=== PATIENT | male | born 1960 | race Caucasian/White ===

== ENCOUNTER 2021-06-25 17:15 | Emergency (ER) | payer OTHER, SELFPAY ==
--- NOTE | ~2021-06-25 | XR_ITS ---
EXAMINATION: XR ABDOMEN KUB CLINICAL INDICATION: Constipation. COMPARISON: None. TECHNIQUE: AP view of the abdomen. FINDINGS: Nonobstructive bowel gas pattern. Moderate stool burden in the right hemicolon. Radiopaque cholelithiasis. No acute osseous abnormalities. XR/XR KUB IMPRESSION: Nonobstructive bowel gas pattern. Moderate stool burden in the right hemicolon.
--- NOTE | ~2021-06-25 | CT_ITS ---
EXAMINATION: CT ABDOMEN AND PELVIS WITH CONTRAST CLINICAL INFORMATION: Constipation and urinary retention for 4 days. COMPARISON: None. TECHNIQUE: Multidetector volumetric images were obtained from the superior aspect of the liver through the pubic symphysis following administration 85 mL of Omnipaque 350 intravenous contrast. Sagittal and coronal reformatted images were obtained on the technologist's workstation. Oral contrast: No This CT examination was performed using dose optimization techniques as appropriate, variously including the following: *Automated exposure control *Adjustment of mA and/or kV according to patient size (this includes techniques or standardized protocols for targeted exams where dose is matched to indication/reason for exam; i.e. extremities or head) *Use of iterative reconstruction technique DLP: 658 mGy-cm FINDINGS: LUNG BASES: No focal consolidation or pleural effusion. LIVER, GALLBLADDER, AND BILIARY TREE: The liver measures 21 cm craniocaudally and is otherwise normal in shape and attenuation without discrete focal abnormalities. Cholelithiasis but no evidence of acute cholecystitis. No biliary ductal dilatation. PANCREAS: Unremarkable. SPLEEN: Unremarkable. ADRENAL GLANDS: Unremarkable. KIDNEYS AND URETERS: There are several bilateral water density cysts with also a few additional hypodensities that are too small to characterize although statistically are likely to represent simple cysts. No hydronephrosis or nephrolithiasis. Mild nonspecific perinephric fat stranding. BLADDER: Distended urinary bladder without focal abnormalities or intraluminal calculi. No perivesical fat stranding. GASTROINTESTINAL TRACT: The stomach and the small bowel are nondilated. Small duodenal diverticuli. There are several fluid filled loops of the small bowel which could be seen in the setting of gastroenteritis/diarrhea. Normal appendix. Sigmoid diverticulosis. No pericolonic inflammatory changes or bowel obstruction. ABDOMINAL WALL: No significant hernia is appreciated. LYMPH NODES: Periportal and peripancreatic lymphadenopathy, for instance measuring 2.8 x 1.5 cm (3:28) and 2.2 x 1.7 cm (3:27). VASCULAR: Scattered atherosclerotic disease. PELVIC VISCERA: Unremarkable. OSSEOUS STRUCTURES: Age indeterminate posterior wedging at L5. Thoracolumbar spondylosis. CT/CT abdomen pelvis w con IMPRESSION: 1. Fluid filled distended loops of small bowel are nonspecific in the absence of significant associated hyperemia or inflammatory changes, and could be seen in the setting of gastroenteritis or diarrhea. 2. Hepatomegaly. 3. Cholelithiasis but no evidence of acute cholecystitis. 4. Diverticulosis but no evidence of acute diverticulitis. 5. Periportal and peripancreatic lymphadenopathy. Recommend clinical correlation with any risk factors to assess further management of these lymph nodes. A follow-up CT could be obtained if clinically indicated. 6. Age indeterminate posterior wedging at L5, correlate for point tenderness.
[2021-06-25 17:37] VITALS: BP 188/89; PULSE 98; RESP 20; TEMP 36.5; O2SAT 97; BMI 27.4
[2021-06-25 19:29] LABS: MANUAL DIFF FLAG NO
[2021-06-25 19:30] LABS: Basophils Percent Auto 0.2 % (0-2); Eosinophils Absolute Auto 0.1 X10*3/uL (0.0-0.4); Eosinophils Percent Auto 1.1 % (0-4); Hematocrit 44.1 % (42.0-52.0); Hemoglobin 15.1 g/dl (14.0-18.0); Imm Gran Abs Auto 0.02 X10*3/uL (0.00-0.03); Imm Gran Pct Auto 0.2 % (0.0-0.4); Lymphocytes Absolute Auto 1.7 X10*3/uL (1.2-4.9); Lymphocytes Percent Auto 19.7 % (20-40); Mean Corpuscular HGB Conc 34.2 g/dl (31.0-36.0); Mean Corpuscular Hemoglobin 28.1 pg (27.0-33.0); Mean Corpuscular Volume 82.1 fL (80.0-98.0); Mean Platelet Volume 8.9 fL (9.4-12.4); Monocytes Absolute Auto 0.8 X10*3/uL (0.1-1.2); Monocytes Percent Auto 8.7 % (2-11); Neutrophils Absolute Auto 6.2 x10*3/uL (2.0-8.3); Neutrophils Percent Auto 70.1 % (45-73); Platelet Count 209 X10*3/uL (160-400); Red Blood Count 5.37 X10*6/uL (4.60-5.80); Red Cell Distribution Width 12.1 % (11.0-16.0); White Blood Count 8.8 X10*3/uL (4.8-10.8)
[2021-06-25 19:50] LABS: Alanine Aminotransferase 33 U/L (0-40); Albumin Level 4.3 g/dL (3.5-5.0); Alkaline Phosphatase 95 U/L (39-117); Anion Gap 13 (12-20); Aspartate Amino Transferase 19 U/L (5-37); Bilirubin Total 0.8 mg/dL (0.0-1.0); Blood Urea Nitrogen 11 mg/dL (9-16); Calcium 9.4 mg/dL (8.4-10.2); Carbon Dioxide 31 mmol/L (22-29); Chloride 95 mmol/L (96-108); Creatinine Clr Calc Pharmacy 108.2; Estimated Glomerular Filt Rate > 60; Glucose Random 261 mg/dL (60-115); Lipase 26 U/L (8-78); Potassium 4.3 mmol/L (3.3-5.1); Sodium 135 mmol/L (135-145)
--- NOTE | 2021-06-25 19:54 | ED_ITS ---
HPI - Abdominal Pain General Chief Complaint: General Medical Stated Complaint: Constipated Time Seen by Provider: 06/25/21 17:28 Source: patient Mode of arrival: ambulatory Limitations: no limitations History of Present Illness HPI narrative: 61-year-old male with a past medical history of hypertension and diabetes presenting to the ED with complaints of nausea with associated cold sweats/diaphoresis, urinary retention and constipation over the past 4 days worse today. Reports that initially on Sunday he felt like he had flu like symptoms he reports subjective fevers, chills and body aches he took a COVID t est was negative. Then on Sunday he developed some constipation and urinary urgency/frequency although decreased urine output. Reports he has had small little balls of bowel movements barely nothing at all. Reports when he wipes he sees bright red blood which he believes may be related to hemorrhoids. He does not see blood makes in the small little balls of stool that he is having. Reports that his father is approximately 90 years old and was diagnosed with colon cancer approximately 20 years ago. He reports that he has taken multiple uqpd-xjh-pfzlegc medications such as laxatives and stool softeners along with enemas and no symptomatic relief. He reports he has been unable to take his blood pressure medication because he has not been feeling good since Sunday therefore this is why his blood pressure is elevated at 1 80/89 today. He denies blood in the toilet without bowel movement. He denies any measured fevers, dizziness, headaches, neck pain/stiffness, trouble swallowing or breathing, chest pain or shortness of breath, dyspnea on exertion, orthopnea, palpitations, paresthesias, radiation of the abdominal pain, abnormal penile discharge, diarrhea, recent travel, sick contacts, recent bad food exposure, recent antibiotic usage or any other symptoms complaints or concerns at this time. MD elicited complaint: abdominal pain Onset (ago): day(s) (4) Pain Consistency: constant Location: diffuse Severity: severe Quality: aching and fullness Radiation: none Migration to: no migration Exacerbating factors: nothing Relieving factors: nothing Associated symptoms: nausea Related Data Previous Rx's Medication Instructions Recorded amoxicillin 875 mg-potassium 1 tab PO BID 7 Days #14 tab 06/25/21 clavulanate 125 mg tablet oxycodone 5 mg tablet 5 mg PO Q6H PRN #10 tab 06/25/21 peg 3350-electrolytes 236 240 ml PO Q10M #4000 ml 06/25/21 gram-22.74 gram-6.74 gram-5.86 gram solution (Golytely) phenazopyridine 100 mg tablet 100 mg PO TID PRN #6 tab 06/25/21 (Pyridium) tamsulosin 0.4 mg capsule (Flomax) 0.4 mg PO DAILY 30 Days #30 cap 06/25/21 Allergies Allergy/AdvReac Type Severity Reaction Status Date / Time No Known Allergies Allergy Verified 06/25/21 17:28 Review of Systems Review of Systems Constitutional : No Fever, No Chills, No Night Sweats, No Fatigue, No Malaise Cardiovascular : No Chest Pain, No SOB Respiratory : No Cough, No Sputum, No Wheezing, No Dyspnea Gastrointestinal : + Nausea, + abdominal pain, + Constipation, No Vomiting, No Diarrhea, No Hematochezia, No Melena Genitourinary : + urinary retention/urinary urgency/frequency/dysuria, No irregular bleeding, No Hematuria,No Urinary Incontinence, No Flank Pain Musculoskeletal : No joint pain, No Myalgias, No Joint Swelling Skin : No Skin Lesions, No rash Neuro : No Weakness, No Numbness, No Paresthesias, No Loss of Consciousness, No Dizziness, No Headache Heme/Lymph: No Lymphadenopathy Endocrine : No Temperature Intolerance Yes all other systems are reviewed and are negative [facility] Past Medical History Attestation statement: The following information was validated with the patient. Medical History Diabetes HTN (hypertension) Surgical History History of right coronary artery stent placement Social History Social History Advance Directives: No Advance Directives Information Provided: No Physical Exam ED Vital Signs: Vital Signs - 24 hr 06/25/21 17:37 06/25/21 21:12 Temperature 97.7 F 98.8 F Pulse Rate 98 85 Respiratory Rate 20 18 Blood Pressure 188/89 H 190/95 H Pulse Oximetry 97 94 BMI result Body Mass Index 27.4 vital signs have been reviewed as normal and appeared to be correct. Blood pressure 188/89. Heart rate normal. Respiration rate normal. Temperature normal. Oxygen saturation normal. Appearance: Alert. Oriented X3. No acute distress. Head: Normal external exam. Normocephalic. Atraumatic. Eyes: PERRLA. EOMI. Conjunctiva and sclera normal. Eyelids normal. ENT: Pharynx normal. Uvula midline. Moist mucous membranes. No lesions/ulcerations or masses noted on the tongue. Normal voice. No trismus noted. No drooling noted. No muffled voice noted. Neck: Normal inspection. Neck supple. FROM. No adenopathy. Thyroid Normal. No meningeal signs. No neck mass noted. CVS: Normal heart rate and rhythm. Heart sound normal. Pulses normal throughout. No murmurs/rales/gallops. Respiratory: No respiratory distress. Painless inspiration. Breath sounds normal. No wheezes/rales/rhonchi noted. Chest nontender. No accessory muscle usage noted or decreased air movement noted. Abdomen: Firm and tender to palpation diffusely questioning distention. Decreased bowel sounds noted. No organomegaly noted. No visible injury noted. Back: No CVA tenderness. Full range of motion noted. Nontender. No signs of trauma. Patient neuro intact bilaterally and distally on all 4 extremities. Patient's reflexes intact bilaterally and distally on all 4 extremities. No rashes/lesion/induration/fluctuance or signs of infection noted. Skin: Skin warm and dry. Normal skin color. Normal skin turgor. No rashes/lesions/lacerations noted. Extremities: No lower extremity edema. No calf tenderness is noted. Extremities exhibit normal range of motion and nontender. Neuro: Oriented X 3. No motor deficit. No sensory deficit. Reflexes normal. Normal steady gait. No focal neuro deficits noted. CN's II-XII intact bilaterally? Vascular: + radial pulses/+ 2 distal pedal pulses/+2 dorsalis pedis b/l. Normal cap refill. No cyanosis noted to upper extremity nails and lower extremity toes nails. Course Course Course Narrative: 20pm - 61-year-old male with a past medical history of hypertension and diabetes presenting to the ED with complaints of nausea with associated cold sweats/di aphoresis, urinary retention and constipation over the past 4 days worse today. Reports that initially on Sunday he felt like he had flu like symptoms he reports subjective fevers, chills and body aches he took a COVID test was negative. Then on Sunday he developed some constipation and urinary u rgency/frequency although decreased urine output. Reports he has had small little balls of bowel movements barely nothing at all. Reports when he wipes he sees bright red blood which he believes may be related to hemorrhoids. He does not see blood makes in the small little balls of stool that he is having. Reports that his father is approximately 90 years old and was diagnosed with colon cancer approximately 20 years ago. He reports that he has taken multiple fjyu-edy-nztceys medications such as laxatives and stool softeners along with enemas and no symptomatic relief. He reports he has been unable to take his blood pressure medication because he has not been feeling good since Sunday t herefore this is why his blood pressure is elevated at 180/89 today. - Patient had labs while he was in the waiting room and chloride 95. Carbon dioxide 31. Random glucose 261. Otherwise all other labs are within normal limits. - KUB revealed nonobstructive bowel gas pattern with moderate stool burden on the right hemicolon otherwise no other acute processes. Therefore at this time will obtain a CT scan abdomen pelvis with IV contrast to evaluate for possible obstruction versus mass versus other acute processes. Provide a L of IV fluids with 4 mg of Zofran and 4 mg of morphine. Obtain a bladder scan and possibly place a Donaldson catheter then re-evaluate. Reevaluation(s) Reevaluation #1: - bladder scan had over a 1000 mL of urine therefore a Donaldson catheter was placed. Patient feels much better after the Donaldson catheter was placed. - CT scan abdomen pelvis with IV contrast revealed possible gastroenteritis or diarrhea. Hepatomegaly. Cholelithiasis no evidence of acute cholecystitis. Diverticulosis but no evidence of acute diverticulitis. Also periportal and peripancreatic lymphadenopathy. And age determinate posterior wedging at L5 otherwise no other acute processes. Therefore I printed out the results and discuss all these findings with the patient and I explained to him that he should follow-up with his PCP for further evaluation treatment and possible an endoscope/colonoscopy. I explained to him that I will send him home with Flomax for possible enlarged prostate and the Donaldson catheter in place along with constipation medications and pain meds although I explained to him that some of these pain meds can make his constipation worse therefore explained to him that he should take it lightly with the pain meds although he reports that his abdomen is in pain and he needs something for pain to go home. Along with instructions to follow-up with the urologist this week for further evaluation treatment on his urinary retention possible enlarged prostate. Patient understands agrees with this plan. Time: 22:51 MDM - Abdominal Pain Medical Records Attestation: I reviewed the patient's medical records. Lab Data Attestation: I reviewed the patient's lab results. Result diagrams: 06/25/21 19:23 06/25/21 19:23 Labs: Lab Results 06/25/21 06/25/21 06/25/21 Range/Units 19: 19: 21:14 WBC 8.8 (4.8-10.8) X10*3/uL RBC 5.37 (4.60-5.80) X10*6/uL Hgb 15.1 (14.0-18.0) g/dl Hct 44.1 (42.0-52.0) % MCV 82.1 (80.0-98.0) fL MCH 28.1 (27.0-33.0) pg MCHC 34.2 (31.0-36.0) g/dl RDW 12.1 (11.0-16.0) % Plt Count 209 (160-400) X10*3/uL MPV 8.9 L (9.4-12.4) fL Immature Gran % (Auto) 0.2 (0.0-0.4) % Neut % (Auto) 70.1 (45-73) % Lymph % (Auto) 19.7 L (20-40) % [place] % (Auto) 8.7 (2-11) % Eos % (Auto) 1.1 (0-4) % Baso % (Auto) 0.2 (0-2) % Lymph # (Auto) 1.7 (1.2-4.9) X10*3/uL [place] # (Auto) 0.8 (0.1-1.2) X10*3/uL Eos # (Auto) 0.1 (0.0-0.4) X10*3/uL Baso # (Auto) 0.0 (0.0-0.2) X10*3/uL Abs Immat Gran (auto) 0.02 (0.00-0.03) X10*3/uL Absolute Neuts (auto) 6.2 (2.0-8.3) x10*3/uL Absolute Nucleated RBC 0.000 (0.0-0.012) X10*3/uL Nucleated RBC % (auto) 0.0 (0.0-0.2) /100WBC Sodium 135 (135-145) mmol/L Potassium 4.3 (3.3-5.1) mmol/L Chloride 95 L (96-108) mmol/L Carbon Dioxide 31 H (22-29) mmol/L Anion Gap 13 (12-20) BUN 11 (9-16) mg/dL Creatinine 0.82 (0.5-1.4) mg/dL Estim Creat Clear Calc 108.2 Estimated GFR > 60 Random Glucose 261 H (60-115) mg/dL Calcium 9.4 (8.4-10.2) mg/dL Total Bilirubin 0.8 (0.0-1.0) mg/dL AST 19 (5-37) U/L ALT 33 (0-40) U/L Alkaline Phosphatase 95 (39-117) U/L Total Protein 8.0 (6.5-8.0) g/dL Albumin 4.3 (3.5-5.0) g/dL Lipase 26 (8-78) U/L Urine Color YELLOW Urine Appearance CLEAR Urine pH 7.0 (5.0-8.0) Ur Specific [place] 1.015 (1.005-1.025) Urine Protein NEG (NEG-TRACE) MG/DL Urine Glucose (UA) >=1000 H (NEG) MG/DL Urine Ketones NEG (NEG) MG/DL Urine Blood NEG (NEG) Urine Nitrite NEG (NEG) Ur Leukocyte Esterase NEG (NEG) Urine RBC 0-2 (0) /HPF Urine WBC 0-2 (0-4) /HPF Ur Squamous Epith Cells TRACE /LPF Urine Bacteria NONE /LPF Imaging Data KUB : Attestation: I personally reviewed and interpreted this imaging study as follows: Radiologist's impression: FINDINGS: Nonobstructive bowel gas pattern. Moderate stool burden in the right hemicolon. Radiopaque cholelithiasis. No acute osseous abnormalities. XR/XR KUB IMPRESSION: Nonobstructive bowel gas pattern. ? Moderate stool burden in the right hemicolon. CT scan abdomen pelvis with IV contrast: Attestation: I personally reviewed and interpreted this imaging study as follows: Radiologist's impression: FINDINGS: LUNG BASES: No focal consolidation or pleural effusion.? LIVER, GALLBLADDER, AND BILIARY TREE: The liver measures 21 cm craniocaudally and is otherwise normal in shape and attenuation without discrete focal abnormalities. Cholelithiasis but no evidence of acute cholecystitis. No biliary ductal dilatation. PANCREAS: Unremarkable.? SPLEEN: Unremarkable.? ADRENAL GLANDS: Unremarkable.? KIDNEYS AND URETERS: There are several bilateral water density cysts with also a few additional hypodensities that are too small to characterize although statistically are likely to represent simple cysts. No hydronephrosis or nephrolithiasis. Mild nonspecific perinephric fat stranding.? BLADDER: Distended urinary bladder without focal abnormalities or intraluminal calculi. No perivesical fat stranding.? GASTROINTESTINAL TRACT: The stomach and the small bowel are nondilated. Small duodenal diverticuli. There are several fluid filled loops of the small bowel which could be seen in the setting of gastroenteritis/diarrhea. Normal appendix. Sigmoid diverticulosis. No pericolonic inflammatory changes or bowel obstruction.? ABDOMINAL WALL: No significant hernia is appreciated.? LYMPH NODES: Periportal and peripancreatic lymphadenopathy, for instance measuring 2.8 x 1.5 cm (3:28) and 2.2 x 1.7 cm (3:27). VASCULAR: Scattered atherosclerotic disease. PELVIC VISCERA: Unremarkable.? OSSEOUS STRUCTURES: Age indeterminate posterior wedging at L5. Thoracolumbar spondylosis.? CT/CT abdomen pelvis w con IMPRESSION: 1.? Fluid filled distended loops of small bowel are nonspecific in the absence of significant associated hyperemia or inflammatory changes, and could be seen in the setting of gastroenteritis or diarrhea. ? 2.? Hepatomegaly. ? 3.? Cholelithiasis but no evidence of acute cholecystitis. ? 4.? Diverticulosis but no evidence of acute diverticulitis. ? 5.? Periportal and peripancreatic lymphadenopathy. Recommend clinical correlation with any risk factors to assess further management of these lymph nodes. A follow-up CT could be obtained if clinically indicated. ? 6.? Age indeterminate posterior wedging at L5, correlate for point tenderness.? Critical Care Time Critical Care Time Critical Care Time: Yes Total Critical Care Time: 60 Attestation: I personally attest to this time spent taking care of the patient Discharge Plan Discharge Clinical Impression: Constipation, Acute urinary retention, Periportal lymphadenopathy Patient Disposition: Home, Self-Care Instructions: Constipation (DC), Urinary Retention in Men (ED), Lymphadenopathy (ED) Prescriptions: New amoxicillin-pot clavulanate 875-125 mg tablet 1 tab PO BID 7 Days Qty: 14 0RF oxycodone 5 mg tablet 5 mg PO Q6H PRN (Reason: pain) Qty: 10 0RF peg 3350-electrolytes [Golytely] 236-22.74-6.74 -5.86 gram recon soln 240 ml PO Q10M Qty: 4000 0RF Rx Instructions: until fecal effluent is clear tamsulosin [Flomax] 0.4 mg capsule 0.4 mg PO DAILY 30 Days Qty: 30 0RF phenazopyridine [Pyridium] 100 mg tablet 100 mg PO TID PRN (Reason: pain) Qty: 6 0RF Referrals: Zachary Pugh MD [Physician] - (Call on Sunday to make a follow-up appointment within 1 week) PhysicianHiginio [Primary Care Provider] - (You should also follow-up with her PCP within 1 week) Print Language: Burkinan
[2021-06-25] MEDS: ondansetron HCL 4 MG/2 ML VIAL IVPUSH (20:07)
[2021-06-25] MEDS: Morphine Sulfate 4 MG/ML CARTRIDGE IVPUSH (20:07)
[2021-06-25] MEDS: 0.9 % Sodium Chloride 1,000 ML 999 ML IVCONT (20:10)
[2021-06-25] MEDS: iohexoL 350 MG/ML 100 ML INFUS..BTL IV (20:36)
[2021-06-25 21:12] VITALS: BP 190/95; PULSE 85; RESP 18; TEMP 37.1; O2SAT 94
[2021-06-25 21:23] LABS: Appearance Urine CLEAR; Color Urine YELLOW; Glucose Urine UA >=1000 MG/DL (NEG); Leukocyte Esterase Urine NEG (NEG); Nitrite Urine NEG (NEG); Specific Gravity - Urine 1.015 (1.005-1.025); Urine Blood NEG (NEG); Urine Ketones NEG (NEG); Urine Protein NEG (NEG-TRACE)
[2021-06-25 21:58] LABS: RBC Urine 0-2 /HPF (0); Squamous Epithelial Cell Urine TRACE /LPF; WBC Urine 0-2 /HPF (0-4)
[2021-06-26] VITALS: BP 153/77; PULSE 92; RESP 20; TEMP 36.4; O2SAT 97
== END 2021-06-26 00:30 | disposition home or self-care (01) ==
PROVIDERS: Emergency Provider Emergency Medicine Emergency Medical Services
DX: R33.9 Retention of urine, unspecified (principal); K59.00 Constipation, unspecified; R59.1 Generalized enlarged lymph nodes; Z79.899 Other long term (current) drug therapy
CPT/HCPCS: 36415; 51702; 51798; 74018; 74177; 80053; 81001; 83690; 85025; 96361; 96374; 96375; 99284; 99291; J2270; J2405; Q9967

== ENCOUNTER → 2021-06-27 13:18 | Outpatient (BNVA) | payer OTHER, SELFPAY | DX: Z13.89 Encounter for screening for other disorder (principal) ==

== ENCOUNTER → 2021-07-26 10:27 | Outpatient (BNVA) | payer OTHER, SELFPAY | PROVIDERS: Visit Provider Urology | DX: R33.9 Retention of urine, unspecified (principal); E08.40 Diabetes mellitus due to underlying condition with diabetic neuropathy, unspecified | CPT/HCPCS: 51798; 99202 ==

== ENCOUNTER → 2021-09-28 10:24 | Outpatient (BNVA) | payer OTHER, SELFPAY | PROVIDERS: Visit Provider Urology | DX: R33.9 Retention of urine, unspecified (principal) | CPT/HCPCS: 51798; 99212 ==

== ENCOUNTER → 2022-03-31 08:57 | Outpatient (BNVA) | payer OTHER, SELFPAY | PROVIDERS: Visit Provider Urology | DX: R33.9 Retention of urine, unspecified (principal); N40.1 Benign prostatic hyperplasia with lower urinary tract symptoms; E11.69 Type 2 diabetes mellitus with other specified complication; E11.42 Type 2 diabetes mellitus with diabetic polyneuropathy; N52.1 Erectile dysfunction due to diseases classified elsewhere; I10 Essential (primary) hypertension; Z95.5 Presence of coronary angioplasty implant and graft; Z79.899 Other long term (current) drug therapy | CPT/HCPCS: 51798; 99212 ==

== ENCOUNTER 2022-04-10 10:50 | Outpatient (REF) | payer OTHER, SELFPAY ==
[2022-04-10 12:13] LABS: MANUAL DIFF FLAG NO
[2022-04-10 12:31] LABS: Basophils Percent Auto 0.7 % (0-2); Eosinophils Absolute Auto 0.2 X10*3/uL (0.0-0.4); Eosinophils Percent Auto 2.5 % (0-4); Hematocrit 42.8 % (42.0-52.0); Hemoglobin 14.2 g/dl (14.0-18.0); Imm Gran Abs Auto 0.02 X10*3/uL (0.00-0.03); Imm Gran Pct Auto 0.3 % (0.0-0.4); Lymphocytes Absolute Auto 1.8 X10*3/uL (1.2-4.9); Mean Corpuscular HGB Conc 33.2 g/dl (31.0-36.0); Mean Corpuscular Volume 84.3 fL (80.0-98.0); Monocytes Absolute Auto 0.6 X10*3/uL (0.1-1.2); Monocytes Percent Auto 10.2 % (2-11); Neutrophils Absolute Auto 3.4 x10*3/uL (2.0-8.3); Neutrophils Percent Auto 56.3 % (45-73); Platelet Count 232 X10*3/uL (160-400); Red Blood Count 5.08 X10*6/uL (4.60-5.80)
[2022-04-10 13:11] LABS: Alanine Aminotransferase 19 U/L (0-40); Albumin Level 4.5 g/dL (3.5-5.0); Alkaline Phosphatase 79 U/L (39-117); Anion Gap 14 (12-20); Aspartate Amino Transferase 18 U/L (5-37); Bilirubin Total 0.6 mg/dL (0.0-1.0); Blood Urea Nitrogen 14 mg/dL (9-16); C Reactive Protein 0.34 mg/dL (< or = 0.50); Calcium 9.3 mg/dL (8.4-10.2); Carbon Dioxide 23 mmol/L (22-29); Chloride 104 mmol/L (96-108); Estimated Glomerular Filt Rate > 60; Glucose Random 203 mg/dL (60-115); Magnesium 1.9 mg/dL (1.6-2.6); Potassium 4.2 mmol/L (3.3-5.1); Sodium 137 mmol/L (135-145); Total Protein 7.9 g/dL (6.5-8.0)
[2022-04-10 13:22] LABS: Erythrocyte Sedimentation Rate 20 MM/HR (0-15)
[2022-04-10 13:40] LABS: Ferritin 523 ng/mL (20-250); TSH reflex Free T4 1.61 uIU/mL (0.32-4.0); Vitamin B12 403 pg/mL (200-900); Vitamin D 25-OH Total 26.5 ng/mL (>30)
[2022-04-12 22:18] LABS: Transglutaminase Ab IgG <1.0 U/mL; Transglutaminase IgA <1.0 U/mL
[2022-04-13 13:13] LABS: Vitamin C 0.7 mg/dL (0.2-2.1)
[2022-04-13 16:49] LABS: Alpha-Tocopherol 13.7 mg/L (5.7-19.9); Beta-Gamma Tocopherol 1.4 mg/L (<=4.3)
[2022-04-13 23:19] LABS: Vitamin A 62 mcg/dL (38-98)
[2022-04-14 00:17] LABS: Aldolase 4.9 U/L (<=8.1)
[2022-04-14 05:58] LABS: Zinc 84 mcg/dL (60-130)
[2022-04-14 17:33] LABS: Vitamin B1 12 nmol/L (8-30)
[2022-04-15 17:49] LABS: Nicotinamide <20 ng/mL; Vit B3 - Nicotinic Acid <20 ng/mL
[2022-04-15 19:24] LABS: Vitamin B5 (Pantothenic Acid) <40 ng/mL (<275)
[2022-04-16 20:39] LABS: Vitamin K1 848 pg/mL (130-1500)
[2022-04-18 14:33] LABS: Vitamin B6 6.8 ng/mL (2.1-21.7)
== END 2022-04-10 10:51 | disposition home or self-care (01) ==
LOC: HO.LAB 10:50
PROVIDERS: Visit Provider Internal Medicine Gastroenterology
DX: R10.33 Periumbilical pain (principal); K59.00 Constipation, unspecified; R19.7 Diarrhea, unspecified; I10 Essential (primary) hypertension; E46 Unspecified protein-calorie malnutrition; R15.9 Full incontinence of feces; K75.81 Nonalcoholic steatohepatitis (NASH); G89.29 Other chronic pain
CPT/HCPCS: 36415; 80053; 82085; 82180; 82306; 82607; 82728; 82746; 83735; 84207; 84425; 84443; 84446; 84590; 84591; 84597; 84630; 85025; 85652; 86140; 86364; 99202

== ENCOUNTER 2022-05-17 10:20 | Day surgery (SDC) | payer OTHER, SELFPAY ==
--- NOTE | 2022-05-16 12:36 | P.CONAN_ITS ---
Documented by User: Alee Huggins NP 05/16/22 12:51 HPI - Anesthesia Eval Consult details Narrative: 62yo M for Colonoscopy s/p cardiac stent ~2019. Follows PCP (unable to reach [facility] medical records for last OV note). Denies CP since. PMFSH Active Problems Active Problems: All Active Problems (Updated 04/10/22 @ 11:42 by Bonilla Sanchez MD) Malnutrition (Acute) Incontinence of feces (Acute) Erectile dysfunction associated with type 2 diabetes mellitus (Acute) Diabetic neuropathy associated with diabetes mellitus due to underlying con dition (Acute) Urinary retention with incomplete bladder emptying (Acute) Diabetes (Acute) HTN (hypertension) (Acute) Past Medical History Medical History (Updated 04/10/22 @ 11:42 by Bonilla Sanchez MD) Diabetes HTN (hypertension) Family History Family History (Updated 04/10/22 @ 11:07 by JIMENA Ritter) Father Colon cancer Surgical History Surgical History (Updated 04/10/22 @ 11:07 by JIMENA Ritter) History of right coronary artery stent placement Hx of colonoscopy Social History Social History Patient Tobacco Use Status: Former Tobacco user Meds Allergies Allergy/AdvReac Type Severity Reaction Status Date / Time No Known Allergies Allergy Verified 03/31/22 09:45 Home Medications Medication Instructions Recorded Confirmed Last Taken Type duloxetine 60 mg capsule,delayed 60 mg PO DAILY 09/27/21 Unknown History release sitagliptin phosphate 25 mg tablet 25 mg PO DAILY 09/27/21 Unknown History (Januvia) atorvastatin 40 mg tablet 40 mg PO DAILY 04/10/22 Unknown History flash glucose sensor (FreeStyle #1 ea 04/10/22 Unknown History Ella 2 Sensor kit) lisinopril 30 mg tablet 30 mg PO DAILY 04/10/22 Unknown History metformin 500 mg tablet 500 mg PO BID 04/10/22 Unknown History metoprolol tartrate 25 mg tablet 25 mg PO DAILY 04/10/22 Unknown History phenazopyridine 100 mg tablet 100 mg PO TID PRN pain 04/10/22 Unknown History (Pyridium) tadalafil 10 mg tablet 10 mg PO DAILY sexual activity 04/10/22 Unknown History trazodone 50 mg tablet 50 mg PO BEDTIME PRN 04/10/22 Unknown History Exam Exam Date and Time: May 16, 2022 1236 Pertinent Lab Results Pertinent Lab Results: Laboratory Tests 04/10/22 04/10/22 12:11 12:11 WBC 6.0 Hgb 14.2 Hct 42.8 Plt Count 232 Sodium 137 Potassium 4.2 Chloride 104 Carbon Dioxide 23 BUN 14 Creatinine 0.84 Assessment and Plan Assessment Anesthesia Assessment: Chart Reviewed Documented by User: Ck Link MD 05/17/22 16:57 HPI - Anesthesia Eval Consult details Narrative: 62yo M for Colonoscopy s/p cardiac stent ~2018. Follows PCP (unable to reach [facility] medical records for last OV note). Denies CP since. numbness , b/ l LE chronic back pain s/p back surgery PMFSH Past Medical History Medical History (Updated 04/10/22 @ 11:42 by Bonilla Sanchez MD) Diabetes HTN (hypertension) Functional capacity: independent ambulation Family History Family History (Updated 04/10/22 @ 11:07 by JIMENA Ritter) Father Colon cancer Family history of problems with anesthesia: No Surgical History Surgical History (Updated 04/10/22 @ 11:07 by JIMENA Ritter) History of right coronary artery stent placement Hx of colonoscopy History of Problems with Anesthesia: No Social History Social History Patient Tobacco Use Status: Former Tobacco user Meds Allergies Allergy/AdvReac Type Severity Reaction Status Date / Time No Known Allergies Allergy Verified 03/31/22 09:45 Home Medications Medication Instructions Recorded Confirmed Last Taken Type duloxetine 60 mg capsule,delayed 60 mg PO DAILY 09/27/21 Unknown History release sitagliptin phosphate 25 mg tablet 25 mg PO DAILY 09/27/21 Unknown History ([place]) atorvastatin 40 mg tablet 40 mg PO DAILY 04/10/22 Unknown History flash glucose sensor (FreeStyle #1 ea 04/10/22 Unknown History Ella 2 Sensor kit) lisinopril 30 mg tablet 30 mg PO DAILY 04/10/22 Unknown History metformin 500 mg tablet 500 mg PO BID 04/10/22 Unknown History metoprolol tartrate 25 mg tablet 25 mg PO DAILY 04/10/22 Unknown History phenazopyridine 100 mg tablet 100 mg PO TID PRN pain 04/10/22 Unknown History (Pyridium) tadalafil 10 mg tablet 10 mg PO DAILY sexual activity 04/10/22 Unknown History trazodone 50 mg tablet 50 mg PO BEDTIME PRN 04/10/22 Unknown History Exam Airway Mallampati Class: III TM Dist: >3cm Neck ROM: Full Loose/Missing/Broken Teeth: Yes (Loose lower left , front upper chiipec) Heart: S1,S2 Lungs: b/l breath sounds Assessment and Plan Assessment Anesthesia Assessment: Anesthesia Plan Discussed Final Anesthetic Review Family History of Problems with Anesthesia: No History of Problems with Anesthesia: No NPO: Yes ASA Class: III Final Preanesthetic Review: Meds/Allgs Chart Reviewed, Consent Obtained/Reviewed and Anes Risks/Benef Reviewed Patient Risk: Intermediate Procedure Risk: Intermediate Anesthetic Plan Anesthetic Plan: MAC: Disposition: Standard PACU
[2022-05-17 12:20] VITALS: BMI 27.7
[2022-05-17] MEDS: Lactated Ringers 1,000 ML 100 ML IVCONT (12:38)
[2022-05-17 12:39] VITALS: BP 133/72; PULSE 58; RESP 18; TEMP 36.5; O2SAT 93
[2022-05-17 12:41] LABS: Glucose, Whole Blood 165 mg/dL (60-115)
--- NOTE | 2022-05-17 13:34 | MHC.SHP ---
Pre-Procedural Eval Section A Date of Service: 05/17/22 Section B Chief Complaint: Full incontinence of feces Details of Present Illness: father had CRC Relevant Family History (Specify if Yes): Yes Relevant Social History: None Present Medications: see Short Stay Collaborative assessment Medical History: Significant History (DM, HTN, ED) History of Previous Operations: Relevant previous surgery/procedure and date(s) (amputation -partial of foot) Allergies: Allergies Allergy/AdvReac Type Severity Reaction Status Date / Time No Known Allergies Allergy Verified 03/31/22 09:45 Review of Systems Sugical H&P ROS: Negative: Constitution, Cardiovascular, Respiratory, Neurological, Psychiatric, Hem-Onc, Allergic/Immunologic, Gastrointestinal, Genitourinary, Musculoskeletal, Integumentary, Endocrine and Eyes/Ears/Nose/Throat Exam Surgical H&P Exam: Normal: HEENT, Normal: Heart, Normal: Lungs, Normal: Extremities, Normal: Abdomen, Normal: Skin and Normal: Neurological Plan Diagnosis/Plan: Unchanged I have reviewed the history and physical and performed a pertinent physical examination on my patient. No changes have occurred unless specified. Time Spent With Patient Time: Total time managing care of this patient today ____ minutes.
--- NOTE | 2022-05-17 13:36 | P.OP_ITS ---
Operative Note Operative Note Date of Service: 05/17/22 Narrative: Operative Information Procedure Description: Colonoscopy Indication: fecal incontinence Anesthesia: MAC COLONOSCOPY Instrument: Olympus variable stiffness pediatric scope 190L Colonoscopy Monitoring: Vital signs and clinical assessment, continuous EKG monitoring, Pulse oximetry, Carbon Dioxide monitoring and blood pressure monitoring were done throughout the procedure. Colon withdrawal time was 8 minutes. Procedure: The patient was placed in the left lateral decubitis position and pre-procedure medications were administered. After a digital rectal examination of the ano-rectum, the video colonoscope was inserted into the rectum and advanced through the colon to the cecum/TI. The colonoscope was slowly withdrawn in a retrograde panoramic fashion and the colon mucosa was carefully examined including a retroflexed view of the rectum. Findings and interventions are described below. Procedure Difficulty: easy, anal tone was lax Findings: Terminal Ileum-normal, random bx taken Cecum: slightly granular mucosa, bx taken Ascending Colon: normal, random bx taken, few tics seen Transverse Colon -normal Descending Colon:normal Sigmoid Colon: moderate severe diverticulosis noted, random bx taken Rectum: Retroflexion with medium sized internal hemorrhoids, grade I, random bx taken Anorectum - normal Colon preparation: [place] Bowel Preparation Scale Right colon; 2 Transverse colon: 2 Left colon; 1-2 (0 = Unprepared colon segment with mucosa not seen due to solid stool that cannot be cleared. 1 = Portion of mucosa of the colon segment seen, but other areas of the colon segment not well seen due to staining, residual stool and/or opaque liquid. 2 = Minor amount of residual staining, small fragments of stool and/or opaque liquid, but mucosa of colon segment seen well. 3 = Entire mucosa of colon segment seen well with no residual staining, small fragments of stool or opaque liquid) Impression and Post Procedure Diagnosis: internal hemorrhoids diverticular disease lax anal sphincter Plan: High fiber diet leaflet Avoid straining at stool, epsom salts and sitz bath, anusol supps or cream Repeat Colonoscopy in 5 years due to FH and fair prep on left or earlier if clinically indicated try fiber 3 times a week, e.g M, W, Fri (he felt fiber was constipating him too much) Above findings were reviewed with the patient and relevant handouts were provided if indicated.
[2022-05-17 14:31] VITALS: BP 124/60; PULSE 59; RESP 20; TEMP 36.8; O2SAT 94
[2022-05-17 14:45] VITALS: BP 117/57; PULSE 60; RESP 20; O2SAT 96
[2022-05-17 15:00] VITALS: BP 123/48; PULSE 62; RESP 16; TEMP 36.9; O2SAT 97
== END 2022-05-17 15:20 | disposition home or self-care (01) ==
PROVIDERS: Visit Provider Internal Medicine Gastroenterology
PROC: 0DJD8ZZ Inspection of Lower Intestinal Tract, Via Natural or Artificial Opening Endoscopic (ICD-10-PCS; CPT 45378; principal; 2022-05-17 13:00)
DX: R15.9 Full incontinence of feces (principal); E46 Unspecified protein-calorie malnutrition; Z68.28 Body mass index [BMI] 28.0-28.9, adult; Z80.0 Family history of malignant neoplasm of digestive organs; K57.30 Diverticulosis of large intestine without perforation or abscess without bleeding; K64.0 First degree hemorrhoids; K62.89 Other specified diseases of anus and rectum; I10 Essential (primary) hypertension; N52.1 Erectile dysfunction due to diseases classified elsewhere; E11.40 Type 2 diabetes mellitus with diabetic neuropathy, unspecified; Z79.84 Long term (current) use of oral hypoglycemic drugs; Z79.899 Other long term (current) drug therapy; Z87.891 Personal history of nicotine dependence
CPT/HCPCS: 45380; 82947; 88305

== ENCOUNTER → 2022-06-28 13:37 | Outpatient (BNVA) | payer OTHER, SELFPAY | PROVIDERS: PCP Physician Assistant Medical; Visit Provider Urology ==

== ENCOUNTER 2022-06-30 14:11 | Outpatient (REF) | payer OTHER, SELFPAY | END 2022-06-30 14:12 | disposition home or self-care (01) | LOC: HO.LAB 14:11 | PROVIDERS: Visit Provider Internal Medicine Gastroenterology | DX: Z91.018 Allergy to other foods (principal) | CPT/HCPCS: 36415; 86003 ==

== ENCOUNTER 2022-09-01 09:24 | Outpatient (REF) | payer OTHER, SELFPAY | END 2022-09-01 09:25 | disposition home or self-care (01) | LOC: HO.LAB 09:24 | PROVIDERS: PCP Physician Assistant Medical; Visit Provider Internal Medicine Gastroenterology | DX: K52.82 Eosinophilic colitis (principal) | CPT/HCPCS: 99212 ==

== ENCOUNTER 2022-09-20 16:08 | Outpatient (REF) | payer OTHER, SELFPAY ==
[2022-09-27 17:53] LABS: Lactoferrin, Fecal, Quant. <6.25 mcg/mL (<7.25)
== END 2022-09-20 16:09 | disposition home or self-care (01) ==
LOC: HO.LNP 16:08
PROVIDERS: Visit Provider Internal Medicine Gastroenterology
DX: K52.82 Eosinophilic colitis (principal)
CPT/HCPCS: 83631

== ENCOUNTER 2022-10-11 10:05 | Outpatient (AMB) | payer OTHER, SELFPAY ==
--- NOTE | 2022-10-11 10:06 | MHC.OFFVIS ---
Intake Intake Visit Reasons: H&P (Interstim I&II) Intake Note: Pt presents as a telehealth today for a H&P Interstim I&II. Allergies No Known Allergies Allergy (Verified 10/11/22 10:07) HPI HPI Comments History of Present Illness Details Inocente is a pleasant male. He is a patient of Dr. Chavez. He is seen for the following urologic conditions - lower urinary tract symptoms - erectile dysfunction in setting of diabetes Telemedicine Evaluation 15 min Consultation [employer] Raina Video attempted Confirmed InterStim process with testing coordinator Shailesh will be present to program Has been evaluated by GI and diagnosed with ulcerative colitis and loose rectum with fecal incontinence Recommendation from Gastroenterology is for trial of InterStim Did have good response to daily tadalafil 10 mg Erectile Dysfunction in setting of diabetes Current therapy daily 10 mg tadalafil Effective response with medication and weaning of duloxetine Prior therapy on demand sildenafil Lower urinary tract symptoms Initial presentation with urinary retention background diabetes Past voiding trial after spinal intervention Had episode of spinal stenosis with urinary retention [id number] Underwent decompression with Dr. Chen Has had significant return of urinary function [facility] Medical History Diabetes HTN (hypertension) Surgical History History of right coronary artery stent placement Hx of colonoscopy Hx of discectomy Family History Father Colon cancer Social History Patient Tobacco Use Status: Former Tobacco user Review of Systems Const All systems reviewed & are unremarkable except as noted in HPI and below Reports no additional complaints Resp Reports no additional complaints GI Reports no additional complaints Reports as per HPI Musc Reports no additional complaints Physical Exam Telemedicine evaluation Appropriate responses Regular breathing rate and rhythm HEENT Head: Yes normal to inspection Ears: hearing grossly normal bilaterally Eyes General: appearance normal, both eyes and all related structures Neck Neck: Yes normal visual inspection Chest Chest palpation & inspection: normal inspection of the chest Resp Effort & Inspection: normal respiratory effort and able to speak in complete sentences Assessment & Plan Assessment & Plan (1) Urinary retention with incomplete bladder emptying: Code(s): R33.9 - Retention of urine, unspecified (2) Incontinence of feces: Code(s): R15.9 - Full incontinence of feces Plan Risks, benefits and alternatives to therapy were discussed. These include but are not limited to infection, bleeding, damage to local organs and tissues, need for further interventions. Anesthetic risks regarding cardiac arrhythmia, blood clots, and potential mortality were discussed. The patient understands the typical recovery time and the outpatient nature of the procedure. After consideration of these risks the patient gives full informed consent and they wish to move ahead with the procedure. InterStim phase 1 Patient Instructions: Imaging studies, laboratory and physical exam results were discussed and reviewed in detail. No major barriers to patient understanding were identified. An opportunity to ask questions regarding the treatment plan was provided. All questions were answered. The patient expressed understanding and agreement with the above treatment plan. The patient is aware they should contact our office by phone for worsening of their current condition or the appearance of new urologic symptoms. Compliance is encouraged with any medications and followup testing that is ordered. It is a privilege to participate in the urologic care of your patient. If you have any questions or concerns regarding treatment for the above conditions, or other urologic issues, please do not hesitate to contact me. The office telephone contact is [phone]. This note is constructed using voice recognition software. While every effort has been made to ensure accuracy lens grinder rough errors may have been included. Yours sincerely, Dr Zachary Pugh MD, [facility] - Urology Providers of Expert, Compassionate Care for the Genitourinary System Telehealth Telehealth Location of provider rendering services: practice address Location of patient: address on file Patient Identification confirmed using: Name, : Yes Telehealth method: video Patient verbally consented to treatment: Yes Patient verbally consented to billing insurance company: Yes Patient informed of any privacy concerns related to visit: Yes Coding Level of Care Code Tele Est Pt Level 3 (31033) Diagnoses Urinary retention with incomplete bladder emptying R33.9 Incontinence of feces R15.9
== END 2022-10-11 10:48 | disposition home or self-care (01) ==
LOC: HO.HUSH 10:05
PROVIDERS: PCP Physician Assistant Medical; Visit Provider Urology
DX: R33.9 Retention of urine, unspecified (principal); R15.9 Full incontinence of feces
CPT/HCPCS: 99213

== ENCOUNTER → 2022-10-11 10:05 | Outpatient (BNVA) | payer OTHER, SELFPAY | PROVIDERS: PCP Physician Assistant Medical; Visit Provider Urology ==

== ENCOUNTER 2022-10-23 09:16 | Day surgery (SDC) | payer OTHER, SELFPAY ==
[2022-10-18 15:32] VITALS: BMI 27.8
--- NOTE | ~2022-10-23 | FL_ITS ---
EXAMINATION: XR FLUOROSCOPY WITH IMAGES CLINICAL INFORMATION: Left sided stimulation placement. COMPARISON: CT scan of the abdomen and pelvis dated 06/25/2021 TECHNIQUE: Fluoroscopy Supervised By: Dr. Pugh. Fluoroscopy Time: 224.3 seconds. Cumulative Dose: 132.61 mGy. Images: 2. FL/FL guidance in OR FINDINGS/IMPRESSION: A single stimulation lead overlies the left hemipelvis. Please refer to the operative report for more detailed findings.
--- NOTE | 2022-10-23 09:24 | ECG_ITS ---
Test Reason : HX of Cardiac Stent Blood Pressure : / mmHG Vent. Rate : 056 BPM Atrial Rate : 056 BPM P-R Int : 194 ms QRS Dur : 088 ms QT Int : 456 ms P-R-T Axes : 048 051 051 degrees QTc Int : 440 ms Sinus bradycardia Otherwise normal ECG No previous ECGs available Referred By: Mario Marti Electronically Signed By:RICARDA REAVES
[2022-10-23 09:46] LABS: Glucose, Whole Blood 152 mg/dL (60-115)
[2022-10-23 09:47] VITALS: BP 131/63; PULSE 61; RESP 18; TEMP 36.7; O2SAT 96
[2022-10-23] MEDS: Lactated Ringers 1,000 ML 50 ML IVCONT (10:26)
--- NOTE | 2022-10-23 10:55 | MHC.SHP ---
Pre-Procedural Eval Section A Date of Service: 10/23/22 The patient is an INPATIENT: No Changes since office visit: No Cold of Flu in the past 2 weeks, No New Medical Problems, No Changes in Medication and No Patient answered all questions The History & Physical has been completed within 30 days and I have reviewed it.: Yes Section B Chief Complaint: Full incontinence of feces Allergies: Allergies Allergy/AdvReac Type Severity Reaction Status Date / Time No Known Allergies Allergy Verified 10/23/22 09:31 Plan I have reviewed the history and physical and performed a pertinent physical examination on my patient. No changes have occurred unless specified. Time Spent With Patient Time: Total time managing care of this patient today ____ minutes.
--- NOTE | 2022-10-23 11:13 | P.CONAN_ITS ---
HPI - Anesthesia Eval Consult details Narrative: for interstim lead test PMFSH Active Problems Active Problems: All Active Problems (Updated 10/18/22 @ 15:41 by Lisset Montague, RN) Urinary retention with incomplete bladder emptying (Acute) Diabetic neuropathy associated with diabetes mellitus due to underlying condition (Acute) Erectile dysfunction associated with type 2 diabetes mellitus (Acute) Incontinence of feces (Acute) Malnutrition (Acute) Food allergy (Acute) Eosinophilic colitis (Acute) Diabetes (Acute) HTN (hypertension) (Acute) Past Medical History Medical History CAD (coronary artery disease) Diabetes HTN (hypertension) Narrative: No problems since his stent. Family History Family History Father Colon cancer Family history of problems with anesthesia: No Surgical History Surgical History History of right coronary artery stent placement Hx of colonoscopy Hx of discectomy History of Problems with Anesthesia: No Social History Social History Patient Tobacco Use Status: Former Tobacco user Substance Use Frequency: Daily Are you DNR?: No Advance Directives: No Advance Directives Information Provided: Yes Nutrition Risks: No Nutritional Risk Meds Allergies Allergy/AdvReac Type Severity Reaction Status Date / Time No Known Allergies Allergy Verified 10/23/22 09:31 Active Medications: Current Medications Lactated Ringer's (Lr) 1,000 mls @ 50 mls/hr IVCONT .Q20H EN Last Admin: 10/23/22 10:26 Dose: 50 mls/hr Home Medications Medication Instructions Recorded Confirmed Last Taken Type sitagliptin phosphate 25 mg tablet 25 mg PO DAILY 09/27/21 10/23/22 Unknown History (Januvia) atorvastatin 40 mg tablet 40 mg PO DAILY 04/10/22 10/23/22 Unknown History flash glucose sensor (FreeStyle #1 ea 04/10/22 06/28/22 Unknown History Ella 2 Sensor kit) lisinopril 30 mg tablet 30 mg PO DAILY 04/10/22 10/23/22 Unknown History metoprolol tartrate 25 mg tablet 25 mg PO DAILY 04/10/22 10/23/22 10/23/22 History lorazepam 0.5 mg tablet (Ativan) 0.5 mg PO BEDTIME PRN Anxiety 09/01/22 10/23/22 Unknown History metformin 500 mg tablet 500 mg PO DAILY 09/01/22 10/23/22 Unknown History dextroamphetamine-amphetamine 5 mg 1 tab PO DAILY 10/11/22 10/23/22 Unknown History tablet Exam Exam Date and Time: October 23, 2022 1113 Height,Weight and Vital Signs: Height 6 ft 1 in Weight 95.708 kg Last Vital Signs Temp 98.0 F 10/23/22 09:47 Pulse 61 10/23/22 09:47 Resp 18 10/23/22 09:47 BP 131/63 10/23/22 09:47 Pulse Ox 96 10/23/22 09:47 O2 Del Method Room Air 10/23/22 09:47 Pertinent Lab Results Pertinent Lab Results: Laboratory Tests 10/23/22 09:36 POC Glucose 152 H Airway Mallampati Class: I TM Dist: >3cm Neck ROM: Full Heart: ok Lungs: ok Assessment and Plan Assessment Anesthesia Assessment: Anesthesia Plan Discussed and Chart Reviewed Final Anesthetic Review Family History of Problems with Anesthesia: No History of Problems with Anesthesia: No NPO: Yes ASA Class: III Final Preanesthetic Review: No Changes in Pt Med Stat, Meds/Allgs Chart Revie wed, Consent Obtained/Reviewed and Anes Risks/Benef Reviewed Patient Risk: Intermediate Procedure Risk: Intermediate Anesthetic Plan Anesthetic Plan: MAC: and Agree w/ Assess. and Plan Disposition: Standard PACU
--- NOTE | 2022-10-23 13:41 | W.PM.OPN ---
Operative Note Operative Note Date of Service: 10/23/22 Narrative: PreOperative Diagnosis: Overactive bladder with urinary urgency and frequency Post Operative Diagnosis: Overactive bladder with urinary urgency and frequency Procedure: 1.) Placement of InterStim lead trial Surgeon: Dr Zachary Pugh Anesthesia: sedation Indications for procedure: urinary urgency and fecal incontinence Procedure: After informed consent was verified the patient was brought to the operating room. Sedation anesthesia was administered per protocol. The patient was placed in a prone position and prepped and draped in a sterile fashion. Safety pause time-out was performed. Using the C-arm and Finder needle the S3 foramen exiting from the pelvic arch was marked horizontally from left to right as our horizontal marker. The medial aspect of foramen were highlighted and aligned with the finder needle in a vertical fashion. The intersection of these 2 lines marked the entry point on the skin of the medial aspect of the right S3 foramen. Local anesthetic was infiltrated along the vertical aspect. The finding needle was inserted into the targeted foramen. Difficult placement. S4 found on right side. The vibrator equipment tester was attached and assessed for placement with Trent response and toe movement. The initial response was predominantly Trent with minimal toe. I was not happy with lead responses. We targetted the sme forum on the left side. The initial response was predominantly Trent with minimal toe. The internal introducer from the needle was removed and the control lead placed. The finder needle was removed and the dilator sheath introduced. Under fluoroscopic guidance the dilator sheath was advanced till the marker was seen mid point through the sacral bone on the lateral image. The internal cannula from the dilator was removed. The guidewire was removed. The active lead was then introduced through the dilator sheath and advanced so that the 3rd and 4th marked electrodes crossed the internal boundary line of the sacrum. The testing electrode was then hooked up to each of the wire electrodes 0 through 3 and good Trent and no toe response is was seen at low amplitude 1.3 amps. This confirmed the clinically relevant position of the live wire. ) with less response than 1,2,3. Under live fluoroscopy the introducer sheath was removed deploying the tines of the wire ensuring that the live wire remained in the previously described position. The tunneling device was then used to bridge the distance between the sacral vertical incision and the desired location of the battery pocket. The live wire was placed through the tunneling device and brought out into the battery pocket. The sharp tunneling device tip was then exchanged for a blunt-tip and the tunneling device lead from our target battery pocket superiorly to in outlet point. The vibrator equipment tester was then placed in the retrieval device and brought back to out target battery pocket. The live lead was then attached to vibrator equipment tester. A loop of vibrator equipment tester was then created and using a Vicryl suture attached to the connector in order to allow easier location for final placement of battery and to minimize tension. Interrupted 3-0 Vicryl sutures were used to close the defect spaces and bring skin edges together. Running 4-0 Monocryl sutures were used to appose skin edges. Incisions were dressed using skin glue. The vibrator equipment tester was attached using a drain suture. Patient tolerated procedure well was extubated in operating room transferred in stable condition to the recovery area. CPT full device replacement 22442
[2022-10-23 13:51] VITALS: BP 103/53; PULSE 59; RESP 16; TEMP 36.5; O2SAT 93
[2022-10-23 13:58] LABS: Glucose, Whole Blood 148 mg/dL (60-115)
[2022-10-23 14:06] VITALS: BP 114/62; PULSE 58; RESP 14; O2SAT 97
[2022-10-23 14:21] VITALS: BP 131/62; PULSE 63; RESP 16; TEMP 36.3; O2SAT 98
== END 2022-10-23 14:42 | disposition home or self-care (01) ==
PROVIDERS: PCP Physician Assistant Medical; Visit Provider Urology
PROC: (CPT 64561; principal; 2022-10-23 12:10)
DX: N32.81 Overactive bladder (principal); R39.15 Urgency of urination; R35.0 Frequency of micturition; R33.9 Retention of urine, unspecified; R15.9 Full incontinence of feces; I10 Essential (primary) hypertension; E11.9 Type 2 diabetes mellitus without complications; I25.10 Atherosclerotic heart disease of native coronary artery without angina pectoris; Z95.5 Presence of coronary angioplasty implant and graft; Z79.84 Long term (current) use of oral hypoglycemic drugs; Z79.899 Other long term (current) drug therapy; Z87.891 Personal history of nicotine dependence
CPT/HCPCS: 64561; 82947; 93005; C1778; C1883; J0690; J2250; J2795; J3010

== ENCOUNTER → 2022-10-23 09:16 | Outpatient (BNV) | payer OTHER, SELFPAY | PROVIDERS: PCP Physician Assistant Medical; Visit Provider Urology | DX: N32.81 Overactive bladder (principal); R39.15 Urgency of urination; R35.0 Frequency of micturition | CPT/HCPCS: 64561 ==

== ENCOUNTER 2022-11-13 06:08 | Day surgery (SDC) | payer OTHER, SELFPAY ==
--- NOTE | 2022-11-10 08:58 | P.CONAN_ITS ---
Documented by User: Alee Huggins NP 11/10/22 08:59 HPI - Anesthesia Eval Consult details Narrative: 62yo M for Interstim Lead Test-Stage 2 s/p stage 1 10/2022 with MAC PMFSH Active Problems Active Problems: All Active Problems (Updated 10/18/22 @ 15:41 by Lisset Montague RN) Eosinophilic colitis (Acute) Food allergy (Acute) Malnutrition (Acute) Incontinence of feces (Acute) Erectile dysfunction associated with type 2 diabetes mellitus (Acute) Diabetic neuropathy associated with diabetes mellitus due to underlying condition (Acute) Urinary retention with incomplete bladder emptying (Acute) Diabetes (Acute) HTN (hypertension) (Acute) Past Medical History Medical History CAD (coronary artery disease) Diabetes HTN (hypertension) Family History Family History Father Colon cancer Family history of problems with anesthesia: No Surgical History Surgical History Hx of discectomy Hx of colonoscopy History of right coronary artery stent placement History of Problems with Anesthesia: No Social History Social History Patient Tobacco Use Status: Former Tobacco user Second Hand Smoke Exposure: No Use of substances other than those prescribed or required for medical reasons: Yes Are you DNR?: No Advance Directives: No Advance Directives Information Provided: Yes Advance Directives on File: No Meds Allergies Allergy/AdvReac Type Severity Reaction Status Date / Time No Known Allergies Allergy Verified 10/23/22 09:31 Home Medications Medication Instructions Recorded Confirmed Last Taken Type sitagliptin phosphate 25 mg tablet 25 mg PO DAILY 09/27/21 10/23/22 Unknown History ([place]) atorvastatin 40 mg tablet 40 mg PO DAILY 04/10/22 10/23/22 Unknown History flash glucose sensor (FreeStyle #1 ea 04/10/22 06/28/22 Unknown History Ella 2 Sensor kit) lisinopril 30 mg tablet 30 mg PO DAILY 04/10/22 10/23/22 Unknown History metoprolol tartrate 25 mg tablet 25 mg PO DAILY 04/10/22 10/23/22 10/23/22 History lorazepam 0.5 mg tablet (Ativan) 0.5 mg PO BEDTIME PRN Anxiety 09/01/22 10/23/22 Unknown History metformin 500 mg tablet 500 mg PO DAILY 09/01/22 10/23/22 Unknown History dextroamphetamine-amphetamine 5 mg 1 tab PO DAILY 10/11/22 10/23/22 Unknown History tablet Exam Exam Date and Time: November 10, 2022 0858 Pertinent Lab Results Pertinent Lab Results: Laboratory Tests 04/10/22 12:11 WBC 6.0 Hgb 14.2 Hct 42.8 Plt Count 232 Sodium 137 Potassium 4.2 Chloride 104 Carbon Dioxide 23 BUN 14 Creatinine 0.84 Narrative Narrative: EKG 10/2022 Vent. Rate : 056 BPM Atrial Rate : 056 BPM P-R Int : 194 ms QRS Dur : 088 ms QT Int : 456 ms P-R-T Axes : 048 051 051 degrees QTc Int : 440 ms Sinus bradycardia Otherwise normal ECG No previous ECGs available Assessment and Plan Assessment Anesthesia Assessment: Chart Reviewed Final Anesthetic Review Family History of Problems with Anesthesia: No History of Problems with Anesthesia: No Documented by User: Joaquin Hawthorne MD 11/13/22 08:01 [facility] Past Medical History Medical History CAD (coronary artery disease) Diabetes HTN (hypertension) Family History Family History Father Colon cancer Surgical History Surgical History Hx of discectomy Hx of colonoscopy History of right coronary artery stent placement Social History Social History Patient Tobacco Use Status: Former Tobacco user Second Hand Smoke Exposure: No Use of substances other than those prescribed or required for medical reasons: Yes Are you DNR?: No Advance Directives: No Advance Directives Information Provided: Yes Advance Directives on File: No Meds Allergies Allergy/AdvReac Type Severity Reaction Status Date / Time No Known Allergies Allergy Verified 10/23/22 09:31 Home Medications Medication Instructions Recorded Confirmed Last Taken Type sitagliptin phosphate 25 mg tablet 25 mg PO DAILY 09/27/21 10/23/22 Unknown History ([place]) atorvastatin 40 mg tablet 40 mg PO DAILY 04/10/22 10/23/22 Unknown History flash glucose sensor (FreeStyle #1 ea 04/10/22 06/28/22 Unknown History Ella 2 Sensor kit) lisinopril 30 mg tablet 30 mg PO DAILY 04/10/22 10/23/22 Unknown History metoprolol tartrate 25 mg tablet 25 mg PO DAILY 04/10/22 10/23/22 10/23/22 History lorazepam 0.5 mg tablet (Ativan) 0.5 mg PO BEDTIME PRN Anxiety 09/01/22 10/23/22 Unknown History metformin 500 mg tablet 500 mg PO DAILY 09/01/22 10/23/22 Unknown History dextroamphetamine-amphetamine 5 mg 1 tab PO DAILY 10/11/22 10/23/22 Unknown History tablet Exam Airway Mallampati Class: I TM Dist: >3cm Neck ROM: Full Loose/Missing/Broken Teeth: No Heart: ok Lungs: ok Assessment and Plan Assessment Anesthesia Assessment: Anesthesia Plan Discussed Final Anesthetic Review NPO: Yes ASA Class: III Final Preanesthetic Review: No Changes in Pt Med Stat, Meds/Allgs Chart Reviewed, Consent Obtained/Reviewed and Anes Risks/Benef Reviewed Patient Risk: Intermediate Procedure Risk: Intermediate Anesthetic Plan Anesthetic Plan: GA and Agree w/ Assess. and Plan Disposition: Standard PACU
[2022-11-13] VITALS (10 sets, daily range): BP systolic 102–141; BP diastolic 46–70; PULSE 56–65; RESP 16–20; TEMP 36.2–36.7; O2SAT 93–96; BMI 27.8
[2022-11-13 06:49] LABS: Glucose, Whole Blood 184 mg/dL (60-115)
[2022-11-13] MEDS: Lactated Ringers 1,000 ML 100 ML IVCONT (06:53)
--- NOTE | 2022-11-13 07:36 | MHC.SHP ---
Pre-Procedural Eval Section A Date of Service: 11/13/22 The patient is an INPATIENT: No Changes since office visit: No Cold of Flu in the past 2 weeks, No New Medical Problems, No Changes in Medication and No Patient answered all questions The History & Physical has been completed within 30 days and I have reviewed it.: Yes Section B Chief Complaint: Full incontinence of feces Details of Present Illness: here for phase 2 of interstim placement - good success with phase 1 leads Present Medications: see Short Stay Collaborative assessment Medical History: Significant History History of Previous Operations: Relevant previous surgery/procedure and date(s) Allergies: Allergies Allergy/AdvReac Type Severity Reaction Status Date / Time No Known Allergies Allergy Verified 10/23/22 09:31 Review of Systems Sugical H&P ROS: Negative: Constitution, Cardiovascular, Respiratory, Neurological, Psychiatric, Hem-Onc, Allergic/Immunologic, Gastrointestinal, Genitourinary, Musculoskeletal, Integumentary, Endocrine and Eyes/Ears/Nose/Throat Exam Surgical H&P Exam: Normal: HEENT, Normal: Heart, Normal: Lungs, Normal: Extremities, Normal: Abdomen, Normal: Skin and Normal: Neurological Plan Diagnosis/Plan: Unchanged (interstim phase 2 generator placement) I have reviewed the history and physical and performed a pertinent physical examination on my patient. No changes have occurred unless specified. Time Spent With Patient Time: Total time managing care of this patient today ____ minutes.
--- NOTE | 2022-11-13 08:31 | P.OP_ITS ---
Operative Note Operative Note Date of Service: 11/13/22 Narrative: PreOperative Diagnosis:?? Rectal incontinence with overactive bladder Post Operative Diagnosis:? Rectal incontinence with overactive bladder Procedure: 1) Placement of InterStim generator 2) Generator Programming Surgeon: Dr Zachary Pugh Anesthesia:? sedation Indications for procedure: Trial lead had been placed. Good response with improved social control. Here for generator placement Procedure: After informed consent was verified the patient was brought to the operating gayathri m.? Sedation anesthesia was administered per protocol. The patient was placed in a prone position and prepped and draped in a sterile fashion.? Safety pause time-out was performed. Temporary lead was divided Local anesthetic was infiltrated around the initial battery pocket incision on the right lateral superior buttock.? Incision was made and taken down through the skin until the wire connector was encountered. This was removed from the pocket. The temporary lead was removed from the connector. The pocket was expanded using sharp and blunt dissection to accommodate the generator. The generator was connected and placed in the pocket after the pocket was irrigated. Testing and programming was performed to confirm generator activity and lead impedance. Incision was closed with running 3-0 Vicryl sutures Skin was closed with running 4-0 Monocryl and dressing applied. CPT? generator placement? 36067, [id number]
[2022-11-13] MEDS: oxyCODONE HCl Immed Release 5 MG TABLET PO (08:50)
[2022-11-13] MEDS: Acetaminophen 325 MG TABLET 650 MG PO (08:50)
[2022-11-13] MEDS: fentaNYL citrate/PF 100 MCG/2 ML VIAL 50 MCG IVPUSH ×2 (08:50→08:55)
== END 2022-11-13 11:05 | disposition home or self-care (01) ==
PROVIDERS: PCP Physician Assistant Medical; Visit Provider Urology
PROC: (CPT 64590; principal; 2022-11-13 07:30)
DX: N32.81 Overactive bladder (principal); R15.9 Full incontinence of feces; R33.9 Retention of urine, unspecified; I10 Essential (primary) hypertension; E11.9 Type 2 diabetes mellitus without complications; I25.10 Atherosclerotic heart disease of native coronary artery without angina pectoris; Z95.5 Presence of coronary angioplasty implant and graft; Z79.84 Long term (current) use of oral hypoglycemic drugs; Z79.899 Other long term (current) drug therapy; Z87.891 Personal history of nicotine dependence
CPT/HCPCS: 64590; 82947; C1767; C1787; J0690; J2795; J3010

== ENCOUNTER → 2022-11-13 06:08 | Outpatient (BNV) | payer OTHER, SELFPAY | PROVIDERS: PCP Physician Assistant Medical; Visit Provider Urology | DX: R15.9 Full incontinence of feces (principal); N32.81 Overactive bladder; Z96.82 Presence of neurostimulator | CPT/HCPCS: 64590 ==

== ENCOUNTER 2022-12-08 09:12 | Outpatient (AMB) | payer OTHER, SELFPAY ==
--- NOTE | 2022-12-08 09:16 | MHC.OFFVIS ---
Intake Intake Visit Reasons: 2 month follow up Intake Note: Patient is Present for Follow Up pvr Urology Medication: Sildenafil, Tadalafil Antibiotic Allergies: None Blood Thinners: None Pharmacy: [facility] PVR: 0 Allergies No Known Allergies Allergy (Verified 12/08/22 09:19) Medication List - Last Reconciled 12/08/22 by Zachary Pugh MD atorvastatin 40 mg PO DAILY dextroamphetamine-amphetamine 5 mg 1 tab PO DAILY flash glucose sensor (FreeStyle Ella 2 Sensor kit) As directed hydrocodone-acetaminophen 5-325 mg 1 tab PO Q4H PRN 7 days lisinopril 30 mg PO DAILY lorazepam (Ativan) 0.5 mg PO BEDTIME PRN mesalamine ER 0.375 grams PO QAM metformin 500 mg PO DAILY metoprolol tartrate 25 mg PO DAILY oxycodone-acetaminophen 5-325 mg 1 tab PO Q4H PRN 7 days sildenafil 100 mg PO ONCE PRN 30 days sitagliptin phosphate (Januvia) 25 mg PO DAILY sulfamethoxazole-trimethoprim 400-80 mg (Bactrim) 1 tab PO DAILY 5 days sulfamethoxazole-trimethoprim 400-80 mg (Bactrim) 1 tab PO DAILY 5 days tadalafil 10 mg PO DAILY 90 days HPI HPI Comments History of Present Illness Details Inocente is a pleasant male. He is a patient of Dr. Chavez. He is seen for the following urologic conditions - lower urinary tract symptoms - erectile dysfunction in setting of diabetes Good response to InterStim Has rectal sensation and no more surprises Follow-up with GI Continue good response to daily 10 mg tadalafil Will refill Six month follow-up Erectile Dysfunction in setting of diabetes Current therapy daily 10 mg tadalafil Effective response with medication and weaning of duloxetine Prior therapy on demand sildenafil Lower urinary tract symptoms Initial presentation with urinary retention background diabetes Past voiding trial after spinal intervention Had episode of spinal stenosis with urinary retention [address] Chen Has had significant return of urinary function InterStim placement 06/25 PFSH Medical History CAD (coronary artery disease) Diabetes HTN (hypertension) Surgical History Hx of discectomy Hx of colonoscopy History of right coronary artery stent placement Family History Father Colon cancer Social History Patient Tobacco Use Status: Former Tobacco user Second Hand Smoke Exposure: No Review of Systems Const Denies chills and Denies fever(s) Card Reports no additional complaints and Denies syncope Resp Denies cough GI Denies abdominal pain and Denies heartburn Reports as per HPI and Denies change in libido Neuro Denies syncope Psych Denies change in libido Endo Denies change in libido Physical Exam Const General: cooperative, healthy appearing, comfortable and no acute distress Orientation/consciousness: patient oriented x3 HEENT Face and sinus: Yes normal facial exam Mouth: moist mucous membranes Neck Neck: Yes normal visual inspection, Yes full ROM and Yes trachea midline Chest Chest palpation & inspection: normal inspection of the chest Resp Effort & Inspection: normal respiratory effort, able to speak in complete sentences and no respiratory distress GI Inspection: Yes normal to inspection Back/Spine/Pelvis Cervical Spine: normal cervical lordosis Thoracic/Lumbar Spine: thoracic and lumbar spine normal to inspection Skin General skin exam: no rashes or lesions noted Neuro General: patient oriented x3, gait normal, tone normal and moves all extremities Extrem General: Yes normal to inspection and Yes capillary refill normal Office Procedures Post Void Residual Post Residual Void Post Void Residual (PVR): 0 [id number] Void Residual by ultrasound Results AMB Urinalysis, Automated UA Leukoctes 0 [place]/uL Last Edit by JIMENA Hoff on 12/08/22 09:29 UA Nitrite Negative Last Edit by JIMENA Hoff on 12/08/22 09:29 UA Urobilinogen 0.2 mg/dL Last Edit by JIMENA Hoff on 12/08/22 09:29 UA Protein 0 mg/dL Last Edit by JIMENA Hoff on 12/08/22 09:29 UA pH 6.0 Last Edit by JIMENA Hoff on 12/08/22 09:29 UA Blood 0 Mark/uL Last Edit by JIMENA Hoff on 12/08/22 09:29 UA Specific [place] 1.020 Last Edit by JIMENA Hoff on 12/08/22 09:29 UA Ketone Negative Last Edit by JIMENA Hoff on 12/08/22 09:29 UA Bilirubin 0 mg/dL Last Edit by BRYON HoffA on 12/08/22 09:29 UA Glucose 0 mg/dL Last Edit by JIMENA Hoff on 12/08/22 09:29 Results Reviewed Results Reviewed: Laboratory Last Values Urine pH (Auto) 6.0 12/08/22 09:18 Specific [place] (Auto) 1.020 12/08/22 09:18 Urine Protein (Auto) 0 mg/dL 12/08/22 09:18 Glucose (UA)(Auto) 0 mg/dL 12/08/22 09:18 Urine Ketones (Auto) Negative 12/08/22 09:18 Urine Blood (Auto) 0 Mark/uL 12/08/22 09:18 Urine Nitrite (Auto) Negative 12/08/22 09:18 Urine Bilirubin (Auto) 0 mg/dL 12/08/22 09:18 Urine Urobilinogen (Auto) 0.2 mg/dL 12/08/22 09:18 Leukocyte Esterase (Auto) 0 [place]/uL 12/08/22 09:18 Assessment & Plan Assessment & Plan (1) Incontinence of feces: Code(s): R15.9 - Full incontinence of feces Qualifiers: Fecal incontinence type: fecal urgency Qualified Code(s): R15.9 - Full incontinence of feces; R15.2 - Fecal urgency (2) Erectile dysfunction associated with type 2 diabetes mellitus: Code(s): E11.69 - Type 2 diabetes mellitus with other specified complication; N52.1 - Erectile dysfunction due to diseases classified elsewhere Plan 6 month follow-up tele Orders: Orders AMB Post Void Residual by ultrasound Today R33.9 - Retention of urine, unspecified AMB Urinalysis Automated Today Z13.9 - Encounter for screening, unspecified Patient Instructions: Imaging studies, laboratory and physical exam results were discussed and reviewed in detail. No major barriers to patient understanding were identified. An opportunity to ask questions regarding the treatment plan was provided. All questions were answered. The patient expressed understanding and agreement with the above treatment plan. The patient is aware they should contact our office by phone for worsening of their current condition or the appearance of new urologic symptoms. Compliance is encouraged with any medications and followup testing that is ordered. It is a privilege to participate in the urologic care of your patient. If you have any questions or concerns regarding treatment for the above conditions, or other urologic issues, please do not hesitate to contact me. The office telephone contact is [phone]. This note is constructed using voice recognition software. While every effort has been made to ensure accuracy heating and air conditioning mechanic errors may have been included. Yours sincerely, Dr Zachary Pugh MD, [facility] - Urology Providers of Expert, Compassionate Care for the Genitourinary System Coding Level of Care Code Est Pt Level 3 (34185) Diagnoses Incontinence of feces with fecal urgency R15.9; R15.2 Fecal incontinence type: fecal urgency Erectile dysfunction associated with type 2 diabetes mellitus E11.69; N52.1 CPT Codes Post Residual Void - PVR CPT Code: 32140-Efgk Void Residual by ultrasound ([id number])
== END 2022-12-08 09:47 | disposition home or self-care (01) ==
PROVIDERS: PCP Physician Assistant Medical; Visit Provider Urology
DX: R15.9 Full incontinence of feces (principal); R15.2 Fecal urgency; E11.69 Type 2 diabetes mellitus with other specified complication; N52.1 Erectile dysfunction due to diseases classified elsewhere; Z13.9 Encounter for screening, unspecified
CPT/HCPCS: 99213

== ENCOUNTER → 2022-12-08 09:12 | Outpatient (BNVA) | payer OTHER, SELFPAY | PROVIDERS: PCP Physician Assistant Medical; Visit Provider Urology | DX: E11.69 Type 2 diabetes mellitus with other specified complication (principal); N52.1 Erectile dysfunction due to diseases classified elsewhere; R15.9 Full incontinence of feces; R15.2 Fecal urgency | CPT/HCPCS: 51798; 81003; 99212 ==

== ENCOUNTER 2023-01-01 09:07 | Outpatient (AMB) | payer OTHER, SELFPAY ==
--- NOTE | 2023-01-01 09:10 | A.OFFVIS_ITS ---
Intake Vital Signs 01/01/23 09:12 Height 6 ft 1 in Weight 216 lb 0.848 oz BMI 28.5 BP 142/70 H Blood Pressure Location Lt brachial Position Sitting Pulse 69 Intake Visit Reasons: 2 month fu Intake Note: Inocente presents in the office as a 2 month follow up. CC: He states that he is not having any new concerns just the ongoing concerns he has been dealing with. He is trying to get colitis into remission and it does not seem to be happening. Allergies No Known Allergies Allergy (Verified 01/01/23 09:12) HPI 2 month fu HPI Details 62 yr old m here for f/u for eosinophili c colitis RECAP: He decribes problems since last when he had numbness from torso down along with bladder retention he had bladder drained and was sent home since then he has minimal feeling from waist to the feet he did get spinal surgery at July 2021 and had release of nerves from the spine, and relieved pain and neuropathy but the numbness persisted --he was told things may incrementally improve or not with time constant feeling of wanting to go to the bathroom he has been told by Dr oliver he has overlflow incontinence, he soils himself few times a week, he has no feeling of it no blood in the stool he has nausea all the time he has some pelvic fullness he can empty bladder and urinate but he has to push he had colonoscopy aged 53 and aged 46 ---may have had some polyps Colonoscopy: granular mucosa, Path with increased eosinophils RAST studies were neg lactoferrin was neg He had spinal stim placed by Dr Pugh INTERIM: He feels the stim has helped and he gets warning now he still has looser stools and has to go several times a day sometimes can be explosive and sometimes like bre hasn; had normal stools for long time stress is a major factor that makes it worse he has fatigue, poor focus sugars have been good he loves milk and drinks a lot of it EXAM: GENERAL: The patient is well developed and nontoxic. VITAL SIGNS:see workflow HEENT: Nonicteric sclerae, PERRLA, EOMI. Oropharynx clear. Moist mucous membranes. Conjunctivae appear well perfused. No thyroid mass. CHEST: Chest wall is nontender. HEART: Regular rate and rhythm without murmurs. LUNGS: Clear to auscultation bilaterally. ABDOMEN: Soft, positive bowel sounds, nontender, no organomegaly.no flank tenderness SKIN: No rash, no excessive bruising, petechiae, or purpura. NEUROLOGIC: Cranial nerves II-XII intact without motor/sensory deficit. A/P: 1/ Fecal incontinence secondary to spina l cord injury and possible diabetic autonomic neuropathy, s/p spinal stimulator 2/ eosinophilic colitis, 3/ malaise likely 2/2 opiates, maybe due to colitis Plan: 1/ trial of budeosnide, and he will watc h sugars closely, if getting too high let me know 2/ EGD to r/o upper GI cause of sx along with sigmoidoscopy for bx 3/ trial of dairy avoidance for 1 week a nd see if helps --try this before commencing budesonide [facility] Medical History CAD (coronary artery disease) Diabetes HTN (hypertension) Surgical History S/P placement of nerve stimulator Hx of discectomy Hx of colonoscopy History of right coronary artery stent placement Family History Father Colon cancer Social History Patient Tobacco Use Status: Former Tobacco user Second Hand Smoke Exposure: No Physical Exam Vital Signs: Last Vital Signs Pulse 69 01/01/23 09:12 BP 142/70 H 01/01/23 09:12 BMI result Body Mass Index 28.5 Assessment & Plan Assessment & Plan (1) Incontinence of feces: Code(s): R15.9 - Full incontinence of feces Qualifiers: Fecal incontinence type: fecal urgency Qualified Code(s): R15.9 - Full incontinence of feces; R15.2 - Fecal urgency (2) Eosinophilic colitis: Code(s): K52.82 - Eosinophilic colitis Medications: New budesonide ER 9 mg (3 x 3 mg) PO DAILY 90 ea 0RF Coding Level of Care Code Est Pt Level 4 (82154) Diagnoses Incontinence of feces with fecal urgency R15.9; R15.2 Fecal incontinence type: fecal urgency Eosinophilic colitis K52.82
[2023-01-01 09:12] VITALS: BP 142/70; PULSE 69; BMI 28.5
== END 2023-01-01 09:41 | disposition home or self-care (01) ==
PROVIDERS: PCP Physician Assistant Medical; Visit Provider Internal Medicine Gastroenterology
DX: R15.9 Full incontinence of feces (principal); R15.2 Fecal urgency; K52.82 Eosinophilic colitis
CPT/HCPCS: 99214

== ENCOUNTER → 2023-01-01 09:07 | Outpatient (BNVA) | payer OTHER, SELFPAY | PROVIDERS: PCP Physician Assistant Medical; Visit Provider Internal Medicine Gastroenterology | DX: R15.9 Full incontinence of feces (principal); R15.2 Fecal urgency; K52.82 Eosinophilic colitis | CPT/HCPCS: 99212 ==

== ENCOUNTER 2023-01-15 13:46 | Emergency (ER) | payer OTHER, SELFPAY ==
[2023-01-15 13:52] VITALS: BP 154/41; PULSE 70; RESP 18; TEMP 36.2; O2SAT 96; BMI 27.8
--- NOTE | 2023-01-15 13:52 | ED_ITS ---
HPI - General Adult General Chief complaint: GI Bleed Stated complaint: Black diarrhea Time Seen by Provider: 01/15/23 16:34 Source: patient Mode of arrival: ambulatory Limitations: no limitations History of Present Illness HPI narrative: 62 yold male with pmh of Ulcerative colitis presents to the ED for jet black diarrhea for the past two weeks. patient states diarrhea for one year and half, but black stool diarrhea the past two weeks. patient denies any dizziness, fever, chills, nausea, vomitting, flank pain, fever, chills, or rectal pain. Patient states no recent trauma to abdomen or rectal area. patient denies coughing up blood, vomitting blood, or drking alcohol. Patient admits to drinking large amounts of peptobismol lately. Patient denies any abdominal pain. Related Data Home Medications Medication Instructions Recorded Confirmed sitagliptin phosphate 25 mg tablet 25 mg PO DAILY 09/27/21 12/08/22 (Januvia) atorvastatin 40 mg tablet 40 mg PO DAILY 04/10/22 12/08/22 flash glucose sensor (FreeStyle #1 ea 04/10/22 12/08/22 Ella 2 Sensor kit) lisinopril 30 mg tablet 30 mg PO DAILY 04/10/22 12/08/22 metoprolol tartrate 25 mg tablet 25 mg PO DAILY 04/10/22 12/08/22 metformin 500 mg tablet 500 mg PO DAILY 09/01/22 12/08/22 dextroamphetamine-amphetamine ER 1 cap PO QAM 01/01/23 10 mg 24hr capsule,extend release hydrocodone 5 mg-acetaminophen 325 1 tab PO Q4H PRN pain 01/01/23 mg tablet Previous Rx's Medication Instructions Recorded sildenafil 100 mg tablet 100 mg PO ONCE PRN sexual activity 03/31/22 30 days #30 tabs tadalafil 10 mg tablet 10 mg PO DAILY sexual activity 90 12/08/22 days #90 tabs budesonide 3 mg 9 mg (3 x 3 mg) PO DAILY 90 days 01/15/23 capsule,delayed,extended release #270 ea Allergies Allergy/AdvReac Type Severity Reaction Status Date / Time No Known Allergies Allergy Verified 01/01/23 09:12 Review of Systems 2 Review of Systems: rectal bleeding Yes all other systems are reviewed and are negative PMFSH Past Medical History Medical History CAD (coronary artery disease) Diabetes HTN (hypertension) Surgical History S/P placement of nerve stimulator Hx of discectomy Hx of colonoscopy History of right coronary artery stent placement Family History Family History Father Colon cancer Social History Social History Patient Tobacco Use Status: Former Tobacco user Second Hand Smoke Exposure: No Advance Directives: No Advance Directives Information Provided: Yes Physical Exam ED Vital Signs: Vital Signs - 24 hr 01/15/23 13:52 Temperature 97.1 F Pulse Rate 70 Respiratory Rate 18 Blood Pressure 154/41 H Pulse Oximetry 96 Oxygen Delivery Method Room Air BMI result Body Mass Index 27.8 Const General: cooperative, healthy appearing, comfortable, no acute distress, well developed, alert, awake and Physically active Orientation/consciousness: oriented to person, oriented to place, oriented to time and patient oriented x3 HENMT Head: Yes normal to inspection, Yes No palpable skull fracture present, Yes normocephalic, Yes atraumatic and No abrasion Eyes General: appearance normal, both eyes and all related structures Neck Neck: Yes normal visual inspection, Yes full ROM, Yes no lymphadenopathy, Yes no meningeal signs, Yes trachea midline, Yes supple, No anterior neck swelling and No tender Chest Chest palpation & inspection: normal inspection of the chest and normal palpation of entire chest wall Resp Effort & Inspection: normal respiratory effort and able to speak in complete sentences Auscultation: clear to auscultation bilaterally Cardio Jugular venous distension: no JVD Heart sounds: S1 normal heart sound present and S2 normal heart sound present GI Other: REctal exam negative for maura blood, bright red stool, or melena Inspection: Yes normal to inspection Palpation (GI): Soft to palpation, not firm, nontender, no guarding and not rigid General: No CVA tenderness and Yes no CVA tenderness Back/Spine/Pelvis Back: no CVA tenderness, No CVA tenderness and No back tenderness Skin General skin exam: no rashes or lesions noted, elasticity normal and turgor normal Neuro General: oriented to person, oriented to place, oriented to time, patient oriented x3, gait normal, tone normal, moves all extremities, Normal light touch and pain sensation, no meningeal signs, no focal motor deficits, CN's II-XI intact bilaterally and normal sensation to monofilament Extrem General: Yes normal to inspection and Yes full ROM Psych Appearance: grossly normal, well kempt and not disheveled Course Course Course Narrative: RME performed by Joycelyn Ferrer PA-C. Patient is a 62 year old assigned male at presenting to the emergency department with black diarrhea for the last 2 weeks. Labs ordered. Patient placed back in the waiting room pending room availability and results. Medical Decision Making Medical Decision Making [facility] Narrative: 62 yold male with pmh of ulcerative colitis presents to the ED for black stool for the past two weeks. patient came to the ED to be evaulated as recommended by gastroentertologist clinic. patient states no weakness, dizziness, vomitting blood, coughing blood, alcohol drinking, abdominal pain, fever, or chills. patient takes daily peptobismol. Patietn complaints with mesalamine. 6:37pm: patient's repeat hemoglobin hematocrit stable/normal. Stool guaiac came back negative. Rectal exam did not show any obvious black stool. Patient drinking peptobismol daily which can cause black stool. abdomen soft nontender and benign on re-evaluation. Patient will follow-up with his triple air valve tester. Not suspecting GI bleed, not suspecting ulcerative colitis exacerbation, abdominal abscess, abdominal perforation, or vivienne weiz tear. No need for CT abdomen and pelvis. Differential Diagnosis Differential Diagnoses: The differential diagnosis associated with the presentation includes ( GI bleed, also colitis as abrasion, abdominal abscess, abdominal perforation,) Admission/Observation Consideration of admission/observation: Escalation of care including admission/observation considered Lab Data [facility] Lab Attestation statement: I reviewed the patient's lab results. 01/15/23 17:10 01/15/23 14:02 Labs: Lab Results 01/15/23 01/15/23 01/15/23 Range/Units 14:02 17:05 17:10 WBC 6.3 6.9 (4.8-10.8) X10*3/uL RBC 5.53 5.41 (4.60-5.80) X10*6/uL Hgb 15.2 15.0 (14.0-18.0) g/dl Hct 45.8 46.4 (42.0-52.0) % MCV 82.8 85.8 (80.0-98.0) fL MCH 27.5 27.7 (27.0-33.0) pg MCHC 33.2 32.3 (31.0-36.0) g/dl RDW 13.0 13.2 (11.0-16.0) % Plt Count 217 218 (160-400) X10*3/uL MPV 8.9 L 9.1 L (9.4-12.4) fL Immature Gran % (Auto) 0.3 0.3 (0.0-0.4) % Neut % (Auto) 60.9 55.5 (45-73) % Lymph % (Auto) 27.7 30.4 (20-40) % [place] % (Auto) 8.8 10.9 (2-11) % Eos % (Auto) 1.8 2.3 (0-4) % Baso % (Auto) 0.5 0.6 (0-2) % Lymph # (Auto) 1.7 2.1 (1.2-4.9) X10*3/uL [place] # (Auto) 0.6 0.8 (0.1-1.2) X10*3/uL Eos # (Auto) 0.1 0.2 (0.0-0.4) X10*3/uL Baso # (Auto) 0.0 0.0 (0.0-0.2) X10*3/uL Abs Immat Gran (auto) 0.02 0.02 (0.00-0.03) X10*3/uL Absolute Neuts (auto) 3.8 3.8 (2.0-8.3) x10*3/uL Absolute Nucleated RBC 0.000 0.000 (0.0-0.012) X10*3/uL Nucleated RBC % (auto) 0.0 0.0 (0.0-0.2) /100WBC PT 11.3 (11.1-13.3) SEC INR 0.9 (0.9-1.1) APTT 34.0 (26.0-36.4) SEC Sodium 137 (135-145) mmol/L Potassium 4.0 (3.3-5.1) mmol/L Chloride 100 (96-108) mmol/L Carbon Dioxide 29 (22-29) mmol/L Anion Gap 12 (12-20) BUN 13 (9-16) mg/dL Creatinine 0.86 (0.5-1.4) mg/dL Estim Creat Clear Calc 101.9 Estimated GFR > 60 Random Glucose 248 H (60-115) mg/dL Calcium 9.4 (8.4-10.2) mg/dL Magnesium 2.1 (1.6-2.6) mg/dL Total Bilirubin 0.7 (0.0-1.0) mg/dL AST 18 (5-37) U/L ALT 19 (0-40) U/L Alkaline Phosphatase 69 (39-117) U/L Total Protein 8.1 H (6.5-8.0) g/dL Albumin 4.5 (3.5-5.0) g/dL Urine Color Yellow Urine Appearance Clear Urine pH 6.0 (5.0-9.0) Ur Specific [place] 1.020 (1.005-1.025) Urine Protein Negative (Neg-Trace) mg/dL Urine Glucose (UA) Negative (Negative) mg/dL Urine Ketones Negative (Negative) mg/dL Urine Blood Negative (Negative) Urine Nitrite Negative (Negative) Ur Leukocyte Esterase Negative (Negative) Stool Occult Blood NEGATIVE (NEGATIVE) Blood Type O Positive Antibody Screen NEGATIVE External Record Review External record reviewed: Other (Prior ED visit) Tests considered The following testing was considered but not selected: CT abdomen Discharge Plan Discharge Clinical Impression: Normal exam Patient Disposition: Home, Self-Care Instructions: Normal Exam (ED) Additional Instructions: history, physical exam, and labs does not indicate GI bleed. Please follow-up with your primary care provider and triple air valve tester. Return to the ED immediately for any abdominal pain, nausea, vomiting, coughing up blood, vomiting blood, chest pain, shortness of breath, weakness, dizziness, rectal bleeding, black stool, rectal pain, fever, chills, or any other concerning symptoms. Prescriptions: No Action budesonide 3 mg capsule,delayed,extend.release 9 mg PO DAILY 90 Days Qty: 270 0RF (DME) FreeStyle Ella 2 Sensor Kit See Rx Instructions .ROUTE .MEDSUPPLY Qty: 1 Rx Instructions: As directed lisinopril 30 mg tablet 30 mg PO DAILY metoprolol tartrate 25 mg tablet 25 mg PO DAILY atorvastatin 40 mg tablet 40 mg PO DAILY metformin 500 mg tablet 500 mg PO DAILY tadalafil 10 mg tablet 10 mg PO DAILY 90 Days Qty: 90 1RF Januvia 25 mg tablet 25 mg PO DAILY sildenafil 100 mg tablet 100 mg PO ONCE PRN (Reason: sexual activity) 30 Days Qty: 30 0RF Rx Instructions: administer 60 minutes before intended activity dextroamphetamine-amphetamine 10 mg capsule,extended release 24hr 1 cap PO QAM hydrocodone-acetaminophen 5-325 mg tablet 1 tab PO Q4H PRN (Reason: pain) Rx Instructions: Partial Fill upon patient request. Interventions: ED Discharge Assessment Last Done: 01/15/23 18:57 Discharge Date/Time: 01/15/23 18:57 Print Language: Sami
[2023-01-15 14:06] LABS: MANUAL DIFF FLAG NO
[2023-01-15 14:10] LABS: Basophils Percent Auto 0.5 % (0-2); Eosinophils Absolute Auto 0.1 X10*3/uL (0.0-0.4); Eosinophils Percent Auto 1.8 % (0-4); Hematocrit 45.8 % (42.0-52.0); Hemoglobin 15.2 g/dl (14.0-18.0); Imm Gran Abs Auto 0.02 X10*3/uL (0.00-0.03); Imm Gran Pct Auto 0.3 % (0.0-0.4); Lymphocytes Absolute Auto 1.7 X10*3/uL (1.2-4.9); Lymphocytes Percent Auto 27.7 % (20-40); Mean Corpuscular HGB Conc 33.2 g/dl (31.0-36.0); Mean Corpuscular Hemoglobin 27.5 pg (27.0-33.0); Mean Corpuscular Volume 82.8 fL (80.0-98.0); Mean Platelet Volume 8.9 fL (9.4-12.4); Monocytes Absolute Auto 0.6 X10*3/uL (0.1-1.2); Monocytes Percent Auto 8.8 % (2-11); Neutrophils Absolute Auto 3.8 x10*3/uL (2.0-8.3); Neutrophils Percent Auto 60.9 % (45-73); Platelet Count 217 X10*3/uL (160-400); Red Blood Count 5.53 X10*6/uL (4.60-5.80); White Blood Count 6.3 X10*3/uL (4.8-10.8)
[2023-01-15 14:15] LABS: INTERNATIONAL NORM RATIO 0.9 (0.9-1.1); Prothrombin Time 11.3 SEC (11.1-13.3)
[2023-01-15 14:22] LABS: Alanine Aminotransferase 19 U/L (0-40); Albumin Level 4.5 g/dL (3.5-5.0); Alkaline Phosphatase 69 U/L (39-117); Anion Gap 12 (12-20); Aspartate Amino Transferase 18 U/L (5-37); Bilirubin Total 0.7 mg/dL (0.0-1.0); Blood Urea Nitrogen 13 mg/dL (9-16); Calcium 9.4 mg/dL (8.4-10.2); Carbon Dioxide 29 mmol/L (22-29); Chloride 100 mmol/L (96-108); Creatinine Clr Calc Pharmacy 101.9; Estimated Glomerular Filt Rate > 60; Glucose Random 248 mg/dL (60-115); Magnesium 2.1 mg/dL (1.6-2.6); Sodium 137 mmol/L (135-145); Total Protein 8.1 g/dL (6.5-8.0)
[2023-01-15 17:17] LABS: MANUAL DIFF FLAG NO
[2023-01-15 17:20] LABS: Basophils Percent Auto 0.6 % (0-2); Eosinophils Absolute Auto 0.2 X10*3/uL (0.0-0.4); Eosinophils Percent Auto 2.3 % (0-4); Hematocrit 46.4 % (42.0-52.0); Imm Gran Abs Auto 0.02 X10*3/uL (0.00-0.03); Imm Gran Pct Auto 0.3 % (0.0-0.4); Lymphocytes Absolute Auto 2.1 X10*3/uL (1.2-4.9); Lymphocytes Percent Auto 30.4 % (20-40); Mean Corpuscular HGB Conc 32.3 g/dl (31.0-36.0); Mean Corpuscular Hemoglobin 27.7 pg (27.0-33.0); Mean Corpuscular Volume 85.8 fL (80.0-98.0); Mean Platelet Volume 9.1 fL (9.4-12.4); Monocytes Absolute Auto 0.8 X10*3/uL (0.1-1.2); Monocytes Percent Auto 10.9 % (2-11); Neutrophils Absolute Auto 3.8 x10*3/uL (2.0-8.3); Neutrophils Percent Auto 55.5 % (45-73); Platelet Count 218 X10*3/uL (160-400); Red Blood Count 5.41 X10*6/uL (4.60-5.80); Red Cell Distribution Width 13.2 % (11.0-16.0); White Blood Count 6.9 X10*3/uL (4.8-10.8)
[2023-01-15 17:27] LABS: Appearance Urine Clear; Color Urine Yellow; Glucose Urine UA Negative (Negative); Leukocyte Esterase Urine Negative (Negative); Nitrite Urine Negative (Negative); Urine Blood Negative (Negative); Urine Ketones Negative (Negative); Urine Protein Negative (Neg-Trace)
[2023-01-15 17:29] LABS: OBS Int Ctl Valid YES; OBS1 NEGATIVE (NEGATIVE)
[2023-01-15 18:56] VITALS: BP 133/70; PULSE 76; RESP 19; O2SAT 98
== END 2023-01-15 18:57 | disposition home or self-care (01) ==
PROVIDERS: Physician Assistant; Physician Assistant Medical; Emergency Provider Internal Medicine
DX: R19.7 Diarrhea, unspecified (principal); I25.10 Atherosclerotic heart disease of native coronary artery without angina pectoris; I10 Essential (primary) hypertension; E11.9 Type 2 diabetes mellitus without complications; Z79.899 Other long term (current) drug therapy
CPT/HCPCS: 36415; 80053; 81003; 82272; 83735; 85025; 85610; 85730; 86850; 86900; 86901; 99283; 99284

== ENCOUNTER 2023-06-12 13:38 | Outpatient (AMB) | payer OTHER, SELFPAY ==
--- NOTE | 2023-06-12 13:39 | MHC.OFFVIS ---
Intake Intake Visit Reasons: 6m follow up(Confirmed) Intake Note: Patient is Present for Telephone Follow Up For Urology Med:Sildenafil, Tadalafil Antibiotic Allergy:None Blood Thinner:None Allergies No Known Allergies Allergy (Verified 01/01/23 09:12) Medication List - Last Reconciled 06/12/23 by Zachary Pugh MD atorvastatin 40 mg PO DAILY budesonide DR-ER 9 mg (3 x 3 mg) PO DAILY 90 days dextroamphetamine-amphetamine 10 mg ER 1 cap PO QAM flash glucose sensor (FreeStyle Ella 2 Sensor kit) As directed hydrocodone-acetaminophen 5-325 mg 1 tab PO Q4H PRN lisinopril 30 mg PO DAILY metformin 500 mg PO DAILY metoprolol tartrate 25 mg PO DAILY sildenafil 100 mg PO ONCE PRN 30 days sitagliptin phosphate (Januvia) 25 mg PO DAILY sodium,potassium,mag sulfates 17.5-3.13-1.6 gram (Suprep Bowel Prep Kit) DILUTE; drink full amount 5pm evening before AND 2nd bottle at 11pm follow each bottle with 32 oz. water or clear liquid tadalafil 10 mg PO DAILY 90 days HPI HPI Comments History of Present Illness Details Inocente is a pleasant male. He is a patient of Dr. Chavez. He is seen for the following urologic conditions - lower urinary tract symptoms - erectile dysfunction in setting of diabetes Telemedicine Evaluation 15 min Consultation DoxAppSurfer Raina Video attempted Continue good response to InterStim Very happy he had the stone Effective emptying Off daily tadalafil. Did refill on demand sildenafil Erectile Dysfunction in setting of diabetes Effective response with medication and weaning of duloxetine Prior therapy on demand sildenafil, daily tadalafil Lower urinary tract symptoms Initial presentation with urinary retention background diabetes Past voiding trial after spinal intervention Had episode of spinal stenosis with urinary retention [address] Chen Has had significant return of urinary function InterStim placement 06/25 ON LICENSE OF [facility] Medical History (Updated 03/01/23 @ 11:20 by Lisset Montague RN) Fecal incontinence Lower extremity numbness Colitis Diabetic autonomic neuropathy CAD (coronary artery disease) Diabetes HTN (hypertension) Surgical History (Updated 03/01/23 @ 11:16 by Lisset Montague RN) S/P placement of nerve stimulator Hx of discectomy Hx of colonoscopy History of right coronary artery stent placement Family History Father Colon cancer Social History Patient Tobacco Use Status: Former Tobacco user Quit Date: age 43 Tobacco use type: Cigarette Second Hand Smoke Exposure: No Review of Systems Const All systems reviewed & are unremarkable except as noted in HPI and below Reports no additional complaints Resp Reports no additional complaints GI Reports no additional complaints Reports as per HPI Musc Reports no additional complaints Physical Exam Telemedicine evaluation Appropriate responses Regular breathing rate and rhythm HEENT Head: Yes normal to inspection Ears: hearing grossly normal bilaterally Eyes General: appearance normal, both eyes and all related structures Neck Neck: Yes normal visual inspection Chest Chest palpation & inspection: normal inspection of the chest Resp Effort & Inspection: normal respiratory effort and able to speak in complete sentences Assessment & Plan Assessment & Plan (1) Erectile dysfunction associated with type 2 diabetes mellitus: Code(s): E11.69 - Type 2 diabetes mellitus with other specified complication; N52.1 - Erectile dysfunction due to diseases classified elsewhere (2) Urinary retention with incomplete bladder emptying: Code(s): R33.9 - Retention of urine, unspecified Plan Twelve month follow-up office Medications: Refilled sildenafil administer 60 minutes before intended activity 100 mg PO ONCE 30 days PRN 30 tabs 1RF sexual activity E08.40 - Diabetes mellitus due to underlying condition with diabetic neuropathy, unspecified Patient Instructions: Imaging studies, laboratory and physical exam results were discussed and reviewed in detail. No major barriers to patient understanding were identified. An opportunity to ask questions regarding the treatment plan was provided. All questions were answered. The patient expressed understanding and agreement with the above treatment plan. The patient is aware they should contact our office by phone for worsening of their current condition or the appearance of new urologic symptoms. Compliance is encouraged with any medications and followup testing that is ordered. It is a privilege to participate in the urologic care of your patient. If you have any questions or concerns regarding treatment for the above conditions, or other urologic issues, please do not hesitate to contact me. The office telephone contact is [phone]. This note is constructed using voice recognition software. While every effort has been made to ensure accuracy early childhood teacher assistant errors may have been included. Yours sincerely, Dr Zachary Pugh MD, ANDRE[facility] - Urology Providers of Expert, Compassionate Care for the Genitourinary System Telehealth Telehealth Location of provider rendering services: practice address Location of patient: address on file Patient Identification confirmed using: Name, : Yes Telehealth method: video Patient verbally consented to treatment: Yes Patient verbally consented to billing insurance company: Yes Patient informed of any privacy concerns related to visit: Yes Coding Level of Care Code Tele Est Pt Level 3 (28101) Diagnoses Erectile dysfunction associated with type 2 diabetes mellitus E11.69; N52.1 Urinary retention with incomplete bladder emptying R33.9
== END 2023-06-12 13:57 | disposition home or self-care (01) ==
LOC: HO.HUSH 13:38
PROVIDERS: Visit Provider Urology
DX: E11.69 Type 2 diabetes mellitus with other specified complication (principal); N52.1 Erectile dysfunction due to diseases classified elsewhere; R33.9 Retention of urine, unspecified
CPT/HCPCS: 99213

== ENCOUNTER → 2023-06-12 13:38 | Outpatient (BNVA) | payer OTHER, SELFPAY | PROVIDERS: Visit Provider Urology ==

== ENCOUNTER 2023-07-04 09:53 | Day surgery (SDC) | payer OTHER, SELFPAY ==
[2023-03-01 11:17] VITALS: BMI 28.5
--- NOTE | 2023-03-02 10:17 | HO.ANESPROP2 ---
HPI - Anesthesia Eval Consult details Narrative: 63yo M for Upper Endoscopy and Colonoscopy s/p interstim 11/2022 with [facility] Active Problems Active Problems: All Active Problems (Updated 03/01/23 @ 11:20 by Lisset Montague RN) Eosinophilic colitis (Acute) Food allergy (Acute) Malnutrition (Acute) Incontinence of feces (Acute) Erectile dysfunction associated with type 2 diabetes mellitus (Acute) Diabetic neuropathy associated with diabetes mellitus due to underlying condition (Acute) Urinary retention with incomplete bladder emptying (Acute) Diabetes (Acute) HTN (hypertension) (Acute) Past Medical History Medical History (Updated 03/01/23 @ 11:20 by Lisset Montague RN) Fecal incontinence Lower extremity numbness Colitis Diabetic autonomic neuropathy CAD (coronary artery disease) Diabetes HTN (hypertension) Family History Family History Father Colon cancer Family history of problems with anesthesia: No Surgical History Surgical History (Updated 03/01/23 @ 11:16 by Lisset Montague RN) S/P placement of nerve stimulator Hx of discectomy Hx of colonoscopy History of right coronary artery stent placement History of Problems with Anesthesia: No Social History Social History Patient Tobacco Use Status: Former Tobacco user Quit Date: age 43 Tobacco use type: Cigarette Second Hand Smoke Exposure: No Use of substances other than those prescribed or required for medical reasons: No Have you been hit, kicked, punched, or otherwise hurt by someone within the past year? If so, by whom?: No Recently lost weight without trying: No Eating poorly because of decreased appetite: No Nutrition Risks: No Nutritional Risk Poor oral hygiene: No (one broken tooth) Meds Allergies Allergy/AdvReac Type Severity Reaction Status Date / Time No Known Allergies Allergy Verified 01/01/23 09:12 Home Medications Medication Instructions Recorded Confirmed Last Taken Type sitagliptin phosphate 25 mg tablet 25 mg PO DAILY 09/27/21 03/01/23 Unknown History (Nadeen) atorvastatin 40 mg tablet 40 mg PO DAILY 04/10/22 03/01/23 Unknown History flash glucose sensor (FreeStyle #1 ea 04/10/22 12/08/22 Unknown History Ella 2 Sensor kit) lisinopril 30 mg tablet 30 mg PO DAILY 04/10/22 03/01/23 Unknown History metoprolol tartrate 25 mg tablet 25 mg PO DAILY 04/10/22 03/01/23 10/23/22 History metformin 500 mg tablet 500 mg PO DAILY 09/01/22 03/01/23 Unknown History dextroamphetamine-amphetamine ER 1 cap PO QAM 01/01/23 03/01/23 Unknown History 10 mg 24hr capsule,extend release hydrocodone 5 mg-acetaminophen 325 1 tab PO Q4H PRN pain 01/01/23 Unknown History mg tablet Exam Height,Weight and Vital Signs: Height 6 ft 1 in Weight 97.976 kg Pertinent Lab Results Pertinent Lab Results: Laboratory Tests 01/15/23 01/15/23 14:02 17:10 WBC 6.9 Hgb 15.0 Hct 46.4 Plt Count 218 Sodium 137 Potassium 4.0 Chloride 100 Carbon Dioxide 29 BUN 13 Creatinine 0.86 Assessment and Plan Assessment Anesthesia Assessment: Chart Reviewed Final Anesthetic Review Family History of Problems with Anesthesia: No History of Problems with Anesthesia: No
--- NOTE | 2023-07-03 08:50 | HO.ANESPROP2 ---
Documented by User: Alee Huggins NP 07/03/23 08:51 HPI - Anesthesia Eval Consult details Narrative: 63yo M for Upper Endoscopy and Colonoscopy CAD with stent 2016. Follows [facility] cardiology Anesthesia Pre-Procedure Meds Is the patient on any of the following meds?: GLP1/DPP4 PMFSH Active Problems Active Problems: All Active Problems Eosinophilic colitis (Acute) Food allergy (Acute) Malnutrition (Acute) Incontinence of feces (Acute) Erectile dysfunction associated with type 2 diabetes mellitus (Acute) Diabetic neuropathy associated with diabetes mellitus due to underlying condition (Acute) Urinary retention with incomplete bladder emptying (Acute) Diabetes (Acute) HTN (hypertension) (Acute) Past Medical History Medical History (Updated 03/01/23 @ 11:20 by Lisset Montague RN) Fecal incontinence Lower extremity numbness Colitis Diabetic autonomic neuropathy CAD (coronary artery disease) Diabetes HTN (hypertension) Family History Family History Father Colon cancer Family history of problems with anesthesia: No Surgical History Surgical History (Updated 03/01/23 @ 11:16 by Lisset Montague RN) S/P placement of nerve stimulator Hx of discectomy Hx of colonoscopy History of right coronary artery stent placement History of Problems with Anesthesia: No Social History Social History Patient Tobacco Use Status: Former Tobacco user Quit Date: age 43 Tobacco use type: Cigarette Second Hand Smoke Exposure: No Use of substances other than those prescribed or required for medical reasons: No Have you been hit, kicked, punched, or otherwise hurt by someone within the past year? If so, by whom?: No Advance Directives: No Advance Directives Information Provided: Yes Recently lost weight without trying: No Eating poorly because of decreased appetite: No Nutrition Risks: No Nutritional Risk Poor oral hygiene: No (one broken tooth) Meds Allergies Allergy/AdvReac Type Severity Reaction Status Date / Time No Known Allergies Allergy Verified 01/01/23 09:12 Home Medications ?Medication ?Instructions ?Recorded ?Confirmed ?Last Taken ?Type sitagliptin phosphate 25 mg tablet 25 mg PO DAILY 09/27/21 06/12/23 Unknown History (Chich[place]via) atorvastatin 40 mg tablet 40 mg PO DAILY 04/10/22 06/12/23 Unknown History flash glucose sensor (FreeStyle #1 ea 04/10/22 06/12/23 Unknown History Ella 2 Sensor kit) lisinopril 30 mg tablet 30 mg PO DAILY 04/10/22 06/12/23 Unknown History metoprolol tartrate 25 mg tablet 25 mg PO DAILY 04/10/22 06/12/23 07/04/23 History metformin 500 mg tablet 500 mg PO DAILY 09/01/22 06/12/23 Unknown History dextroamphetamine-amphetamine ER 1 cap PO QAM 01/01/23 06/12/23 Unknown History 10 mg 24hr capsule,extend release hydrocodone 5 mg-acetaminophen 325 1 tab PO Q4H PRN pain 01/01/23 06/12/23 Unknown History mg tablet Exam Exam Date and Time: November 10, 2022 0858 Height,Weight and Vital Signs: Height 6 ft 1 in Weight 97.976 kg Narrative Narrative: EKG 10/2022 Vent. Rate : 056 BPM Atrial Rate : 056 BPM P-R Int : 194 ms QRS Dur : 088 ms QT Int : 456 ms P-R-T Axes : 048 051 051 degrees QTc Int : 440 ms Sinus bradycardia Otherwise normal ECG No previous ECGs available Assessment and Plan Assessment Anesthesia Assessment: Chart Reviewed Final Anesthetic Review Family History of Problems with Anesthesia: No History of Problems with Anesthesia: No Documented by User: Debra Garza MD 07/04/23 11:45 [facility] Past Medical History Medical History (Updated 03/01/23 @ 11:20 by Lisset Montague RN) Fecal incontinence Lower extremity numbness Colitis Diabetic autonomic neuropathy CAD (coronary artery disease) Diabetes HTN (hypertension) Family History Family History Father Colon cancer Surgical History Surgical History (Updated 03/01/23 @ 11:16 by Lisset Montague RN) S/P placement of nerve stimulator Hx of discectomy Hx of colonoscopy History of right coronary artery stent placement Social History Social History Patient Tobacco Use Status: Former Tobacco user Quit Date: age 43 Tobacco use type: Cigarette Second Hand Smoke Exposure: No Use of substances other than those prescribed or required for medical reasons: No Have you been hit, kicked, punched, or otherwise hurt by someone within the past year? If so, by whom?: No Advance Directives: No Advance Directives Information Provided: Yes Recently lost weight without trying: No Eating poorly because of decreased appetite: No Nutrition Risks: No Nutritional Risk Poor oral hygiene: No (one broken tooth) Meds Allergies Allergy/AdvReac Type Severity Reaction Status Date / Time No Known Allergies Allergy Verified 01/01/23 09:12 Home Medications ?Medication ?Instructions ?Recorded ?Confirmed ?Last Taken ?Type sitagliptin phosphate 25 mg tablet 25 mg PO DAILY 09/27/21 06/12/23 Unknown History (Nadeen) atorvastatin 40 mg tablet 40 mg PO DAILY 04/10/22 06/12/23 Unknown History flash glucose sensor (FreeStyle #1 ea 04/10/22 06/12/23 Unknown History Ella 2 Sensor kit) lisinopril 30 mg tablet 30 mg PO DAILY 04/10/22 06/12/23 Unknown History metoprolol tartrate 25 mg tablet 25 mg PO DAILY 04/10/22 06/12/23 07/04/23 History metformin 500 mg tablet 500 mg PO DAILY 09/01/22 06/12/23 Unknown History dextroamphetamine-amphetamine ER 1 cap PO QAM 01/01/23 06/12/23 Unknown History 10 mg 24hr capsule,extend release hydrocodone 5 mg-acetaminophen 325 1 tab PO Q4H PRN pain 01/01/23 06/12/23 Unknown History mg tablet Exam Airway Mallampati Class: II TM Dist: >3cm Neck ROM: Full Heart: rrr Lungs: cta Assessment and Plan Assessment Anesthesia Assessment: Anesthesia Plan Discussed Final Anesthetic Review NPO: Yes ASA Class: II Final Preanesthetic Review: No Changes in Pt Med Stat, Meds/Allgs Chart Reviewed and Consent Obtained/Reviewed Patient Risk: Low Procedure Risk: Intermediate Anesthetic Plan Anesthetic Plan: MAC: Disposition: Standard PACU
[2023-07-04 11:05] VITALS: BMI 28.0
[2023-07-04 11:19] VITALS: BP 158/66; PULSE 56; RESP 16; TEMP 36.6; O2SAT 97
--- NOTE | 2023-07-04 11:41 | MHC.SHP ---
Pre-Procedural Eval Section A - 24 Hr Update-Section A only Date of Service: 07/04/23 Section B - Complete if H&P > 30 days Chief Complaint: Full incontinence of feces, Eosinophilic colitis Details of Present Illness: abdominal pain and nausea Relevant Family History (Specify if Yes): No Relevant Social History: None Present Medications: see Short Stay Collaborative assessment Medical History: Significant History (Fecal incontinence Lower extremity numbness Colitis Diabetic autonomic neuropathy CAD (coronary artery disease) Diabetes HTN (hypertension)) History of Previous Operations: Relevant previous surgery/procedure and date(s) (S/P placement of nerve stimulator Hx of discectomy Hx of colonoscopy History of right coronary artery stent placement) Allergies: Allergies Allergy/AdvReac Type Severity Reaction Status Date / Time No Known Allergies Allergy Verified 01/01/23 09:12 Review of Systems Sugical H&P ROS: Negative: Constitution, Cardiovascular, Respiratory, Neurological, Psychiatric, Hem-Onc, Allergic/Immunologic, Gastrointestinal, Genitourinary, Musculoskeletal, Integumentary, Endocrine and Eyes/Ears/Nose/Throat Exam Surgical H&P Exam: Normal: HEENT, Normal: Heart, Normal: Lungs, Normal: Extremities, Normal: Abdomen, Normal: Skin and Normal: Neurological Plan Diagnosis/Plan: Unchanged I have reviewed the history and physical and performed a pertinent physical examination on my patient. No changes have occurred unless specified. Time Spent With Patient Time: Total time managing care of this patient today ____ minutes.
[2023-07-04] MEDS: Lactated Ringers 1,000 ML 100 ML IVCONT (11:43)
--- NOTE | 2023-07-04 12:18 | P.OP_ITS ---
Operative Note Operative Note Date of Service: 07/04/23 Narrative: Operative Information Procedure Description: EGD, Colonoscopy Indication: nausea, colitis Anesthesia: MAC FLEXIBLE TRANSORAL UPPER GASTROINTESTINAL ENDOSCOPY AND COLONOSCOPY PROCEDURE NOTE UPPER ENDOSCOPY Consent: Indications for the procedure and potential complications of bleeding, perforation, reaction to medications and missed diagnosis were discussed with the patient and informed consent was obtained. Instrument: Olympus GIF H 190 J mid size upper endoscope Monitoring: Vital signs and clinical assessment, continuous EKG monitoring, Pulse oximetry, Carbon Dioxide monitoring and blood pressure monitoring were done throughout the procedure. Procedure: The patient was placed in the left lateral decubitis position and pre-procedure medications were administered and a bite block was placed. The endoscope was inserted into the mouth and advanced under direct vision to the third part of duodenum. A careful inspection was made as the upper endoscope was withdrawn including a retroflexed examination of the proximal stomach; Findings and interventions are described below. Findings: Larynx:normal Esophagus: GE junction at 45 cm, diaphragm hiatus at 45 cm, bx taken from GJe d ue to congestion and erythema Stomach: mild patchy erythema. Biopsies were obtained. Grade 2 flap valve on retroflexed examination of the cardia. Duodenum: erosive bulbar duodenitis, bx taken Intervention: Biopsies as noted above, COLONOSCOPY Instrument: Olympus variable stiffness pediatric scope 190L Colonoscopy Monitoring: Vital signs and clinical assessment, continuous EKG monitoring, Pulse oximetry, Carbon Dioxide monitoring and blood pressure monitoring were done throughout the procedure. Colon withdrawal time was 10 minutes. Procedure: The patient was placed in the left lateral decubitis position and pre-procedure medications were administered. After a digital rectal examination of the ano-rectum, the video colonoscope was inserted into the rectum and advanced through the colon to the cecum/TI. The colonoscope was slowly withdrawn in a retrograde panoramic fashion and the colon mucosa was carefully examined including a retroflexed view of the rectum. Findings and interventions are described below. Procedure Difficulty:moderate Findings: Terminal Ileum-normal, bx taken Random bx taken from left and right colon in separate jars Cecum:normal Ascending Colon: few diverticula seen Transverse Colon -normal Descending Colon:normal Sigmoid Colon: moderate diverticulosis Rectum: Retroflexion with small internal hemorrhoids, grade I Anorectum - normal Colon preparation: [place] Bowel Preparation Scale Right colon; 2 Transverse colon: 2 Left colon; 2 (0 = Unprepared colon segment with mucosa not seen due to solid stool that c annot be cleared. 1 = Portion of mucosa of the colon segment seen, but other areas of the colon segment not well seen due to staining, residual stool and/or opaque liquid. 2 = Minor amount of residual staining, small fragments of stool and/or opaque liquid, but mucosa of colon segment seen well. 3 = Entire mucosa of colon segment seen well with no residual staining, small fragments of stool or opaque liquid) Impression and Post Procedure Diagnosis: Endoscopy Findings: erosive duodenitis gastritis esophagitis Colonoscopy Findings: diverticulosis internal hemorrhoids Plan: Await Pathology results Repeat Colonoscopy in 10 years or earlier if clinically indicated High fiber diet leaflet avoid straining at stool, epsom salts and sitz bath, anusol supps or cream trial of PPI Above findings were reviewed with the patient and relevant handouts were provided if indicated.
[2023-07-04 12:24] VITALS: BP 100/46; PULSE 61; RESP 16; TEMP 36.2; O2SAT 93
[2023-07-04 12:35] VITALS: BP 97/51; PULSE 61; RESP 16; O2SAT 95
[2023-07-04 12:50] VITALS: BP 108/53; PULSE 60; RESP 16; TEMP 36.2; O2SAT 95
== END 2023-07-04 13:37 | disposition home or self-care (01) ==
PROVIDERS: Visit Provider Internal Medicine Gastroenterology
PROC: (CPT 45380; principal; 2023-07-04 12:10)
DX: R15.9 Full incontinence of feces (principal); K52.82 Eosinophilic colitis; K57.30 Diverticulosis of large intestine without perforation or abscess without bleeding; K64.0 First degree hemorrhoids; K20.90 Esophagitis, unspecified without bleeding; K29.70 Gastritis, unspecified, without bleeding; K26.9 Duodenal ulcer, unspecified as acute or chronic, without hemorrhage or perforation; E11.9 Type 2 diabetes mellitus without complications; I10 Essential (primary) hypertension
CPT/HCPCS: 45380; 43239; 82947; 88305; 88313; 88342; J2704

== ENCOUNTER → 2023-07-04 09:53 | Outpatient (BNV) | payer OTHER, SELFPAY | PROVIDERS: Visit Provider Internal Medicine Gastroenterology | DX: R11.0 Nausea (principal); K29.80 Duodenitis without bleeding; K29.70 Gastritis, unspecified, without bleeding; K52.9 Noninfective gastroenteritis and colitis, unspecified; K57.90 Diverticulosis of intestine, part unspecified, without perforation or abscess without bleeding; K64.0 First degree hemorrhoids | CPT/HCPCS: 43239; 45380 ==

== ENCOUNTER 2023-07-16 10:31 | Outpatient (AMB) | payer OTHER, SELFPAY ==
--- NOTE | 2023-07-16 10:33 | MHC.OFFVIS ---
Vital Signs 07/16/23 10:37 Height 6 ft 1 in Weight 213 lb 13.574 oz BMI 28.2 BP 181/80 H Blood Pressure Location Lt brachial Position Sitting Pulse 62 Intake Visit Reasons: s/p egd/colon Intake Note: Inocente presents in the office as a follow up egd and colonoscopy. CC: No concerns just here for the results. Neurosurgery Research Director Required: No Allergies No Known Allergies Allergy (Verified 07/16/23 10:34) HPI HPI s/p egd/colon: Details: 62 yr old m here for f/u for eosinophilic colitis RECAP: He decribes problems since last when he had numbness from torso down along with bladder retention he had bladder drained and was sent home since then he has minimal feeling from waist to the feet he did get spinal surgery at July 2021 and had release of nerves from the spine, and relieved pain and neuropathy but the numbness persisted --he was told things may incrementally improve or not with time constant feeling of wanting to go to the bathroom he has been told by Dr oliver he has overlflow incontinence, he soils himself few times a week, he has no feeling of it no blood in the stool he has nausea all the time he has some pelvic fullness he can empty bladder and urinate but he has to push he had colonoscopy aged 53 and aged 46 ---may have had some polyps Colonoscopy: granular mucosa, Path with increased eosinophils RAST studies were neg lactoferrin was neg He had spinal stim placed by Dr Pugh EGD/[place] 07/04/23 Endoscopy Findings: erosive duodenitis gastritis esophagitis Colonoscopy Findings: diverticulosis internal hemorrhoids path: no eosinophils, nml TI and colon INTERIM: He feels the stim has helped and he gets warning now but still has loose stools at night has ongoing fatigue and tiredness not taking metformin anymore he stopped milk and it might have helped his symptoms EXAM: GENERAL: The patient is well developed and nontoxic. VITAL SIGNS:see workflow HEENT: Nonicteric sclerae, PERRLA, EOMI. Oropharynx clear. Moist mucous membranes. Conjunctivae appear well perfused. No thyroid mass. CHEST: Chest wall is nontender. HEART: Regular rate and rhythm without murmurs. LUNGS: Clear to auscultation bilaterally. ABDOMEN: Soft, positive bowel sounds, nontender, no organomegaly.no flank tenderness SKIN: No rash, no excessive bruising, petechiae, or purpura. NEUROLOGIC: Cranial nerves II-XII intact without motor/sensory deficit. A/P: 1/ Fecal incontinence secondary to spinal cord injury and possible diabetic autonomic neuropathy, s/p spinal stimulator Plan: 1/avoid milk, try [place] free milk 2/ cont with PPI 3/trial of welchol and see if helps PFSH Medical History Fecal incontinence Lower extremity numbness Colitis Diabetic autonomic neuropathy CAD (coronary artery disease) Diabetes HTN (hypertension) Surgical History (Updated 07/16/23 @ 10:34 by JIMENA Tilley) History of esophagogastroduodenoscopy (EGD) S/P placement of nerve stimulator Hx of discectomy Hx of colonoscopy History of right coronary artery stent placement Family History Father Colon cancer Social History Patient Tobacco Use Status: Former Tobacco user Quit Date: age 43 Tobacco use type: Cigarette Second Hand Smoke Exposure: No Physical Exam Vital Signs: Last Vital Signs Pulse 62 07/16/23 10:37 BP 181/80 H 07/16/23 10:37 BMI result Body Mass Index 28.2 Assessment & Plan Assessment & Plan (1) Incontinence of feces: Code(s): R15.9 - Full incontinence of feces Category: Medical Qualifiers: Fecal incontinence type: fecal urgency Qualified Code(s): R15.9 - Full incontinence of feces; R15.2 - Fecal urgency Plan: see above Medications: New colesevelam (WelChol) 1,250 mg (2 x 625 mg) PO BID 120 tabs 1RF Coding Level of Care Code Est Pt Level 3 (97540) Diagnoses Incontinence of feces with fecal urgency R15.9; R15.2 Fecal incontinence type: fecal urgency
[2023-07-16 10:37] VITALS: BP 181/80; PULSE 62; BMI 28.2
== END 2023-07-16 11:08 | disposition home or self-care (01) ==
PROVIDERS: Visit Provider Internal Medicine Gastroenterology
DX: R15.9 Full incontinence of feces (principal); R15.2 Fecal urgency
CPT/HCPCS: 99213

== ENCOUNTER → 2023-07-16 10:31 | Outpatient (BNVA) | payer OTHER, SELFPAY | PROVIDERS: Visit Provider Internal Medicine Gastroenterology | DX: R15.9 Full incontinence of feces (principal); R15.2 Fecal urgency | CPT/HCPCS: 99212 ==

== ENCOUNTER 2023-11-19 10:28 | Outpatient (AMB) | payer OTHER, SELFPAY ==
--- NOTE | 2023-11-19 10:38 | A.OFFVIS_ITS ---
Vital Signs 11/19/23 10:39 Height 6 ft 1 in Weight 213 lb 13.574 oz BMI 28.2 BP 146/72 H Blood Pressure Location Lt brachial Position Sitting Pulse 78 Intake Visit Reasons: 4 month follow up Intake Note: Inocente presents in the office as a 4 month follow up. CC: states that he is not having any new concerns - all the same symptoms as you previously spoke about. Corrugator Operator Required: No Allergies No Known Allergies Allergy (Verified 11/19/23 10:40) HPI HPI 4 month follow up: Details: 63 yr old m here for f/u for eosinophilic colitis RECAP: He decribes problems since last when he had numbness from torso down along with bladder retention he had bladder drained and was sent home since then he has minimal feeling from waist to the feet he did get spinal surgery at July 2021 and had release of nerves from the spine, and relieved pain and neuropathy but the numbness persisted --he was told things may incrementally improve or not with time constant feeling of wanting to go to the bathroom he has been told by Dr oliver he has overflow incontinence, he soils himself few times a week, he has no feeling of it no blood in the stool he has nausea all the time he has some pelvic fullness he can empty bladder and urinate but he has to push he had colonoscopy aged 53 and aged 46 ---may have had some polyps Colonoscopy: granular mucosa, Path with increased eosinophils RAST studies were neg lactoferrin was neg He had spinal stim placed by Dr Pugh EGD/[facility] 07/04/23 Endoscopy Findings: erosive duodenitis gastritis esophagitis Colonoscopy Findings: diverticulosis internal hemorrhoids path: no eosinophils, nml TI and colon INTERIM: stools are semi solid, no gas for few weeks he then has regurgitation and gas for a week then it goes he has the stim and it still helps with avoiding accidents his pcp gave him adderall and it has helped a little with fatigue he has a lot of fatigue as well he denies abdominal pain, worreid about colitis due to the variable stools, colonoscopy this year as above EXAM: GENERAL: The patient is well developed and nontoxic. VITAL SIGNS:see workflow HEENT: Nonicteric sclerae, PERRLA, EOMI. Oropharynx clear. Moist mucous membranes. Conjunctivae appear well perfused. No thyroid mass. CHEST: Chest wall is nontender. HEART: Regular rate and rhythm without murmurs. LUNGS: Clear to auscultation bilaterally. ABDOMEN: Soft, positive bowel sounds, nontender, no organomegaly.no flank tenderness SKIN: No rash, no excessive bruising, petechiae, or purpura. NEUROLOGIC: Cranial nerves II-XII intact without motor/sensory deficit. A/P: 1/ Fecal incontinence secondary to spinal cord injury and possible diabetic autonomic neuropathy, s/p spinal stimulator --feels overwhelming fatigue, helped by adderral Plan: 1/ CT scan with IV and PO contrast r/o any intra abdominal path 2/ check testosterone level ( fasting, has not had erections for about a year- coincides with the onset of his fatigue sx) 3/ check TSH, 4/ check stools tests incl lactoferrin, PFSH Medical History Fecal incontinence Lower extremity numbness Colitis Diabetic autonomic neuropathy CAD (coronary artery disease) Diabetes HTN (hypertension) Surgical History History of esophagogastroduodenoscopy (EGD) S/P placement of nerve stimulator Hx of discectomy Hx of colonoscopy History of right coronary artery stent placement Family History Father Colon cancer Social History Patient Tobacco Use Status: Former Tobacco user Tobacco use type: Cigarette Second Hand Smoke Exposure: No Physical Exam Vital Signs: BMI result Body Mass Index 28.2 Assessment & Plan Assessment & Plan (1) Fatigue: Code(s): R53.83 - Other fatigue Category: Medical Plan: see above (2) Eosinophilic colitis: Code(s): K52.82 - Eosinophilic colitis Category: Medical Plan: see above Orders: Orders Testosterone, Free/Total Today R53.83 - Other fatigue Cortisol Random Today R53.83 - Other fatigue Complete Blood Count Auto Diff Today K52.82 - Eosinophilic colitis, R53.83 - Other fatigue CT abdomen pelvis w IV con Today K52.82 - Eosinophilic colitis, R53.83 - Other fatigue Testosterone, Total Today R53.83 - Other fatigue Bioavailable Testosterone Today R53.83 - Other fatigue Lactoferrin, Fecal, Quant. Today K51.50 - Left sided colitis without complications, R53.83 - Other fatigue TSH reflex Free T4 Today R53.83 - Other fatigue Cortisol, Free Today R53.83 - Other fatigue Comprehensive Met. Panel Today K52.82 - Eosinophilic colitis, K75.81 - Nonalcoholic steatohepatitis (SEWELL), R53.83 - Other fatigue Coding Level of Care Code Est Pt Level 4 (90213) Diagnoses Fatigue R53.83 Eosinophilic colitis K52.82
[2023-11-19 10:39] VITALS: BP 146/72; PULSE 78; BMI 28.2
== END 2023-11-19 11:36 | disposition home or self-care (01) ==
PROVIDERS: Visit Provider Internal Medicine Gastroenterology
DX: R53.83 Other fatigue (principal); K52.82 Eosinophilic colitis
CPT/HCPCS: 99214

== ENCOUNTER → 2023-11-19 10:28 | Outpatient (BNVA) | payer OTHER, SELFPAY | PROVIDERS: Visit Provider Internal Medicine Gastroenterology | DX: K52.82 Eosinophilic colitis (principal); K51.50 Left sided colitis without complications; K75.81 Nonalcoholic steatohepatitis (NASH); R53.83 Other fatigue | CPT/HCPCS: 99212 ==

== ENCOUNTER 2023-11-20 07:35 | Outpatient (REF) | payer OTHER, SELFPAY ==
[2023-11-20 07:53] LABS: MANUAL DIFF FLAG NO
[2023-11-20 08:26] LABS: Basophils Absolute Auto 0.1 X10*3/uL (0.0-0.2); Basophils Percent Auto 0.8 % (0-2); Eosinophils Absolute Auto 0.2 X10*3/uL (0.0-0.4); Hematocrit 47.6 % (42.0-52.0); Hemoglobin 15.4 g/dl (14.0-18.0); Imm Gran Abs Auto 0.04 X10*3/uL (0.00-0.03); Imm Gran Pct Auto 0.6 % (0.0-0.4); Lymphocytes Absolute Auto 1.8 X10*3/uL (1.2-4.9); Lymphocytes Percent Auto 27.4 % (20-40); Mean Corpuscular HGB Conc 32.4 g/dl (31.0-36.0); Mean Corpuscular Hemoglobin 27.7 pg (27.0-33.0); Mean Corpuscular Volume 85.8 fL (80.0-98.0); Monocytes Absolute Auto 0.6 X10*3/uL (0.1-1.2); Monocytes Percent Auto 8.7 % (2-11); Neutrophils Percent Auto 59.5 % (45-73); Platelet Count 219 X10*3/uL (160-400); Red Blood Count 5.55 X10*6/uL (4.60-5.80); Red Cell Distribution Width 12.5 % (11.0-16.0); White Blood Count 6.6 X10*3/uL (4.8-10.8)
[2023-11-20 09:01] LABS: Alanine Aminotransferase 26 U/L (0-40); Albumin Level 4.3 g/dL (3.5-5.0); Alkaline Phosphatase 67 U/L (39-117); Anion Gap 14 (12-20); Aspartate Amino Transferase 19 U/L (5-37); Bilirubin Total 0.6 mg/dL (0.0-1.0); Blood Urea Nitrogen 12 mg/dL (9-16); Calcium 9.7 mg/dL (8.4-10.2); Carbon Dioxide 25 mmol/L (22-29); Chloride 104 mmol/L (96-108); Estimated Glomerular Filt Rate > 60; Glucose Random 202 mg/dL (60-115); Potassium 4.6 mmol/L (3.3-5.1); Sodium 138 mmol/L (135-145); Total Protein 7.8 g/dL (6.5-8.0)
[2023-11-20 09:13] LABS: Cortisol Random 9.8 ug/dL
[2023-11-20 09:18] LABS: TSH reflex Free T4 1.99 uIU/mL (0.32-4.0)
[2023-11-28 12:06] LABS: Testosterone-Total 494
[2023-11-28 12:07] LABS: Testosterone-Free 59.8
[2023-11-28 12:08] LABS: Testosterone-Bioavailable 117.7; Testosterone-SHBG 38
[2023-11-28 12:09] LABS: Testosterone-Albumin 4.3
[2023-11-28 12:11] LABS: Cortisol, Free 0.38
== END 2023-11-20 07:36 | disposition home or self-care (01) ==
LOC: HO.LAB 07:35
PROVIDERS: PCP Physician Assistant; Visit Provider Internal Medicine Gastroenterology
DX: R53.83 Other fatigue (principal); K75.81 Nonalcoholic steatohepatitis (NASH); K52.82 Eosinophilic colitis
CPT/HCPCS: 36415; 80053; 82530; 82533; 84402; 84403; 84443; 85025

== ENCOUNTER 2023-11-21 12:04 | Outpatient (REF) | payer OTHER, SELFPAY ==
[2023-11-28 21:33] LABS: Lactoferrin, Fecal, Quant. <6.25 mcg/mL (<7.25)
== END 2023-11-21 12:05 | disposition home or self-care (01) ==
LOC: HO.LNP 12:04
PROVIDERS: Visit Provider Internal Medicine Gastroenterology
DX: K51.50 Left sided colitis without complications (principal); R53.83 Other fatigue
CPT/HCPCS: 83631

== ENCOUNTER 2023-12-24 11:45 | Inpatient (IN) | payer OTHER, SELFPAY ==
--- NOTE | ~2023-12-24 | US_ITS ---
EXAMINATION: Ultrasound arterial duplex lower extremity right CLINICAL INFORMATION: Diabetes. Rule out peripheral vascular disease. COMPARISON: None available. TECHNIQUE: Grayscale, color and spectral Doppler imaging was obtained of the deep arterial system of the right lower extremity. FINDINGS: Patent deep arterial system of the right lower extremity. There is scattered atherosclerotic disease noted. Normal triphasic waveforms are appreciated throughout the majority of the right lower extremity. No focally elevated velocity to suggest an area of hemodynamically significant stenosis. US/US arterial duplex LE RT IMPRESSION: No ultrasound evidence to suggest hemodynamically significant stenosis within the deep arterial system of the right lower extremity. Electronically signed by: Ruben Fernandez MD 12/29/2023 09:39 AM EDT
--- NOTE | ~2023-12-24 | XR_ITS ---
EXAMINATION: XR CHEST CLINICAL INFORMATION: Shortness of breath. Concern for pneumonia. COMPARISON: None available. TECHNIQUE: Frontal view of the chest was obtained. FINDINGS: The cardiomediastinal silhouette is normal. There is no focal lung consolidation or pleural effusions. The bony structures and soft tissues are unremarkable. XR/XR chest 1V IMPRESSION: No acute cardiopulmonary process. Electronically signed by: Santiago Shore MD 12/25/2023 12:06 AM EDT
--- NOTE | ~2023-12-24 | MR_ITS ---
EXAMINATION: MR FOOT WITHOUT AND WITH IV CONTRAST, RIGHT CLINICAL INFORMATION: Redness and warmth. ?osteomyelitis. COMPARISON: XR Right foot 12/24/2023. TECHNIQUE: MRI of the right foot was performed before and after the intravenous administration of 10 mL Gadavist on a high-field scanner. FINDINGS: Resection of the distal 1st metatarsal and 1st phalanges is redemonstrated. Diffuse articular cartilage loss with bony remodeling and subchondral cystic change again noted at the 2nd tarsometatarsal joint, similar when compared to prior radiographs and consistent with severe arthropathy versus sequela of remote trauma/avascular necrosis. No metatarsal stress reaction or fracture. No evidence of acute osseous injury. Prominent dorsal subcutaneous edema extending along the foot distally to the toes and proximally beyond the image [id number]. Mild associated skin thickening with minimal postcontrast enhancement. Findings could represent mild cellulitis. No organized fluid collection or abscess formation. Postsurgical artifact adjacent to the amputation site without enhancement or abscess formation. No discrete evidence of acute osteomyelitis. The visualized flexor and extensor tendons are intact. Edema and atrophy throughout the intrinsic musculature of the foot which can be seen in diabetic patients. Intact Lisfranc ligament. MR/MR foot RT wo/w con IMPRESSION: 1. Prominent dorsal subcutaneous edema extending along the foot and proximally beyond the image [id number] with mild skin thickening and postcontrast enhancement. Findings could represent mild cellulitis. No organized fluid collection or abscess formation. No discrete evidence of acute osteomyelitis. 2. Resection of the distal 1st metatarsal and 1st phalanges redemonstrated. Severe arthropathy at the 2nd tarsometatarsal joint, unchanged. 3. Edema and atrophy throughout the intrinsic muscles of the foot which can be seen in diabetic patients. Electronically signed by: Adithya Kuhn MD 12/26/2023 02:16 PM EDT
--- NOTE | ~2023-12-24 | US_ITS ---
EXAMINATION: US TRIPLEX LOWER EXTREMITY, RIGHT CLINICAL INFORMATION: Pain, swelling COMPARISON: None available. TECHNIQUE: Color-flow triplex imaging with spectral analysis and compression Doppler were performed on the right lower extremity. FINDINGS: Respiratory variation, normal compression and augmented flow are noted throughout the right lower extremity. The visualized common femoral vein, superficial femoral vein, profunda femoral vein, popliteal vein and midcalf peroneal and posterior tibial venous segments show no evidence of deep venous thrombosis. There is no Lin's cyst. Multiple enlarged inguinal lymph nodes. There is subcutaneous edema. US/US venous duplex LE RT IMPRESSION: No evidence of deep venous thrombosis involving the right lower extremity. Electronically signed by: Jessica Segal MD 12/24/2023 01:39 PM EDT
--- NOTE | ~2023-12-24 | XR_ITS ---
EXAMINATION: XR FOOT, RIGHT CLINICAL INFORMATION: Redness, swelling and pain. COMPARISON: None available. TECHNIQUE: AP, lateral, and oblique views of the right foot. FINDINGS: Partial amputation of great toe beyond the distal first metatarsal. There is loss of joint space and subchondral large erosive changes second MTP joint likely degenerative arthritis. Osteomyelitis or septic arthritis is considered less likely. The ankle mortise and subtalar joints are normal. There is a large retrocalcaneal enthesophyte. Moderate dorsal distal foot soft tissue swelling is noted. XR/XR foot RT min 3V IMPRESSION: Moderate distal dorsal foot soft tissue swelling. Amputation of great toe beyond the distal first metatarsal. Subchondral erosive change with sclerotic lining likely degenerative arthritic changes. Osteomyelitis or septic arthritis is considered less likely. Large retrocalcaneal enthesophyte. Electronically signed by: Trey Jolly MD 12/24/2023 08:24 PM EDT
[2023-12-24 11:57] VITALS: BP 137/58; PULSE 103; RESP 18; TEMP 36.8; O2SAT 95; BMI 27.2
--- NOTE | 2023-12-24 11:57 | ED.GENADULT ---
HPI - General Adult General Chief complaint: Skin/Abscess/Foreign Body Stated complaint: Swelling R foot, diabetic Time Seen by Provider: 12/24/23 19:00 Source: patient Mode of arrival: ambulatory Limitations: no limitations History of Present Illness HPI narrative: Patient is a 63-year-old male who presents emergency department for evaluation. He reports approximately 3 weeks ago he received his shingles vaccine and flu vaccine. A couple of days later he was feeling generalized malaise and body aches. These symptoms continued, however, 6 days ago he was having a significant cough, feeling lethargic and very fatigued. He noticed redness to his right foot 3 days ago without any known injury, does not know how long it has been red because admittedly he had not really examined foot since being in bed for the past week. Reports he is diabetic and has neuropathy so he does not typically experience any pain. Yesterday he noticed the redness spreading up was anterior lower castillo. He presented to an urgent care for evaluation, reports he had a chest x-ray done at [facility] radiology which was normal. He was prescribed azithromycin from the urgent care and advised to follow-up with PCP. He reports today he is in severe pain in his right foot his re-evaluation. Related Data Home Medications ?Medication ?Instructions ?Recorded ?Confirmed sitagliptin phosphate 25 mg tablet 25 mg PO DAILY 09/27/21 06/12/23 (Januvia) flash glucose sensor (FreeStyle #1 ea 04/10/22 06/12/23 Ella 2 Sensor kit) lisinopril 30 mg tablet 30 mg PO DAILY 04/10/22 06/12/23 fluticasone propionate 50 1 spray intranasal DAILY 07/16/23 mcg/actuation nasal spray,suspension dextroamphetamine-amphetamine 20 20 mg PO DAILY 11/19/23 mg tablet (Adderall) Previous Rx's ?Medication ?Instructions ?Recorded tadalafil 10 mg tablet 10 mg PO DAILY sexual activity 90 12/08/22 days #90 tabs sildenafil 100 mg tablet 100 mg PO ONCE PRN sexual activity 06/12/23 30 days #30 tabs colesevelam 625 mg tablet (WelChol) 1,250 mg (2 x 625 mg) PO BID 90 08/15/23 days #360 tabs Allergies Allergy/AdvReac Type Severity Reaction Status Date / Time No Known Allergies Allergy Verified 12/24/23 12:00 Review of Systems Review of Systems: Yes all other systems are reviewed and are negative [facility] Past Medical History Attestation statement: The following information was validated with the patient. Source: old records reviewed Medical History Fecal incontinence Lower extremity numbness Colitis Diabetic autonomic neuropathy CAD (coronary artery disease) Diabetes HTN (hypertension) Surgical History History of esophagogastroduodenoscopy (EGD) S/P placement of nerve stimulator Hx of discectomy Hx of colonoscopy History of right coronary artery stent placement Family History Family History Father Colon cancer Social History Social History Patient Tobacco Use Status: Former Tobacco user Tobacco use type: Cigarette Smoked in Last 30 Days: No Second Hand Smoke Exposure: No Use of substances other than those prescribed or required for medical reasons: No Advance Directives: No Advance Directives Information Provided: No Do you have a plan to hurt others: No Plan Nutrition Risks: No Nutritional Risk Physical Exam ED Vital Signs: Vital Signs - 24 hr 12/24/23 11:57 12/24/23 19:47 Temperature 98.3 F 99.8 F Pulse Rate 103 H 101 H Respiratory Rate 18 18 Blood Pressure 137/58 L 151/73 H Pulse Oximetry 95 94 Oxygen Delivery Method Room Air Room Air BMI result Body Mass Index 27.2 Appearance: Alert.?Oriented to person, place and time. No acute distress.?Normal affect. Eyes: Pupils equal, round and reactive to light.? ENT: Pharynx normal.?? Neck: Normal inspection.? Neck supple.?? CVS: Heart sounds normal. Normal heart rate and rhythm.? Pulses normal.?? Respiratory: No respiratory distress.? Lung sounds clear to auscultation bilaterally?? Abdomen: Soft and non-tender. Normoactive bowel sounds. ?? Skin: Skin warm and dry.? Normal skin color.? Extremities: No lower extremity edema.? No calf ttp. 2+DP/PT pulse Neuro: Moves all extremities spontaneously. Sensation intact bilaterally. No focal neuro deficits. Ambulates with normal steady gait. Course Course Course Narrative: RME performed by Joycelyn Ferrer PA-C. Patient is a 63 year old assigned male at presenting to the emergency department with right lower leg pain / swelling. Patient states his right lower leg has been bothering him since last night when he noticed significant redness / swelling. Detailed physical exam and review of systems are deferred to the primary special education teacher. Labs and imaging ordered. Patient placed back in the waiting room pending room availability and results. Medications Administered Generic Name Dose Route Start Last Admin Trade Name Freq PRN Reason Stop Dose Admin Sodium Chloride 3 ml 12/25/23 00:00 12/25/23 01:08 0.9 % Sodium Chloride Flush 3 Ml Syringe IVFLUSH Not Given QSHIFT EN Discontinued Medications Generic Name Dose Route Start Last Admin Trade Name Freq PRN Reason Stop Dose Admin Piperacillin Sod/Tazobactam 50 mls @ 100 mls/hr 12/24/23 19:52 12/24/23 21:54 Sod 3.375 gm/ Sodium Chloride IV 12/24/23 20:21 Infused ONCE ONE Infusion Vancomycin HCl 1,250 mg/ 250 mls @ 166.667 mls/hr 12/24/23 22:46 12/25/23 00:35 Sodium Chloride IV 12/25/23 00:15 Not Given ONCE ONE Vancomycin HCl 2,000 mg in 500 mls @ 250 mls/hr 12/24/23 23:15 12/25/23 00:39 Vancomycin/Ns IV 12/25/23 01:14 250 mls/hr ONCE ONE Administration Lactated Ringer's 500 mls @ 500 mls/hr 12/24/23 23:30 12/25/23 00:42 Lr IV 12/25/23 00:29 500 mls/hr .Q1H EN Administration Oxycodone HCl 5 mg 12/24/23 19:52 12/24/23 20:50 Oxycodone Hcl Immed Release 5 Mg Tablet PO 12/24/23 19:53 5 mg ONCE ONE Administration Medical Decision Making Medical Decision Making MDM Narrative: Patient is a 63-year-old male with past medical history of diabetes with neuropathy, hypertension, hypercholesterolemia, ulcerative colitis, CAD with right coronary stent, tobacco use disorder, lumbar radiculopathy presenting to the emergency department for evaluation of pain redness and swelling to the right foot and distal lower extremity as per HPI. Exam findings concerning for cellulitis, obtain a XR to exclude osteomyelitis. Venous duplex ultrasound obtained prior to my assumption of care and is without evidence of DVT. Not consistent with acute arterial occlusion to the lower extremity. He has been experiencing ongoing cough since his vaccinations a few weeks ago, was lung sounds clear at this time, he reports improvement in cough as receiving cough medication with codeine from care yesterday likely colitis, reportedly had normal CXR obtained yesterday will attempt to obtain records from [facility]. Reviewed labs obtained prior to my assumption of care, has a mild leukocytosis of 13.9 left shift, no anemia or thrombocytopenia. Pseudohyponatremia corrected for non-anion gap hyperglycemia of 282, sodium is 136. No BUSTER. Notably elevated inflammatory markers with CRP 17.68 and ESR 59. He does have a history of ulcerative colitis he denies any recent gastrointestinal symptoms; nausea, vomiting, diarrhea, constipation, hematochezia or melena time for abdominal pain. Differential Diagnosis Differential Diagnoses: The differential diagnosis associated with the presentation includes (See narrative above) Admission/Observation Consideration of admission/observation: Escalation of care including admission/observation considered (See narrative above in course narrative for further detail) Consult Healthcare Provider Management of the patient was discussed with: Hospitalist Dr. Taylor - admission for cellulitis of right lower extremity, erosive changes to the 2nd MTP, no localized wound to this area to suggest an acute osteomyelitis, radiologist impression for chronic destructive arthritis Lab Data MDM Lab Attestation statement: I reviewed the patient's lab results. (See narrative above) 12/24/23 12:12 12/24/23 12:12 Labs: Lab Results 12/24/23 Range/Units 12:12 WBC 13.9 H (4.8-10.8) X10*3/uL RBC 5.18 (4.60-5.80) X10*6/uL Hgb 14.3 (14.0-18.0) g/dl Hct 42.5 (42.0-52.0) % MCV 82.0 (80.0-98.0) fL MCH 27.6 (27.0-33.0) pg MCHC 33.6 (31.0-36.0) g/dl RDW 13.1 (11.0-16.0) % Plt Count 259 (160-400) X10*3/uL MPV 9.1 L (9.4-12.4) fL Immature Gran % (Auto) 0.6 H (0.0-0.4) % Neut % (Auto) 74.4 H (45-73) % Lymph % (Auto) 12.3 L (20-40) % [place] % (Auto) 11.9 H (2-11) % Eos % (Auto) 0.5 (0-4) % Baso % (Auto) 0.3 (0-2) % Lymph # (Auto) 1.7 (1.2-4.9) X10*3/uL [place] # (Auto) 1.7 H (0.1-1.2) X10*3/uL Eos # (Auto) 0.1 (0.0-0.4) X10*3/uL Baso # (Auto) 0.0 (0.0-0.2) X10*3/uL Abs Immat Gran (auto) 0.08 H (0.00-0.03) X10*3/uL Absolute Neuts (auto) 10.3 H (2.0-8.3) x10*3/uL Absolute Nucleated RBC 0.000 (0.0-0.012) X10*3/uL Nucleated RBC % (auto) 0.0 (0.0-0.2) /100WBC Smear Tech's Comments VERIFIED ESR 59 H (0-15) MM/HR Sodium 133 L (135-145) mmol/L Potassium 4.2 (3.3-5.1) mmol/L Chloride 97 (96-108) mmol/L Carbon Dioxide 27 (22-29) mmol/L Anion Gap 13 (12-20) BUN 15 (9-16) mg/dL Creatinine 1.11 (0.5-1.4) mg/dL Estim Creat Clear Calc 77.9 Estimated GFR > 60 Random Glucose 282 H (60-115) mg/dL Calcium 9.8 (8.4-10.2) mg/dL Magnesium 1.8 (1.6-2.6) mg/dL Total Bilirubin 1.2 H (0.0-1.0) mg/dL AST 27 (5-37) U/L ALT 26 (0-40) U/L Alkaline Phosphatase 81 (39-117) U/L C-Reactive Protein 17.68 H (< or = 0.50) mg/dL Total Protein 7.7 (6.5-8.0) g/dL Albumin 3.9 (3.5-5.0) g/dL Radiology Impression Discussion of test interpretation with radiology: I have reviewed the radiologist's reading. Radiologist Impression: XR/XR foot RT min 3V IMPRESSION: Moderate distal dorsal foot soft tissue swelling. Amputation of great toe beyond the distal first metatarsal. Subchondral erosive change with sclerotic lining likely degenerative arthritic changes. Osteomyelitis or septic arthritis is considered less likely. Large retrocalcaneal enthesophyte. External Record Review External record reviewed: Outpatient record and Prior outpatient radiology (Two-view CXR at [facility]) FINDINGS: LINES AND TUBES: None. LUNGS AND PLEURA: Clear lungs. Normal pulmonary vascularity. No pleural effusion. No pneumothorax. HEART, MEDIASTINUM AND YVON: Heart is normal in size. Normal mediastinal and hilar contour. BONES AND SOFT TISSUES: No acute abnormality. Evidence of remote surgery in the lower cervical spine. IMPRESSION: No acute abnormality. Chronic Conditions Patient?s care impacted by: Diabetes and Other (PAD) Discharge Plan Discharge Clinical Impression: Cellulitis, Bronchitis Patient Disposition: Admitted As Inpatient
[2023-12-24 12:31] LABS: Basophils Percent Auto 0.3 % (0-2); Eosinophils Absolute Auto 0.1 X10*3/uL (0.0-0.4); Eosinophils Percent Auto 0.5 % (0-4); Hematocrit 42.5 % (42.0-52.0); Hemoglobin 14.3 g/dl (14.0-18.0); Imm Gran Abs Auto 0.08 X10*3/uL (0.00-0.03); Imm Gran Pct Auto 0.6 % (0.0-0.4); Lymphocytes Absolute Auto 1.7 X10*3/uL (1.2-4.9); Lymphocytes Percent Auto 12.3 % (20-40); MANUAL DIFF FLAG SCAN; Mean Corpuscular HGB Conc 33.6 g/dl (31.0-36.0); Mean Corpuscular Hemoglobin 27.6 pg (27.0-33.0); Mean Platelet Volume 9.1 fL (9.4-12.4); Monocytes Absolute Auto 1.7 X10*3/uL (0.1-1.2); Monocytes Percent Auto 11.9 % (2-11); Neutrophils Absolute Auto 10.3 x10*3/uL (2.0-8.3); Neutrophils Percent Auto 74.4 % (45-73); Platelet Count 259 X10*3/uL (160-400); Red Blood Count 5.18 X10*6/uL (4.60-5.80); Red Cell Distribution Width 13.1 % (11.0-16.0); SCAN SMEAR FLAG 1; White Blood Count 13.9 X10*3/uL (4.8-10.8)
[2023-12-24 12:41] LABS: Alanine Aminotransferase 26 U/L (0-40); Albumin Level 3.9 g/dL (3.5-5.0); Alkaline Phosphatase 81 U/L (39-117); Anion Gap 13 (12-20); Aspartate Amino Transferase 27 U/L (5-37); Bilirubin Total 1.2 mg/dL (0.0-1.0); Blood Urea Nitrogen 15 mg/dL (9-16); C Reactive Protein 17.68 mg/dL (< or = 0.50); Calcium 9.8 mg/dL (8.4-10.2); Carbon Dioxide 27 mmol/L (22-29); Chloride 97 mmol/L (96-108); Creatinine Clr Calc Pharmacy 77.9; Estimated Glomerular Filt Rate > 60; Glucose Random 282 mg/dL (60-115); Magnesium 1.8 mg/dL (1.6-2.6); Potassium 4.2 mmol/L (3.3-5.1); Sodium 133 mmol/L (135-145); Total Protein 7.7 g/dL (6.5-8.0)
[2023-12-24 13:09] LABS: Erythrocyte Sedimentation Rate 59 MM/HR (0-15)
[2023-12-24 13:15] LABS: SLIDE REVIEW VERIFIED
--- NOTE | 2023-12-24 17:26 | PC.NURSE ---
pt approached the triage door to state that he needs to leave, that he cannot stay any longer. pt reported that its not the waiting he stated that he doesn't have his cough medicine or his inhaler and every time he sits down a kid is coughing in his face . Joycelyn and this RN attempted to have pt stay d/t serious injury and/or is he leaves. pt reports I need to leave . pt requesting his records to he can take them somewhere else
[2023-12-24 19:47] VITALS: BP 151/73; PULSE 101; RESP 18; TEMP 37.7; O2SAT 94
[2023-12-24] MEDS: oxyCODONE HCl Immed Release 5 MG TABLET PO (20:50)
[2023-12-24] MEDS: Piperacillin Sodium/Tazobactam 3.375 GM in 0.9 % Sodium Chloride 50 ML IV (20:50)
--- NOTE | 2023-12-24 22:47 | P.HPHOSP_ITS ---
History of Present Illness Date of Service: 12/24/23 Chief Complaint: Right lower extremity redness This is a 63-year-old male with pertinent history of hypertension, zdt-uzylehz-rfhjotfve diabetes mellitus with peripheral neuropathy, PAD status post right toe amputation, CAD status post stent, chronic back pain who presents to the emergency department for concerns of right lower extremity infection. Patient states started having cough about 6-7 days ago and was seen at [facility] but his imaging was negative and he was told that he does not have a bacterial pneumonia. Three days prior to presentation he noticed right lower extremity redness and warmth. This was progressive and progressed from the foot to mid leg of the right lower extremity. Also has been chills but no documented fever. No nausea or vomiting. No abdominal pain, chest pain, palpitations, changes in urinary or bowel habits. In the emergency department, patient was found to be septic and imaging concerning for soft tissue swelling. Review of Systems 2 Constitutional: Constitutional: Reports chills Cardiovascular: Cardiovascular: Reports no additional cardiovascular complaints Respiratory: Respiratory: Reports cough Gastrointestinal: Gastrointestinal: Reports no additional gastrointestinal complaints Genitourinary: Genitourinary: Reports no additional male genitourinary complaints [facility] Medical History Fecal incontinence Lower extremity numbness Colitis Diabetic autonomic neuropathy CAD (coronary artery disease) Diabetes HTN (hypertension) Family History Father Colon cancer Surgical History History of esophagogastroduodenoscopy (EGD) S/P placement of nerve stimulator Hx of discectomy Hx of colonoscopy History of right coronary artery stent placement Social History Patient Tobacco Use Status: Former Tobacco user Tobacco use type: Cigarette Second Hand Smoke Exposure: No Advance Directives: No Advance Directives Information Provided: No Do you have a plan to hurt others: No Plan Meds Allergies Allergy/AdvReac Type Severity Reaction Status Date / Time No Known Allergies Allergy Verified 12/24/23 12:00 Home Medications ?Medication ?Instructions ?Recorded ?Confirmed ?Last Taken ?Type sitagliptin phosphate 25 mg tablet 25 mg PO DAILY 09/27/21 06/12/23 Unknown History (Januvia) flash glucose sensor (FreeStyle #1 ea 04/10/22 06/12/23 Unknown History Ella 2 Sensor kit) lisinopril 30 mg tablet 30 mg PO DAILY 04/10/22 06/12/23 Unknown History fluticasone propionate 50 1 spray intranasal DAILY 07/16/23 Unknown History mcg/actuation nasal spray,suspension dextroamphetamine-amphetamine 20 20 mg PO DAILY 11/19/23 Unknown History mg tablet (Adderall) Physical Exam 2 Vital Signs and Narrative: Vital Signs: Last Vital Signs Temp 99.8 F 12/24/23 19:47 Pulse 101 H 12/24/23 19:47 Resp 18 12/24/23 19:47 BP 151/73 H 12/24/23 19:47 Pulse Ox 94 12/24/23 19:47 O2 Del Method Room Air 12/24/23 19:47 BMI result Body Mass Index 27.2 Middle-aged male lying in bed in no distress Neck supple, no JVD Regular rate and rhythm, S1-S2 heard Regular breath sounds bilaterally, no wheezing or crackles appreciated Abdomen soft nontender, no guarding, no rigidity Patient is awake, alert and oriented to self, place, time and person ; no focal motor deficit Psych: Normal mood Right lower extremity with erythema, warmth and tenderness ; great toe amputation seen Results Labs 12/24/23 12:12 12/24/23 12:12 Labs: Laboratory Results - last 24 hr 12/24/23 12:12 MCV 82.0 MCH 27.6 MCHC 33.6 RDW 13.1 Plt Count 259 MPV 9.1 L Immature Gran % (Auto) 0.6 H Neut % (Auto) 74.4 H Lymph % (Auto) 12.3 L [place] % (Auto) 11.9 H Eos % (Auto) 0.5 Baso % (Auto) 0.3 Lymph # (Auto) 1.7 [place] # (Auto) 1.7 H Eos # (Auto) 0.1 Baso # (Auto) 0.0 Abs Immat Gran (auto) 0.08 H Absolute Neuts (auto) 10.3 H Absolute Nucleated RBC 0.000 Nucleated RBC % (auto) 0.0 Smear Tech's Comments VERIFIED ESR 59 H Anion Gap 13 Estim Creat Clear Calc 77.9 Estimated GFR > 60 Random Glucose 282 H Calcium 9.8 Magnesium 1.8 Total Bilirubin 1.2 H AST 27 ALT 26 Alkaline Phosphatase 81 C-Reactive Protein 17.68 H Total Protein 7.7 Albumin 3.9 Imaging Radiologist's Impressions: Impressions Venous Duplex 12/24/23 12:22 IMPRESSION: No evidence of deep venous thrombosis involving the right lower extremity. Electronically signed by: Jessica Segal MD 12/24/2023 01:39 PM EDT RP Foot X-Ray 12/24/23 20:01 IMPRESSION: Moderate distal dorsal foot soft tissue swelling. Amputation of great toe beyond the distal first metatarsal. Subchondral erosive change with sclerotic lining likely degenerative arthritic changes. Osteomyelitis or septic arthritis is considered less likely. Large retrocalcaneal enthesophyte. Electronically signed by: Trey Jolly MD 12/24/2023 08:24 PM EDT RP Assessment and Plan (1) Cellulitis: Status: Acute Plan This is a 63-year-old male with pertinent history of hypertension, alu-hwoqvno-tjzrdmevl diabetes mellitus with peripheral neuropathy, PAD status post right toe amputation, CAD status post stent, chronic back pain, ulcerative colitis who presents to the emergency department for concerns of right lower extremity infection #. Sepsis due to right lower extremity cellulitis: Resuscitated with IV crystalloids. Initiating empiric IV vancomycin. Monitor for improvement. Lactic acid and blood culture obtained. Obtaining MRI to rule out osteomyelitis #. Cough: Was seen at [facility] and imaging negative. Will repeat chest x-ray. Likely viral bronchitis pending imaging. Marichuy p.r.n. #. Ekz-bwqghph-pgefhywry diabetes mellitus with hyperglycemia and peripheral neuropathy: Initiating Accu-Cheks with sliding scale insulin #. CAD: On statin and ?antiplatelet agent #. Hypertension: Continue home antihypertensives Med rec pending DVT prophylaxis: Lovenox Full code Admit as inpatient and will require two night minimum hospital stay for IV antibiotics (as above), which is not possible in a lesser acute setting. Quality Stroke Does the patient have a stroke diagnosis?: No VTE Prior VTE?: No VTE Risk Level:: Medical - moderate - high VTE Device Contraindication: Treatment Not Indicated VTE Drug Contraindication: N/A - Med Ordered
[2023-12-24 22:50] VITALS: BP 129/62; PULSE 82; RESP 15; TEMP 36.9; O2SAT 93
[2023-12-25] VITALS (7 sets, daily range): BP systolic 124–175; BP diastolic 59–74; PULSE 74–99; RESP 12–20; TEMP 36.1–37.7; O2SAT 93–97; BMI 27.0
--- NOTE | 2023-12-25 00:04 | PC.NURSE ---
med delayed d/t obtaining blood cultures first
--- NOTE | 2023-12-25 00:28 | PC.NURSE ---
pt requesting water and ear plugs. no ear plugs available at this time. took 4 empty water cups and gave 2 more full cups of water per request. pt resting comfortably on stretcher.
[2023-12-25] MEDS: vancomycin/NS 2,000 MG/500 ML PLAST..BAG 250 MG IV (00:39)
[2023-12-25] MEDS: Lactated Ringers 500 ML IV (00:42)
--- NOTE | 2023-12-25 01:12 | PC.NURSE ---
pt ambulated to bathroom with walker, gait slow and steady . reports he does not use at home but wants to be safe now since he was given pain medicine. hospitalist at bedside at this time
--- NOTE | 2023-12-25 01:29 | PC.NURSE ---
pt sitting in edge of bed stating i can't do this pt wants to leave, report given to overflow RN
[2023-12-25 02:08] LABS: Glucose, Whole Blood 221 mg/dL (60-115)
[2023-12-25] MEDS: Insulin Lispro 100 UNIT/ML 3 ML VIAL SUBCUT ×4 (02:12→20:45)
--- NOTE | 2023-12-25 04:21 | PC.NURSE ---
Patient transferred to overflow bed 3 at about 1:50 am. Patient alert and oriented, patient reporting he is very upset with the care he has gotten in the ED. Patient reports he was not updated with any results from any testing/labs that have been done and he had to go on his own patient portal to find out any information and results. Patient reports he is a diabetic and no one has checked his sugar all day, reporting he has asked for snack/water multiple times. Patient reports he will leave and go home because he is not happy with the care he has gotten. POC taken and insulin given per sliding scale per may, snack offered. Patient reporting pain but refusing to take pain medication at this time. Patient ambulated with cane and standby assist to bathroom, gait slightly unsteady due to pain in the right lower extremity. Educated patient on safety and high fall risk precautions, patient refusing bed alarm. Patient educated on plan for MRI of right foot for tomorrow. Clinical coordinator Sandy at patient's bedside.
[2023-12-25 05:17] LABS: Basophils Absolute Auto 0.1 X10*3/uL (0.0-0.2); Basophils Percent Auto 0.4 % (0-2); Eosinophils Absolute Auto 0.1 X10*3/uL (0.0-0.4); Eosinophils Percent Auto 0.7 % (0-4); Hematocrit 37.7 % (42.0-52.0); Hemoglobin 12.7 g/dl (14.0-18.0); Imm Gran Abs Auto 0.08 X10*3/uL (0.00-0.03); Imm Gran Pct Auto 0.5 % (0.0-0.4); Lymphocytes Absolute Auto 2.2 X10*3/uL (1.2-4.9); Lymphocytes Percent Auto 13.6 % (20-40); MANUAL DIFF FLAG SCAN; Mean Corpuscular HGB Conc 33.7 g/dl (31.0-36.0); Mean Corpuscular Hemoglobin 27.4 pg (27.0-33.0); Mean Corpuscular Volume 81.4 fL (80.0-98.0); Mean Platelet Volume 9.1 fL (9.4-12.4); Monocytes Absolute Auto 1.7 X10*3/uL (0.1-1.2); Monocytes Percent Auto 10.8 % (2-11); Neutrophils Absolute Auto 11.8 x10*3/uL (2.0-8.3); Platelet Count 239 X10*3/uL (160-400); Red Blood Count 4.63 X10*6/uL (4.60-5.80); Red Cell Distribution Width 13.1 % (11.0-16.0); SCAN SMEAR FLAG 1; White Blood Count 15.9 X10*3/uL (4.8-10.8)
[2023-12-25 05:35] LABS: Anion Gap 12 (12-20); Blood Urea Nitrogen 11 mg/dL (9-16); Calcium 9.1 mg/dL (8.4-10.2); Carbon Dioxide 25 mmol/L (22-29); Chloride 100 mmol/L (96-108); Creatinine Clr Calc Pharmacy 100.6; Estimated Glomerular Filt Rate > 60; Glucose Random 155 mg/dL (60-115); Sodium 134 mmol/L (135-145)
[2023-12-25 05:36] LABS: SLIDE REVIEW VERIFIED
--- NOTE | 2023-12-25 06:22 | PHA.PROG ---
Admission Date/Time: December 24, 2023 22:46 Indication: Sepsis Weight in k.4 kg Adjusted body weight in Kg: [place] body weight in Kg: Obesity Dosing Indication % IBW: Serum Creatinine - Last 168 Hours 12/24/23 12/25/23 12:12 04:10 Creatinine 1.11 0.86 Estimated CrCl and GFR - Last 168 Hours 12/24/23 12/25/23 12:12 04:10 Estim Creat Clear Calc 77.9 100.6 Estimated GFR > 60 > 60 Vancomycin Loading Dose: 2000 mg Current Vancomycin Dosing Regimen: Vancomycin Monitoring using AUC goal of 400 - 600 range with trough as surrogate marker: 561 mg/L Date and Time for next Vancomycin Level to be drawn: 12/25 @ 1200 Pharmacist Comments on Vancomycin Plan: Recieved loading dose around 0100 this morning. Will start 1250mg q12h for a projected trough of 17.9 mg/L. Next trough due tomorrow at 1200 Vancomycin dosing will take advantage of [employer] as a clinical decision support tool that uses Bayesian modeling to calculate individual patient's pharmacokinetic parameters and forecast the patient's drug concentration time course with the target goal AUC 24 range of 400 - 600 mg/L/hr.
[2023-12-25 07:51] LABS: Glucose, Whole Blood 207 mg/dL (60-115)
[2023-12-25] MEDS: Enoxaparin Sodium 40 MG/0.4 ML SYRINGE SUBCUT (08:25)
[2023-12-25] MEDS: 0.9 % Sodium Chloride Flush 3 ML SYRINGE IVFLUSH ×2 (08:26→20:49)
--- NOTE | 2023-12-25 09:20 | PHA.MEDREC ---
Pharmacy Consult ? Medication Reconciliation Pharmacy has completed the medication reconciliation. Spoke to patient at bedside, able to name all medications and doses unprompted; noted he hasn't had his Januvia in two weeks and never started his cefdinir RX. Also takes fiber chews but not added to med rec due to auto DC policy. Has three doses left of azithromycin RX.
[2023-12-25] MEDS: Azithromycin 250 MG TABLET PO (10:54)
[2023-12-25] MEDS: SITagliptin Phosphate 25 MG TABLET PO (10:54)
[2023-12-25] MEDS: oxyCODONE HCl Immed Release 5 MG TABLET PO ×2 (11:07→18:00)
[2023-12-25 11:26] LABS: Glucose, Whole Blood 230 mg/dL (60-115)
--- NOTE | 2023-12-25 11:31 | PC.NURSE ---
patient refusing bed and chair alarms even though he stated that he feels unsteady with ambulation . Patient educated on the significance adhering to this fall prevention measure, but patient still refuses. Patient agreed to use call hooper before attempting to ambulate. MD notified
--- NOTE | 2023-12-25 11:52 | MHC.CM.PN ---
Patient lives in a home w/ and 2 adult children. Functionally independent, but uses cane PRN. No current services, has used [facility] in the past for IV abx. PCP Lucho VANEGAS @ [facility] No HCP. CM provided education and offered assistance. Patient declined. DP: MRI pending, r/o osteo. Goal is home w/ [facility] for SN. Referral sent via [facility]. Family to transport. CM will continue to follow.
--- NOTE | 2023-12-25 12:03 | HO.PM.IMPN ---
Subjective Subjective Date of Service: 12/25/23 Interval History: Right foot erythema worse Physical Exam Vital Signs: Vital Signs: Last Vital Signs Temp 97.7 F 12/25/23 11:03 Pulse 81 12/25/23 11:03 Resp 16 12/25/23 11:03 BP 145/69 H 12/25/23 11:03 Pulse Ox 97 12/25/23 11:03 O2 Del Method Room Air 12/25/23 11:03 BMI result Body Mass Index 27.0 General: AO X 3, no acute distress Resp: CTA bilateral, no accessory muscles used CVS: S1,S2,RRR GI: soft, non tender, non distended Neuro: motor grossly intact, alert Psych: appropriate affect, appropriate insight rle ertyhema, swelling Objective Data Active Medications Acetaminophen (Acetaminophen 325 Mg Tablet) 650 mg PO Q6H PRN PRN Reason: Pain, Mild (Pain Scale 1-3), fever or headache Albuterol/Ipratropium (Albuterol/Iprat 2.5/0.5mg 3 Ml Ampul.Neb) 3 ml INHALE RQ4H WHILE AWAKE [facility] Last Admin: 12/25/23 11:08 Dose: Not Given Documented By: ELPIDIO Non-Admin Reason: Patient Refused Albuterol/Ipratropium (Albuterol/Iprat 2.5/0.5mg 3 Ml Ampul.Neb) 3 ml INHALE Q4H PRN PRN Reason: Wheezing Azithromycin (Azithromycin 250 Mg Tablet) 250 mg PO DAILY [facility] Last Admin: 12/25/23 10:54 Dose: 250 mg Documented By: LOUANNTEKGabe Benzonatate (Benzonatate 100 Mg Capsule) 200 mg PO TID PRN PRN Reason: Cough Calcium Carbonate (Calcium Carbonate 750 Mg Tab.Chew) 750 mg PO Q4H PRN PRN Reason: Heartburn Enoxaparin Sodium (Enoxaparin Sodium 40 Mg/0.4 Ml Syringe) 40 mg SUBCUT Q24H [facility] Last Admin: 12/25/23 08:25 Dose: 40 mg Documented By: MEET Glucose (Glucose Gel 15 Gm Gel..Gram.) 15 gm PO Q15M PRN; Protocol PRN Reason: per Hypoglycemia Standing Ord. Dextrose (D10) 250 mls @ 750 mls/hr IV Q15M PRN; Protocol PRN Reason: per Hypoglycemia Standing Ord. Vancomycin HCl 1,250 mg/ (Sodium Chloride) 250 mls @ 166.667 mls/hr IV Q12H [facility] Insulin Human Lispro (Insulin Lispro 100 Unit/Ml 3 Ml Vial) 0 unit SUBCUT QIDACHS [facility]; Protocol Last Admin: 12/25/23 12:01 Dose: 4 unit Documented By: JESUS Lisinopril (Lisinopril 10 Mg Tablet) 30 mg PO DAILY [facility]; Protocol Magnesium Hydroxide (Milk Of Magnesia 30 Ml Oral.Susp) 30 ml PO DAILY PRN PRN Reason: Constipation Melatonin (Melatonin 3 Mg Tablet) 6 mg PO BEDTIME PRN PRN Reason: Insomnia Ondansetron HCl (Ondansetron Hcl 4 Mg/2 Ml Vial) 4 mg IVPUSH Q8H PRN PRN Reason: Nausea and Vomiting Oxycodone HCl (Oxycodone Hcl Immed Release 5 Mg Tablet) 5 mg PO Q6H PRN PRN Reason: Pain, Severe (Pain Scale 7-10) Last Admin: 12/25/23 11:07 Dose: 5 mg Documented By: JESUS Pharmacy Consult (Consult Rx Vancomycin Dosing) 1 each MISCELLANE DAILY PRN PRN Reason: Consult order Sitagliptin Phosphate (Sitagliptin Phosphate 25 Mg Tablet) 25 mg PO DAILY [facility] Last Admin: 12/25/23 10:54 Dose: 25 mg Documented By: JESUS Sodium Chloride (0.9 % Sodium Chloride Flush 3 Ml Syringe) 3 ml IVFLUSH QSHIFT [facility] Last Admin: 12/25/23 08:26 Dose: 3 ml Documented By: BROB Labs 12/25/23 04:10 12/25/23 04:10 Labs: Laboratory Results - last 24 hr 12/24/23 12/25/23 12/25/23 12:12 00:15 02:04 MCV 82.0 MCH 27.6 MCHC 33.6 RDW 13.1 Plt Count 259 MPV 9.1 L Immature Gran % (Auto) 0.6 H Neut % (Auto) 74.4 H Lymph % (Auto) 12.3 L [place] % (Auto) 11.9 H Eos % (Auto) 0.5 Baso % (Auto) 0.3 Lymph # (Auto) 1.7 [place] # (Auto) 1.7 H Eos # (Auto) 0.1 Baso # (Auto) 0.0 Abs Immat Gran (auto) 0.08 H Absolute Neuts (auto) 10.3 H Absolute Nucleated RBC 0.000 Nucleated RBC % (auto) 0.0 Smear Tech's Comments VERIFIED ESR 59 H Anion Gap 13 Estim Creat Clear Calc 77.9 Estimated GFR > 60 POC Glucose 221 H Random Glucose 282 H Lactic Acid 1.0 Calcium 9.8 Magnesium 1.8 Total Bilirubin 1.2 H AST 27 ALT 26 Alkaline Phosphatase 81 C-Reactive Protein 17.68 H Total Protein 7.7 Albumin 3.9 12/25/23 12/25/23 12/25/23 04:10 07:48 11:22 MCV 81.4 MCH 27.4 MCHC 33.7 RDW 13.1 Plt Count 239 MPV 9.1 L Immature Gran % (Auto) 0.5 H Neut % (Auto) 74.0 H Lymph % (Auto) 13.6 L [place] % (Auto) 10.8 Eos % (Auto) 0.7 Baso % (Auto) 0.4 Lymph # (Auto) 2.2 [place] # (Auto) 1.7 H Eos # (Auto) 0.1 Baso # (Auto) 0.1 Abs Immat Gran (auto) 0.08 H Absolute Neuts (auto) 11.8 H Absolute Nucleated RBC 0.000 Nucleated RBC % (auto) 0.0 Smear Tech's Comments VERIFIED ESR Anion Gap 12 Estim Creat Clear Calc 100.6 Estimated GFR > 60 POC Glucose 207 H 230 H Random Glucose 155 H Lactic Acid Calcium 9.1 D Magnesium Total Bilirubin AST ALT Alkaline Phosphatase C-Reactive Protein Total Protein Albumin Assessment and Plan (1) Cellulitis: Status: Acute Plan 63M PMH hypertension, diabetes, peripheral neuropathy, peripheral vascular disease status post right toe amputation, coronary artery disease status post stent, chronic back pain, ulcerative colitis presented with right lower extremity swelling and erythema Sepsis due to right lower extremity cellulitis Continue IV vancomycin, follow up cultures, MRI to rule out osteomyelitis given elevated ESR and CRP Diabetes with hyperglycemia Continue insulin sliding scale Coronary artery disease/ pvd Continue aspirin Ulcerative colitis Not currently on meds Hypertension Lisinopril DVT prophylaxis with Lovenox Full Code reason for continued hospitalization: Needing IV antibiotics for significant cellulitis in a diabetic Quality Stroke Does the patient have a stroke diagnosis?: No VTE Prior VTE?: No VTE Risk Level:: Medical - moderate - high VTE Device Contraindication: Treatment Not Indicated VTE Drug Contraindication: N/A - Med Ordered
[2023-12-25] MEDS: vancomycin HCL 1,250 MG in 0.9 % Sodium Chloride 250 ML 166.67 MG IV (15:07)
--- NOTE | 2023-12-25 15:32 | PC.RT ---
Pt refused svn, states has nebulizer and MDI at home as recent addition but has not needed them. Dr. Whitman aware, pt will call if he wants svn. Nursing aware.
[2023-12-25 16:43] LABS: Glucose, Whole Blood 158 mg/dL (60-115)
[2023-12-25] MEDS: Benzonatate 100 MG CAPSULE 200 MG PO (18:04)
[2023-12-25 20:21] LABS: Glucose, Whole Blood 201 mg/dL (60-115)
[2023-12-25] MEDS: Melatonin 3 MG TABLET 6 MG PO (20:45)
[2023-12-26] MEDS: oxyCODONE HCl Immed Release 5 MG TABLET PO ×2 (01:54→10:24)
[2023-12-26] MEDS: vancomycin HCL 1,250 MG in 0.9 % Sodium Chloride 250 ML 166.67 MG IV (01:55)
[2023-12-26 04:00] VITALS: BP 131/63; PULSE 78; RESP 12; TEMP 36.6; O2SAT 93
[2023-12-26 06:58] LABS: Anion Gap 12 (12-20); Blood Urea Nitrogen 11 mg/dL (9-16); Calcium 8.9 mg/dL (8.4-10.2); Carbon Dioxide 26 mmol/L (22-29); Chloride 100 mmol/L (96-108); Creatinine Clr Calc Pharmacy 110.9; Estimated Glomerular Filt Rate > 60; Glucose Fasting 177 mg/dL (60-99); Potassium 3.2 mmol/L (3.3-5.1); Sodium 135 mmol/L (135-145)
[2023-12-26 07:00] LABS: Hematocrit 35.3 % (42.0-52.0); Hemoglobin 11.8 g/dl (14.0-18.0); Mean Corpuscular HGB Conc 33.4 g/dl (31.0-36.0); Mean Corpuscular Hemoglobin 27.4 pg (27.0-33.0); Mean Corpuscular Volume 82.1 fL (80.0-98.0); Mean Platelet Volume 9.4 fL (9.4-12.4); Platelet Count 234 X10*3/uL (160-400); Red Cell Distribution Width 13.2 % (11.0-16.0); White Blood Count 15.1 X10*3/uL (4.8-10.8)
[2023-12-26 07:03] VITALS: BP 133/63; PULSE 74; RESP 17; TEMP 36.4; O2SAT 92
[2023-12-26 07:24] LABS: Glucose, Whole Blood 174 mg/dL (60-115)
--- NOTE | 2023-12-26 07:40 | PC.RT ---
Pt stated did not want svn, would call. MD is aware.
[2023-12-26] MEDS: Enoxaparin Sodium 40 MG/0.4 ML SYRINGE SUBCUT (07:52)
[2023-12-26] MEDS: Insulin Lispro 100 UNIT/ML 3 ML VIAL SUBCUT ×4 (07:53→20:27)
[2023-12-26] MEDS: Aspirin Enteric Coated 81 MG TABLET.DR PO (07:53)
[2023-12-26] MEDS: lisinopriL 10 MG TABLET 30 MG PO (07:53)
[2023-12-26] MEDS: SITagliptin Phosphate 25 MG TABLET PO (07:53)
[2023-12-26] MEDS: Azithromycin 250 MG TABLET PO (07:53)
[2023-12-26] MEDS: Benzonatate 100 MG CAPSULE 200 MG PO ×2 (07:58→17:53)
--- NOTE | 2023-12-26 08:01 | P.CDIM_ITS ---
PROVIDER RESPONSE TEXT: To clarify, the appropriate diagnosis supported by the clinical indicators: Cellulitis right lower extremity due to/associated with Diabetes mellitus: suspected QUERY TEXT: PHYSICIAN'S DOCUMENTATION REQUEST Date of Query: 12/26/2023 07:46 AM EDT Patient Name: Inocente Barnard Admit Date: 12/25/2023 Dear Romero Whitman MD, A review of the medical record indicates additional documentation may be needed. Please review below and update the documentation accordingly. Clinical Indicators: Sepsis due to right lower extremity cellulitis, diabetes with hyperglycemia. Right lower extremity redness and warmth. This was progressive and progressed from the foot to mid leg of the right lower extremity. Had chills, found to be septic and imaging concerning for soft tissue swelling. Please clarify the following regarding the linking of two diagnosis: Cellulitis right lower extremity due to/associated with Diabetes mellitus possible, probable, suspected, etc. Cellulitis is not related to the Diabetes Other (explain) Clinically unable to determine (explain) Thank you, Betsey Muniz, CCS, CDIS Use of terms such as suspected, likely, concern for, or probable (associated with a specific diagnosi s that is being evaluated, monitored, or treated as if it exists) are acceptable and can be coded in the inpatient se tting, when documented at the time of discharge. Please use your independent medical judgment in providing your response. THIS QUERY IS PART OF THE PERMANENT MEDICAL RECORD
--- NOTE | 2023-12-26 09:12 | P.PNIM_ITS ---
Subjective Subjective Date of Service: 12/26/23 Interval History: Right lower extremity blister opened Physical Exam 2 Vital Signs: Vital Signs: Last Vital Signs Temp 97.6 F 12/26/23 07:03 Pulse 74 12/26/23 07:03 Resp 17 12/26/23 07:03 BP 133/63 12/26/23 07:03 Pulse Ox 92 12/26/23 07:03 O2 Del Method Room Air 12/26/23 07:03 BMI result Body Mass Index 27.0 Still with right lower extremity swelling and erythema, blister appears to have opened Objective Data Active Medications Acetaminophen (Acetaminophen 325 Mg Tablet) 650 mg PO Q6H PRN PRN Reason: Pain, Mild (Pain Scale 1-3), fever or headache Albuterol/Ipratropium (Albuterol/Iprat 2.5/0.5mg 3 Ml Ampul.Neb) 3 ml INHALE Q4H PRN PRN Reason: Wheezing Aspirin (Aspirin Enteric Coated 81 Mg Tablet.) 81 mg PO DAILY [facility] Last Admin: 12/26/23 07:53 Dose: 81 mg Documented By: JESUS Azithromycin (Azithromycin 250 Mg Tablet) 250 mg PO DAILY [facility] Last Admin: 12/26/23 07:53 Dose: 250 mg Documented By: JESUS Benzonatate (Benzonatate 100 Mg Capsule) 200 mg PO TID PRN PRN Reason: Cough Last Admin: 12/26/23 07:58 Dose: 200 mg Documented By: JESUS Calcium Carbonate (Calcium Carbonate 750 Mg Tab.Chew) 750 mg PO Q4H PRN PRN Reason: Heartburn Enoxaparin Sodium (Enoxaparin Sodium 40 Mg/0.4 Ml Syringe) 40 mg SUBCUT Q24H [facility] Last Admin: 12/26/23 07:52 Dose: 40 mg Documented By: JESUS Glucose (Glucose Gel 15 Gm Gel..Gram.) 15 gm PO Q15M PRN; Protocol PRN Reason: per Hypoglycemia Standing Ord. Dextrose (D10) 250 mls @ 750 mls/hr IV Q15M PRN; Protocol PRN Reason: per Hypoglycemia Standing Ord. Vancomycin HCl 1,250 mg/ (Sodium Chloride) 250 mls @ 166.667 mls/hr IV Q12H [facility] Last Infusion: 12/26/23 05:14 Dose: Infused Documented By: VIRGINIE Insulin Human Lispro (Insulin Lispro 100 Unit/Ml 3 Ml Vial) 0 unit SUBCUT QIDACHS [facility]; Protocol Last Admin: 12/26/23 07:53 Dose: 2 unit Documented By: JESUS Lisinopril (Lisinopril 10 Mg Tablet) 30 mg PO DAILY [facility]; Protocol Last Admin: 12/26/23 07:53 Dose: 30 mg Documented By: JESUS Magnesium Hydroxide (Milk Of Magnesia 30 Ml Oral.Susp) 30 ml PO DAILY PRN PRN Reason: Constipation Melatonin (Melatonin 3 Mg Tablet) 6 mg PO BEDTIME PRN PRN Reason: Insomnia Last Admin: 12/25/23 20:45 Dose: 6 mg Documented By: VIRGINIE Ondansetron HCl (Ondansetron Hcl 4 Mg/2 Ml Vial) 4 mg IVPUSH Q8H PRN PRN Reason: Nausea and Vomiting Oxycodone HCl (Oxycodone Hcl Immed Release 5 Mg Tablet) 5 mg PO Q6H PRN PRN Reason: Pain, Severe (Pain Scale 7-10) Last Admin: 12/26/23 01:54 Dose: 5 mg Documented By: VIRGINIE Pharmacy Consult (Consult Rx Vancomycin Dosing) 1 each MISCELLANE DAILY PRN PRN Reason: Consult order Sitagliptin Phosphate (Sitagliptin Phosphate 25 Mg Tablet) 25 mg PO DAILY [facility] Last Admin: 12/26/23 07:53 Dose: 25 mg Documented By: JESUS Sodium Chloride (0.9 % Sodium Chloride Flush 3 Ml Syringe) 3 ml IVFLUSH QSHIFT [facility] Last Admin: 12/25/23 20:49 Dose: 3 ml Documented By: VIRGINIE Labs 12/26/23 06:20 12/26/23 06:20 Labs: Laboratory Results - last 24 hr 12/25/23 12/25/23 12/25/23 11:22 16:35 20:17 MCV MCH MCHC RDW Plt Count MPV Absolute Nucleated RBC Nucleated RBC % (auto) Anion Gap Estim Creat Clear Calc Estimated GFR POC Glucose 230 H 158 H 201 H Fasting Glucose Calcium 12/26/23 12/26/23 06:20 07:06 MCV 82.1 MCH 27.4 MCHC 33.4 RDW 13.2 Plt Count 234 MPV 9.4 Absolute Nucleated RBC 0.000 Nucleated RBC % (auto) 0.0 Anion Gap 12 Estim Creat Clear Calc 110.9 Estimated GFR > 60 POC Glucose 174 H Fasting Glucose 177 H Calcium 8.9 Microbiology Microbiology Results: Microbiology 12/25/23 00:15 Blood Culture - Preliminary Blood - Venous No growth after 24 hours. 12/25/23 00:15 Blood Culture - Preliminary Blood - Venous No growth after 24 hours. Assessment and Plan (1) Cellulitis: Status: Acute Plan 63M PMH hypertension, diabetes, peripheral neuropathy, peripheral vascular disease status post right toe amputation, coronary artery disease status post stent, chronic back pain, ulcerative colitis presented with right lower extremity swelling and erythema Sepsis due to right lower extremity cellulitis Continue IV vancomycin, follow up cultures, MRI to rule out osteomyelitis given elevated ESR and CRP Wound care Diabetes with hyperglycemia Continue insulin sliding scale Coronary artery disease/ pvd Continue aspirin Ulcerative colitis Not currently on meds Hypertension Lisinopril DVT prophylaxis with Lovenox Full Code reason for continued hospitalization: Needing IV antibiotics for significant cellulitis in a diabetic Quality Stroke Does the patient have a stroke diagnosis?: No VTE Prior VTE?: No VTE Risk Level:: Medical - moderate - high VTE Device Contraindication: Treatment Not Indicated VTE Drug Contraindication: N/A - Med Ordered
[2023-12-26 11:21] LABS: Glucose, Whole Blood 170 mg/dL (60-115)
[2023-12-26] MEDS: gadobutroL 10 ML VIAL IVPUSH (13:14)
[2023-12-26] MEDS: ondansetron HCL 4 MG/2 ML VIAL IVPUSH (13:14)
--- NOTE | 2023-12-26 13:20 | MHC.CM.PN ---
Per rounds, pt is still acute, requiring IV ABX for cellulitis. CM will follow and assist with DC plan.
[2023-12-26 13:55] LABS: Vancomycin Random 9.1 mcg/mL (15-20)
--- NOTE | 2023-12-26 14:09 | HE.PHANOTE ---
VANCO DOSE ADJUSTMENT BASED ON SCR AND TROUGH OF 9.8 DOSE INCREASED TO 1500 Q 12H. NEXT LEVEL 12/26 @ 1200
[2023-12-26] MEDS: vancomycin HCL 1,500 MG in 0.9 % Sodium Chloride 500 ML 333.33 MG IV (15:08)
[2023-12-26 15:42] VITALS: BP 171/78; PULSE 81; RESP 18; TEMP 36.2; O2SAT 94
--- NOTE | 2023-12-26 16:04 | HO.WOUND ---
Wound Consult: Initial 63yr old [place] [facility] [place] - See progress notes and H&P for detailed history.? Wound consult placed for Right Lower Leg wound.? Arrival to bedside patient and were immediately verbally aggressive. They were not open to two way communication. The patient wanted to talk and be heard but did not want to listen to responses from this mortgage underwriter. Active listening provided. Both the patient and his were reminded of [facility] [place] standards of behavior and were kindly asked to speak to staff more appropriately. The patient was encouraged to continue to advocate for himself as well as his but in a way that remains respectful. Patient reported the bed was not satisfactory as his feet were hitting the footboard. The patient was noted to be slid down in bed and was asked to boost in bed so his feet were to not hit the footboard and to notch the knees up to prevent slipping down in bed. He became angry and told me why he felt he was not able to do the mentioned adjustments. Given the patient is not willing to adjust higher in the bed or notch the knees to prevent slipping down in bed an bariatric bed or extra long bed from [employer] will be ordered for him - he and his were made aware of this. The patient and his reported concerns for his wound. The wound was assessed and is detailed below. Right Lower Leg Etiology: ??Cellulitis with now with open wound Measurements: 4cm x 0.6cm x 0.1cm Wound Bed: linear tear due to swelling Drainage / Odor: crusted yellow drainage Edges: ? linear and attached Joann wound: ?Macerated periwound - with red purple shiny tissue , mild fluctuance noted, no Induration noted Pain: mild pain and reports neuropathy Goals of Treatment: ? Moisture management with Durafiber AG Right 3rd toe with stable dry scab and dry skin noted. The lateral area near the malleolus was noted for a stable black scab reports is from his shoe rubbing and the dorsal foot remains intact but with localized red raised area. They were cleansed with Betadine and covered with dry gauze dressing. Recommendations: 1. Monitor for incontinence and moisture control, use barrier creams when needed for prevention and treatment. 2. Provide adequate and supplemental nutrition.? 3. Order speciality extra long bed. 4. Maintain blood glucose levels per Providers order. 5. Right Lower Leg / Felder - Cleanse with NS. apply barrier wipe to periwound. Cover wound bed with Durafiber AG, arik with dry gauze ABD pad and wrap. Change daily while inpatient. 6. Right lateral foot, dorsal foot and 3rd toe - Dell with betadine allow to dry. Cover with dry gauze. Change daily. Re-consult wound care Nurse for wound deterioration or wound changes.
[2023-12-26 16:11] LABS: Glucose, Whole Blood 196 mg/dL (60-115)
--- NOTE | 2023-12-26 16:27 | PC.NURSE ---
Addendum entered by Ronnie Hays RN 12/26/23 17:42: Pt requested to have messages forwarded to MD Whitman after speaking to MD family member. Informed MD Whitman pt is requesting infectious disease consult, K replacement, increased abx dose and more abx coverage to cover gram -, and that hospitalst can consult with family member MD at any time Original Note: pt and pt's stated they need to be updated and need to speak with the MD and risk manager. risk manager and MD informed and arrived to bedside soon afterwards. pt stated he cannot take oxycodone due to it making him agitated. informed, new orders placed. informed of pt's elevated BP.
[2023-12-26] MEDS: HYDROmorphone HCl 2 MG TABLET 1 MG PO (16:31)
[2023-12-26] MEDS: ALPRAZolam 0.25 MG TABLET PO (17:50)
[2023-12-26] MEDS: Potassium Chloride ER 20 MEQ TAB.ER.PRT 40 MEQ PO (17:50)
[2023-12-26 20:00] VITALS: BP 141/67; PULSE 68; RESP 12; TEMP 36.1; O2SAT 95
[2023-12-26 20:13] LABS: Glucose, Whole Blood 155 mg/dL (60-115)
[2023-12-26] MEDS: Melatonin 3 MG TABLET 6 MG PO (20:27)
[2023-12-27] VITALS: BP 142/65; PULSE 76; RESP 12; TEMP 36.8; O2SAT 93
[2023-12-27] MEDS: HYDROmorphone HCl 2 MG TABLET 1 MG PO ×3 (00:39→21:53)
[2023-12-27] MEDS: vancomycin HCL 1,500 MG in 0.9 % Sodium Chloride 500 ML 333.33 MG IV (02:00)
[2023-12-27] MEDS: Benzonatate 100 MG CAPSULE 200 MG PO ×2 (02:16→10:40)
[2023-12-27 04:00] VITALS: BP 151/68; PULSE 74; RESP 14; TEMP 37; O2SAT 93
[2023-12-27 06:15] LABS: Hemoglobin 12.5 g/dl (14.0-18.0); Mean Corpuscular HGB Conc 32.9 g/dl (31.0-36.0); Mean Corpuscular Hemoglobin 27.3 pg (27.0-33.0); Mean Platelet Volume 9.3 fL (9.4-12.4); Platelet Count 295 X10*3/uL (160-400); Red Blood Count 4.58 X10*6/uL (4.60-5.80); Red Cell Distribution Width 13.1 % (11.0-16.0); White Blood Count 11.8 X10*3/uL (4.8-10.8)
[2023-12-27 06:37] LABS: Anion Gap 13 (12-20); Blood Urea Nitrogen 9 mg/dL (9-16); Carbon Dioxide 25 mmol/L (22-29); Chloride 102 mmol/L (96-108); Creatinine Clr Calc Pharmacy 108.1; Estimated Glomerular Filt Rate > 60; Glucose Fasting 171 mg/dL (60-99); Potassium 3.7 mmol/L (3.3-5.1); Sodium 136 mmol/L (135-145)
[2023-12-27 07:29] LABS: Glucose, Whole Blood 160 mg/dL (60-115)
[2023-12-27 07:35] VITALS: BP 150/71; PULSE 70; RESP 18; TEMP 36.2; O2SAT 96
[2023-12-27] MEDS: Enoxaparin Sodium 40 MG/0.4 ML SYRINGE SUBCUT (08:07)
[2023-12-27] MEDS: Aspirin Enteric Coated 81 MG TABLET.DR PO (08:08)
[2023-12-27] MEDS: Insulin Lispro 100 UNIT/ML 3 ML VIAL SUBCUT ×4 (08:09→20:20)
[2023-12-27] MEDS: 0.9 % Sodium Chloride Flush 3 ML SYRINGE IVFLUSH ×3 (08:09→23:40)
[2023-12-27] MEDS: Azithromycin 250 MG TABLET PO (08:09)
[2023-12-27] MEDS: SITagliptin Phosphate 25 MG TABLET PO (08:09)
[2023-12-27] MEDS: ALPRAZolam 0.25 MG TABLET PO ×2 (08:35→21:53)
--- NOTE | 2023-12-27 08:35 | HO.WOUND ---
Addendum entered by Parul Martinez RN 12/27/23 15:52: @10:00am [facility] bed arrived which allows for longer length to bed and no hazard to patient and or staff. Patient placed in bed - direct care team will monitor for sufficiency. Original Note: Wound Consult: Follow up 63yr old Male admitted to [facility] [place] on 12/24/23 - See progress notes and H&P for detailed history.? Wound consult follow up for Right Lower Leg wound.? Arrival to bedside patient immediately began to repeat yesterdays events as he saw them, he is dissatisfied with his care. Dr. Whitman and direct care nurse aware. Active listening provided with attempts to discuss his voiced concerns which he was unwilling to listen to. Still working to get longer bed available to patient. The wound was assessed and is detailed below. 12/26/23 12/27/23 Right Lower Leg Etiology: ??Cellulitis with now with open wound Measurements: 3.5cm x 0.2cm x 0.2cm Wound Bed: linear tear due to swelling Drainage / Odor: yellow serous drainage Edges: ? linear and unattached Joann wound: ?Macerated periwound - with red purple shiny tissue , mild fluctuance noted, no Induration noted Pain: pain and reports neuropathy Goals of Treatment: ? Moisture management with Durafiber AG lower leg elevation Right Dorsal and Lateral Foot Right Thrid Toe Right 3rd toe with stable dry scab and dry skin noted. The lateral area near the malleolus was noted for a stable black scab reports is from his shoe rubbing and the dorsal foot remains intact but with localized red raised area. They were cleansed with Betadine and covered with dry gauze dressing. Recommendations: 1. Provide adequate and supplemental nutrition.? 2. Order speciality extra long bed. 3. Maintain blood glucose levels per Providers order. 5. Right Lower Leg / Felder - Elevate lower leg off of bed with pillows. Cleanse with NS. apply barrier wipe to periwound. Cover wound bed with Durafiber AG, arik with dry gauze ABD pad and wrap. Change daily while inpatient. 6. Right lateral foot, dorsal foot and 3rd toe - [place] with betadine allow to dry. Cover with dry gauze. Change daily. Re-consult wound care Nurse for wound deterioration or wound changes.
--- NOTE | 2023-12-27 09:05 | HO.PM.IMPN ---
Subjective Subjective Date of Service: 12/27/23 Interval History: still with pain, mild improvement in surround erythema Physical Exam Vital Signs: Vital Signs: Last Vital Signs Temp 97.2 F 12/27/23 07:35 Pulse 70 12/27/23 07:35 Resp 18 12/27/23 07:35 BP 150/71 H 12/27/23 07:35 Pulse Ox 96 12/27/23 07:35 O2 Del Method Room Air 12/27/23 07:35 BMI result Body Mass Index 27.0 Objective Data Active Medications Acetaminophen (Acetaminophen 325 Mg Tablet) 650 mg PO Q6H PRN PRN Reason: Pain, Mild (Pain Scale 1-3), fever or headache Albuterol/Ipratropium (Albuterol/Iprat 2.5/0.5mg 3 Ml Ampul.Neb) 3 ml INHALE Q4H PRN PRN Reason: Wheezing Alprazolam (Alprazolam 0.25 Mg Tablet) 0.25 mg PO BID PRN PRN Reason: Anxiety Last Admin: 12/27/23 08:35 Dose: 0.25 mg Documented By: RAAD Aspirin (Aspirin Enteric Coated 81 Mg Tablet.) 81 mg PO DAILY [facility] Last Admin: 12/27/23 08:08 Dose: 81 mg Documented By: RAAD Azithromycin (Azithromycin 250 Mg Tablet) 250 mg PO DAILY [facility] Last Admin: 12/27/23 08:09 Dose: 250 mg Documented By: RAAD Benzonatate (Benzonatate 100 Mg Capsule) 200 mg PO TID PRN PRN Reason: Cough Last Admin: 12/27/23 02:16 Dose: 200 mg Documented By: VIRGINIE Calcium Carbonate (Calcium Carbonate 750 Mg Tab.Chew) 750 mg PO Q4H PRN PRN Reason: Heartburn Enoxaparin Sodium (Enoxaparin Sodium 40 Mg/0.4 Ml Syringe) 40 mg SUBCUT Q24H [facility] Last Admin: 12/27/23 08:07 Dose: 40 mg Documented By: RAAD Glucose (Glucose Gel 15 Gm Gel..Gram.) 15 gm PO Q15M PRN; Protocol PRN Reason: per Hypoglycemia Standing Ord. Hydromorphone HCl (Hydromorphone Hcl 2 Mg Tablet) 1 mg PO Q4H PRN PRN Reason: severe pain Last Admin: 12/27/23 00:39 Dose: 1 mg Documented By: VIRGINIE Dextrose (D10) 250 mls @ 750 mls/hr IV Q15M PRN; Protocol PRN Reason: per Hypoglycemia Standing Ord. Vancomycin HCl 1,500 mg/ (Sodium Chloride) 500 mls @ 333.333 mls/hr IV Q12H [facility] Last Infusion: 12/27/23 04:10 Dose: Infused Documented By: VIRGINIE Insulin Human Lispro (Insulin Lispro 100 Unit/Ml 3 Ml Vial) 0 unit SUBCUT QIDACHS [facility]; Protocol Last Admin: 12/27/23 08:09 Dose: 2 unit Documented By: RAAD Lisinopril (Lisinopril 10 Mg Tablet) 30 mg PO DAILY [facility]; Protocol Last Admin: 12/26/23 07:53 Dose: 30 mg Documented By: JESUS Magnesium Hydroxide (Milk Of Magnesia 30 Ml Oral.Susp) 30 ml PO DAILY PRN PRN Reason: Constipation Melatonin (Melatonin 3 Mg Tablet) 6 mg PO BEDTIME PRN PRN Reason: Insomnia Last Admin: 12/26/23 20:27 Dose: 6 mg Documented By: VIRGINIE Ondansetron HCl (Ondansetron Hcl 4 Mg/2 Ml Vial) 4 mg IVPUSH Q8H PRN PRN Reason: Nausea and Vomiting Last Admin: 12/26/23 13:14 Dose: 4 mg Documented By: CAPRI Pharmacy Consult (Consult Rx Vancomycin Dosing) 1 each MISCELLANE DAILY PRN PRN Reason: Consult order Sitagliptin Phosphate (Sitagliptin Phosphate 25 Mg Tablet) 25 mg PO DAILY [facility] Last Admin: 12/27/23 08:09 Dose: 25 mg Documented By: RAAD Sodium Chloride (0.9 % Sodium Chloride Flush 3 Ml Syringe) 3 ml IVFLUSH QSHIFT [facility] Last Admin: 12/27/23 08:09 Dose: 3 ml Documented By: RAAD Labs 12/27/23 05:42 12/27/23 05:42 Labs: Laboratory Results - last 24 hr 12/26/23 12/26/23 12/26/23 11:13 13:13 16:06 MCV MCH MCHC RDW Plt Count MPV Absolute Nucleated RBC Nucleated RBC % (auto) Anion Gap Estim Creat Clear Calc Estimated GFR POC Glucose 170 H 196 H Fasting Glucose Calcium Random Vancomycin 9.1 L 12/26/23 12/27/23 12/27/23 20:10 05:42 07:25 MCV 83.0 MCH 27.3 MCHC 32.9 RDW 13.1 Plt Count 295 D MPV 9.3 L Absolute Nucleated RBC 0.000 Nucleated RBC % (auto) 0.0 Anion Gap 13 Estim Creat Clear Calc 108.1 Estimated GFR > 60 POC Glucose 155 H 160 H Fasting Glucose 171 H Calcium 9.0 Random Vancomycin Microbiology Microbiology Results: Microbiology 12/25/23 00:15 Blood Culture - Preliminary Blood - Venous No growth after 48 hours. 12/25/23 00:15 Blood Culture - Preliminary Blood - Venous No growth after 48 hours. Assessment and Plan (1) Cellulitis: Status: Acute Plan 63M PMH hypertension, diabetes, peripheral neuropathy, peripheral vascular disease status post right toe amputation, coronary artery disease status post stent, chronic back pain, ulcerative colitis presented with right lower extremity swelling and erythema Sepsis due to right lower extremity cellulitis Continue IV vancomycin, monitor trough, follow up cultures - no growth to date, MRI negative for OM, follow up ID continue local wound care - elevate, cleanse, barrier wipe, durafiber AG, dry gauze abd pad and wrap acute hypokalemia replaced Diabetes with hyperglycemia pocs better controlled Continue insulin sliding scale, januvia Coronary artery disease/ pvd Continue aspirin Ulcerative colitis Not currently on meds Hypertension Lisinopril DVT prophylaxis with Lovenox Full Code reason for continued hospitalization: Needing IV antibiotics for cellulitis in a diabetic Quality Stroke Does the patient have a stroke diagnosis?: No VTE Prior VTE?: No VTE Risk Level:: Medical - moderate - high VTE Device Contraindication: Treatment Not Indicated VTE Drug Contraindication: N/A - Med Ordered
[2023-12-27] MEDS: lisinopriL 10 MG TABLET 30 MG PO (10:25)
[2023-12-27 11:05] LABS: Glucose, Whole Blood 188 mg/dL (60-115)
--- NOTE | 2023-12-27 12:47 | HE.PHANOTE ---
[facility] Patients level came back this morning at 11. Patient is on 1500 mg Q12H, changing dose to a more frequent frequency in attempt to bring level up to therapeutic. Predicted AUC 561. Next level 12/27 @1400 to ensure safety vs efficacy
[2023-12-27 15:24] VITALS: BP 157/74; PULSE 70; RESP 18; TEMP 36.1; O2SAT 96
[2023-12-27 15:55] LABS: Glucose, Whole Blood 193 mg/dL (60-115)
[2023-12-27] MEDS: Linezolid/D5W 600 MG/300 ML PIGGYBACK 300 MG IV ×2 (18:10→20:17)
[2023-12-27] MEDS: ondansetron HCL 4 MG/2 ML VIAL IVPUSH (18:15)
[2023-12-27 19:18] VITALS: BP 167/82; PULSE 70; RESP 18; TEMP 36.2; O2SAT 95
[2023-12-27 20:08] LABS: Glucose, Whole Blood 181 mg/dL (60-115)
[2023-12-27] MEDS: diphenhydrAMINE HCL 25 MG CAPSULE PO (20:15)
[2023-12-27] MEDS: Melatonin 3 MG TABLET 6 MG PO (21:53)
[2023-12-28 03:18] VITALS: BP 150/68; PULSE 73; RESP 18; TEMP 36.9; O2SAT 93
[2023-12-28 07:01] LABS: Hematocrit 36.1 % (42.0-52.0); Mean Corpuscular HGB Conc 33.2 g/dl (31.0-36.0); Mean Corpuscular Hemoglobin 27.3 pg (27.0-33.0); Mean Corpuscular Volume 82.2 fL (80.0-98.0); Mean Platelet Volume 9.3 fL (9.4-12.4); Platelet Count 280 X10*3/uL (160-400); Red Blood Count 4.39 X10*6/uL (4.60-5.80); White Blood Count 7.8 X10*3/uL (4.8-10.8)
[2023-12-28 07:02] LABS: Anion Gap 13 (12-20); Blood Urea Nitrogen 9 mg/dL (9-16); Calcium 8.9 mg/dL (8.4-10.2); Carbon Dioxide 24 mmol/L (22-29); Chloride 99 mmol/L (96-108); Creatinine Clr Calc Pharmacy 110.9; Estimated Glomerular Filt Rate > 60; Glucose Fasting 132 mg/dL (60-99); Magnesium 1.8 mg/dL (1.6-2.6); Potassium 3.5 mmol/L (3.3-5.1); Sodium 132 mmol/L (135-145)
[2023-12-28 07:31] VITALS: BP 154/69; PULSE 75; RESP 16; TEMP 36.4; O2SAT 94
[2023-12-28 07:36] LABS: Glucose, Whole Blood 154 mg/dL (60-115)
[2023-12-28] MEDS: Azithromycin 250 MG TABLET PO (08:09)
[2023-12-28] MEDS: SITagliptin Phosphate 25 MG TABLET PO (08:09)
[2023-12-28] MEDS: Linezolid/D5W 600 MG/300 ML PIGGYBACK 300 MG IV ×2 (08:09→22:11)
[2023-12-28] MEDS: Aspirin Enteric Coated 81 MG TABLET.DR PO (08:10)
[2023-12-28] MEDS: Enoxaparin Sodium 40 MG/0.4 ML SYRINGE SUBCUT (08:10)
[2023-12-28] MEDS: Insulin Lispro 100 UNIT/ML 3 ML VIAL SUBCUT ×3 (08:10→22:11)
[2023-12-28] MEDS: lisinopriL 10 MG TABLET 30 MG PO (08:10)
[2023-12-28] MEDS: 0.9 % Sodium Chloride Flush 3 ML SYRINGE IVFLUSH ×3 (08:12→22:12)
--- NOTE | 2023-12-28 09:44 | HO.PM.IMPN ---
Subjective Subjective Date of Service: 12/28/23 Interval History: stable Physical Exam Vital Signs: Vital Signs: Last Vital Signs Temp 97.6 F 12/28/23 07:31 Pulse 75 12/28/23 07:31 Resp 16 12/28/23 07:31 BP 154/69 H 12/28/23 07:31 Pulse Ox 94 12/28/23 07:31 O2 Del Method Room Air 12/28/23 07:31 BMI result Body Mass Index 27.0 General: AO X 3, no acute distress Resp: CTA bilateral, no accessory muscles used CVS: S1,S2,RRR GI: soft, non tender, non distended Neuro: motor grossly intact, alert Psych: appropriate affect, appropriate insight Objective Data Active Medications Acetaminophen (Acetaminophen 325 Mg Tablet) 650 mg PO Q6H PRN PRN Reason: Pain, Mild (Pain Scale 1-3), fever or headache Albuterol/Ipratropium (Albuterol/Iprat 2.5/0.5mg 3 Ml Ampul.Neb) 3 ml INHALE Q4H PRN PRN Reason: Wheezing Alprazolam (Alprazolam 0.25 Mg Tablet) 0.25 mg PO BID PRN PRN Reason: Anxiety Last Admin: 12/27/23 21:53 Dose: 0.25 mg Documented By: JANUARY Aspirin (Aspirin Enteric Coated 81 Mg Tablet.) 81 mg PO DAILY [facility] Last Admin: 12/28/23 08:10 Dose: 81 mg Documented By: RAAD Azithromycin (Azithromycin 250 Mg Tablet) 250 mg PO DAILY [facility] Last Admin: 12/28/23 08:09 Dose: 250 mg Documented By: RAAD Benzonatate (Benzonatate 100 Mg Capsule) 200 mg PO TID PRN PRN Reason: Cough Last Admin: 12/27/23 10:40 Dose: 200 mg Documented By: RAAD Calcium Carbonate (Calcium Carbonate 750 Mg Tab.Chew) 750 mg PO Q4H PRN PRN Reason: Heartburn Enoxaparin Sodium (Enoxaparin Sodium 40 Mg/0.4 Ml Syringe) 40 mg SUBCUT Q24H [facility] Last Admin: 12/28/23 08:10 Dose: 40 mg Documented By: RAAD Glucose (Glucose Gel 15 Gm Gel..Gram.) 15 gm PO Q15M PRN; Protocol PRN Reason: per Hypoglycemia Standing Ord. Hydromorphone HCl (Hydromorphone Hcl 2 Mg Tablet) 1 mg PO Q4H PRN PRN Reason: severe pain Last Admin: 12/27/23 21:53 Dose: 1 mg Documented By: JANUARY Dextrose (D10) 250 mls @ 750 mls/hr IV Q15M PRN; Protocol PRN Reason: per Hypoglycemia Standing Ord. Linezolid (Zyvox/D5w) 600 mg in 300 mls @ 300 mls/hr IV Q12H [facility] Last Infusion: 12/28/23 09:29 Dose: Infused Documented By: RAAD Insulin Human Lispro (Insulin Lispro 100 Unit/Ml 3 Ml Vial) 0 unit SUBCUT QIDACHS [facility]; Protocol Last Admin: 12/28/23 08:10 Dose: 2 unit Documented By: RAAD Lisinopril (Lisinopril 10 Mg Tablet) 30 mg PO DAILY [facility]; Protocol Last Admin: 12/28/23 08:10 Dose: 30 mg Documented By: RAAD Magnesium Hydroxide (Milk Of Magnesia 30 Ml Oral.Susp) 30 ml PO DAILY PRN PRN Reason: Constipation Melatonin (Melatonin 3 Mg Tablet) 6 mg PO BEDTIME PRN PRN Reason: Insomnia Last Admin: 12/27/23 21:53 Dose: 6 mg Documented By: JANUARY Ondansetron HCl (Ondansetron Hcl 4 Mg/2 Ml Vial) 4 mg IVPUSH Q8H PRN PRN Reason: Nausea and Vomiting Last Admin: 12/27/23 18:15 Dose: 4 mg Documented By: RAAD Sitagliptin Phosphate (Sitagliptin Phosphate 25 Mg Tablet) 25 mg PO DAILY [facility] Last Admin: 12/28/23 08:09 Dose: 25 mg Documented By: RAAD Sodium Chloride (0.9 % Sodium Chloride Flush 3 Ml Syringe) 3 ml IVFLUSH QSHIFT [facility] Last Admin: 12/28/23 08:12 Dose: 3 ml Documented By: RAAD Labs 12/28/23 05:03 12/28/23 05:03 Labs: Laboratory Results - last 24 hr 12/27/23 12/27/23 12/27/23 11:00 11:59 15:29 MCV MCH MCHC RDW Plt Count MPV Absolute Nucleated RBC Nucleated RBC % (auto) Anion Gap Estim Creat Clear Calc Estimated GFR POC Glucose 188 H 193 H Fasting Glucose Calcium Magnesium Random Vancomycin 11.0 L 12/27/23 12/28/23 12/28/23 19:50 05:03 07:30 MCV 82.2 MCH 27.3 MCHC 33.2 RDW 13.0 Plt Count 280 MPV 9.3 L Absolute Nucleated RBC 0.000 Nucleated RBC % (auto) 0.0 Anion Gap 13 Estim Creat Clear Calc 110.9 Estimated GFR > 60 POC Glucose 181 H 154 H Fasting Glucose 132 H Calcium 8.9 Magnesium 1.8 Random Vancomycin Assessment and Plan (1) Cellulitis: Status: Acute Plan 63M PMH hypertension, diabetes, peripheral neuropathy, peripheral vascular disease status post right toe amputation, coronary artery disease status post stent, chronic back pain, ulcerative colitis presented with right lower extremity swelling and erythema Sepsis due to right lower extremity cellulitis ID appreciated - changed to zyvox MRI negative for OM continue local wound care - elevate, cleanse, barrier wipe, durafiber AG, dry gauze abd pad and wrap acute hypokalemia replaced Diabetes with hyperglycemia pocs better controlled Continue insulin sliding scale, januvia Coronary artery disease/ pvd Continue aspirin Ulcerative colitis Not currently on meds Hypertension Lisinopril DVT prophylaxis with Lovenox Full Code reason for continued hospitalization: Needing IV antibiotics for cellulitis in a diabetic Quality Stroke Does the patient have a stroke diagnosis?: No VTE Prior VTE?: No VTE Risk Level:: Medical - moderate - high VTE Device Contraindication: Treatment Not Indicated VTE Drug Contraindication: N/A - Med Ordered
[2023-12-28 11:07] LABS: Glucose, Whole Blood 199 mg/dL (60-115)
[2023-12-28] MEDS: HYDROmorphone HCl 2 MG TABLET 1 MG PO ×2 (11:11→17:23)
[2023-12-28] MEDS: Potassium Chloride ER 20 MEQ TAB.ER.PRT 40 MEQ PO (11:11)
[2023-12-28 13:00] LABS: Vancomycin Random 2.6 mcg/mL (15-20)
[2023-12-28] MEDS: Piperacillin Sodium/Tazobactam 3.375 GM in 0.9 % Sodium Chloride 50 ML IV ×3 (13:05→23:55)
--- NOTE | 2023-12-28 14:47 | MHC.CM.PN ---
Per rounds, pt is not ready for DC, he requires continued treatment with IV ABX for cellulitis. Pt and family asked to speak with CM today, they had multiple complaints re: care, had already met with pt advocate. Pt. said he wants info on transferring to another hosp., CM asked where he wants to go, he said he does not know. CM spoke to SV of CM, and she followed up with head hospitalist, who was already aware and working to resolve issues. CM to follow and assist as needed with DC plan.
[2023-12-28 15:24] VITALS: BP 177/80; PULSE 81; RESP 18; TEMP 37.1; O2SAT 95
[2023-12-28] MEDS: ALPRAZolam 0.25 MG TABLET PO (15:51)
[2023-12-28 16:22] LABS: Glucose, Whole Blood 124 mg/dL (60-115)
[2023-12-28 19:32] VITALS: BP 160/77; PULSE 74; RESP 20; TEMP 36.5; O2SAT 95
[2023-12-28 20:58] LABS: Glucose, Whole Blood 160 mg/dL (60-115)
--- NOTE | 2023-12-28 23:00 | P.CNID_ITS ---
History of Present Illness Data of Consult Service Date: 12/28/23 Requesting physician: Romero Whitman Primary Care Provider: ROMINA Venegas Reason for consult: left cellulitis leg He presents with left leg erythema and pain in castillo area worse over last two days. Blood cultures are negative. MRI shows no OM. Review of Systems 2 Review of Systems: Yes all other systems are reviewed and are negative PMFSH Past Medical History Medical History Fecal incontinence Lower extremity numbness Colitis Diabetic autonomic neuropathy CAD (coronary artery disease) Diabetes HTN (hypertension) Family History Family History Father Colon cancer Family history: reviewed and not pertinent Surgical History Surgical History History of esophagogastroduodenoscopy (EGD) S/P placement of nerve stimulator Hx of discectomy Hx of colonoscopy History of right coronary artery stent placement Social History Social History Household Members: Spouse Patient Tobacco Use Status: Former Tobacco user Tobacco use type: Cigarette Smoked in Last 30 Days: No Second Hand Smoke Exposure: No Use of substances other than those prescribed or required for medical reasons: No Currently Displaying Signs/Symptoms of Drug Intoxication Withdrawal: No Advance Directives: No Advance Directives Information Provided: No Do you have a plan to hurt others: No Plan Recently lost weight without trying: No How much weight loss: Unsure Eating poorly because of decreased appetite: No Nutrition screen score: 2 Nutrition Risks: No Nutritional Risk Poor oral hygiene: No service: No Meds Allergies Allergy/AdvReac Type Severity Reaction Status Date / Time No Known Allergies Allergy Verified 12/24/23 12:00 Active Medications: Current Medications Acetaminophen (Acetaminophen 325 Mg Tablet) 650 mg PO Q6H PRN PRN Reason: Pain, Mild (Pain Scale 1-3), fever or headache Albuterol/Ipratropium (Albuterol/Iprat 2.5/0.5mg 3 Ml Ampul.Neb) 3 ml INHALE Q4H PRN PRN Reason: Wheezing Alprazolam (Alprazolam 0.25 Mg Tablet) 0.25 mg PO BID PRN PRN Reason: Anxiety Last Admin: 12/28/23 15:51 Dose: 0.25 mg Aspirin (Aspirin Enteric Coated 81 Mg Tablet.Dr) 81 mg PO DAILY [facility] Last Admin: 12/28/23 08:10 Dose: 81 mg Azithromycin (Azithromycin 250 Mg Tablet) 250 mg PO DAILY [facility] Last Admin: 12/28/23 08:09 Dose: 250 mg Benzonatate (Benzonatate 100 Mg Capsule) 200 mg PO TID PRN PRN Reason: Cough Last Admin: 12/27/23 10:40 Dose: 200 mg Calcium Carbonate (Calcium Carbonate 750 Mg Tab.Chew) 750 mg PO Q4H PRN PRN Reason: Heartburn Enoxaparin Sodium (Enoxaparin Sodium 40 Mg/0.4 Ml Syringe) 40 mg SUBCUT Q24H [facility] Last Admin: 12/28/23 08:10 Dose: 40 mg Glucose (Glucose Gel 15 Gm Gel..Gram.) 15 gm PO Q15M PRN; Protocol PRN Reason: per Hypoglycemia Standing Ord. Hydromorphone HCl (Hydromorphone Hcl 2 Mg Tablet) 1 mg PO Q4H PRN PRN Reason: severe pain Last Admin: 12/28/23 17:23 Dose: 1 mg Dextrose (D10) 250 mls @ 750 mls/hr IV Q15M PRN; Protocol PRN Reason: per Hypoglycemia Standing Ord. Linezolid (Zyvox/D5w) 600 mg in 300 mls @ 300 mls/hr IV Q12H [facility] Last Admin: 12/28/23 22:11 Dose: 300 mls/hr Piperacillin Sod/Tazobactam (Sod 3.375 gm/ Sodium Chloride) 50 mls @ 100 mls/hr IV Q6H [facility] Last Infusion: 12/28/23 19:20 Dose: Infused Insulin Human Lispro (Insulin Lispro 100 Unit/Ml 3 Ml Vial) 0 unit SUBCUT QIDACHS [facility]; Protocol Last Admin: 12/28/23 22:11 Dose: 2 unit Lisinopril (Lisinopril 10 Mg Tablet) 30 mg PO DAILY [facility]; Protocol Last Admin: 12/28/23 08:10 Dose: 30 mg Magnesium Hydroxide (Milk Of Magnesia 30 Ml Oral.Susp) 30 ml PO DAILY PRN PRN Reason: Constipation Melatonin (Melatonin 3 Mg Tablet) 6 mg PO BEDTIME PRN PRN Reason: Insomnia Last Admin: 12/27/23 21:53 Dose: 6 mg Ondansetron HCl (Ondansetron Hcl 4 Mg/2 Ml Vial) 4 mg IVPUSH Q8H PRN PRN Reason: Nausea and Vomiting Last Admin: 12/27/23 18:15 Dose: 4 mg Sitagliptin Phosphate (Sitagliptin Phosphate 25 Mg Tablet) 25 mg PO DAILY [facility] Last Admin: 12/28/23 08:09 Dose: 25 mg Sodium Chloride (0.9 % Sodium Chloride Flush 3 Ml Syringe) 3 ml IVFLUSH QSHIFT [facility] Last Admin: 12/28/23 22:12 Dose: 3 ml Home Medications ?Medication ?Instructions ?Recorded ?Confirmed ?Last Taken ?Type flash glucose sensor (FreeStyle #1 ea 04/10/22 06/12/23 Unknown History Ella 2 Sensor kit) lisinopril 30 mg tablet 30 mg PO DAILY 04/10/22 12/25/23 12/24/23 History dextroamphetamine-amphetamine 20 20 mg PO DAILY 11/19/23 12/25/23 12/24/23 History mg tablet (Adderall) albuterol sulfate 90 mcg/actuation 1 puff inhalation Q4H PRN 12/25/23 12/25/23 Unknown History aerosol inhaler Shortness Of Breath Or Wheezing azithromycin 250 mg tablet 250 mg PO DAILY 12/25/23 12/25/23 12/23/23 History hydrocodone-homatropine 5 mg-1.5 5 ml PO Q4H PRN Cough 12/25/23 12/25/23 Unknown History mg/5 mL oral syrup ipratropium 0.5 mg-albuterol 3 mg 3 ml inhalation Q4H PRN Shortness 12/25/23 12/25/23 Unknown History (2.5 mg base)/3 mL nebulization Of Breath Or Wheezing soln sitagliptin phosphate 25 mg tablet 25 mg PO DAILY 12/25/23 12/25/23 Unknown History (Nadeen) Physical Exam 2 Vital Signs: Vital Signs: Last Vital Signs Temp 97.7 F 12/28/23 19:32 Pulse 74 12/28/23 19:32 Resp 20 12/28/23 19:32 BP 160/77 H 12/28/23 19:32 Pulse Ox 95 12/28/23 19:32 O2 Del Method Room Air 12/28/23 19:32 BMI result Body Mass Index 27.0 Const: General: cooperative HEENT: Head: Yes normal to inspection Face and sinus: Yes normal facial exam Mouth: Normal oral and palatal mucosa present Teeth and gingiva: d entition normal Eyes: General: appearance normal, both eyes and all related structures P upils: Equal, round and reactive pupils present Resp: Effort & Inspection: normal respiratory effort Cardio: Rate: regular rate Rhythm: regular rhythm GI: Palpation (GI): Soft to palpation and nontender : General: Yes no CVA tenderness Back/Spine/Pelvis: Back: no CVA tenderness Skin: General skin exam: no rashes or lesions noted Neuro: General: moves all extremities Cranial nerves: Yes Equal, round and reactive pupils present Extrem: Other: erythema left leg,abrasion .5 cm laterally Psych: Appearance: grossly normal Results Labs 12/28/23 05:03 12/28/23 05:03 Labs: Short CBC 12/28/23 Range/Units 05:03 WBC 7.8 (4.8-10.8) X10*3/uL Hgb 12.0 L (14.0-18.0) g/dl Hct 36.1 L (42.0-52.0) % Plt Count 280 (160-400) X10*3/uL BMP 12/28/23 05:03 Sodium 132 L Potassium 3.5 Chloride 99 Carbon Dioxide 24 BUN 9 Creatinine 0.78 Calcium 8.9 Microbiology Microbiology Results: Microbiology 12/25/23 00:15 Blood - Venous Blood Culture - Preliminary No growth after 48 hours. 12/25/23 00:15 Blood - Venous Blood Culture - Preliminary No growth after 48 hours. Assessment and Plan (1) Cellulitis: Status: Acute Plan There is no specific organism found. Can use zosyn and linezolid. Po linezolid with possible augmentin one week outpatient. Vascular evaluation
[2023-12-29] MEDS: Melatonin 3 MG TABLET 6 MG PO (02:27)
[2023-12-29 03:37] VITALS: BP 134/77; PULSE 72; RESP 18; TEMP 36.1; O2SAT 94
[2023-12-29] MEDS: Piperacillin Sodium/Tazobactam 3.375 GM in 0.9 % Sodium Chloride 50 ML IV (06:19)
[2023-12-29 07:15] LABS: Hemoglobin 13.3 g/dl (14.0-18.0); Mean Corpuscular HGB Conc 33.3 g/dl (31.0-36.0); Mean Corpuscular Hemoglobin 27.4 pg (27.0-33.0); Mean Corpuscular Volume 82.3 fL (80.0-98.0); Mean Platelet Volume 9.1 fL (9.4-12.4); Platelet Count 342 X10*3/uL (160-400); Red Blood Count 4.86 X10*6/uL (4.60-5.80); Red Cell Distribution Width 12.8 % (11.0-16.0)
[2023-12-29 07:19] LABS: Glucose, Whole Blood 146 mg/dL (60-115)
[2023-12-29 07:30] LABS: Anion Gap 14 (12-20); Blood Urea Nitrogen 9 mg/dL (9-16); Calcium 9.5 mg/dL (8.4-10.2); Carbon Dioxide 21 mmol/L (22-29); Chloride 102 mmol/L (96-108); Creatinine Clr Calc Pharmacy 104.2; Estimated Glomerular Filt Rate > 60; Glucose Fasting 133 mg/dL (60-99); Sodium 133 mmol/L (135-145)
[2023-12-29 07:50] VITALS: BP 146/66; PULSE 71; RESP 18; TEMP 36.1; O2SAT 95
[2023-12-29] MEDS: Enoxaparin Sodium 40 MG/0.4 ML SYRINGE SUBCUT (09:06)
[2023-12-29] MEDS: lisinopriL 10 MG TABLET 30 MG PO (09:06)
[2023-12-29] MEDS: SITagliptin Phosphate 25 MG TABLET PO (09:06)
[2023-12-29] MEDS: Aspirin Enteric Coated 81 MG TABLET.DR PO (09:06)
[2023-12-29] MEDS: 0.9 % Sodium Chloride Flush 3 ML SYRINGE IVFLUSH (09:07)
[2023-12-29] MEDS: Linezolid/D5W 600 MG/300 ML PIGGYBACK 300 MG IV (09:12)
--- NOTE | 2023-12-29 10:25 | P.DS_ITS ---
DS: Providers Provider Date of Service: 12/29/23 Date of admission: 12/24/23 22:46 Primary care physician: ROMINA Venegas Consults: 12/26/23 08:11 Consult to Wound Care Routine Reason for consultation: R lower extremity Has provider been notified: Yes 12/26/23 17:46 Consult to Infectious Diseases Routine Consulting Provider: [facility] Reason for consultation: Cellulitis Has provider been notified: Yes 12/28/23 17:16 Consult to Vascular Surgery Routine Consulting Provider: [facility] Reason for consultation: ?PVD DS: Diagnosis Discharge Diagnosis (1) Cellulitis: Status: Acute DS: Summary Hospital Course Hospital Course: History of presenting illness: Date of Service: 12/24/23 Chief Complaint: Right lower extremity redness This is a 63-year-old male with pertinent history of hypertension, [id number] diabetes mellitus with peripheral neuropathy, PAD status post right toe amputation, CAD status post stent, chronic back pain who presents to the emergency department for concerns of right lower extremity infection. Patient states started having cough about 6-7 days ago and was seen at [facility] but his imaging was negative and he was told that he does not have a bacterial pneumonia. Three days prior to presentation he noticed right lower extremity redness and warmth. This was progressive and progressed from the foot to mid le g of the right lower extremity. Also has been chills but no documented fever. No nausea or vomiting. No abdominal pain, chest pain, palpitations, changes in urinary or bowel habits. In the emergency department, patient was found to be septic and imaging concerning for soft tissue swelling. Hospital course: 63M PMH hypertension, diabetes, peripheral neuropathy, peripheral vascular disease status post right toe amputation, coronary artery disease status post stent, chronic back pain, ulcerative colitis presented with right lower extremity swelling and erythema and admitted to [facility] with a diagnosis of : Sepsis due to right lower extremity cellulitis, blister lower leg, patient admitted to medical floor started on IV vancomycin, noted to have elevated ESR and CRP, therefore MRI foot obtained to rule out osteomyelitis it showed subcutaneous edema extending along the foot and the proximally beyond the image with mild skin thickening consistent with mild cellulitis, no organized fluid collection or abscess noted, no acute osteomyelitis seen,Blood cultures x2 negative, ultrasound arterial duplex right lower extremity showed no hemodynamically significant stenosis, WBC normalized, patient had no recurrent fevers , since noted to have persistent erythema and swelling seen by infectious disease antibiotics changed to Zyvox and IV Zosyn, patient noted to have open wound mid castillo after blister broke seen by wound nurse and local wound care provided with dura fiber Ag, dry gauze,ABD pad and wrap, however patient wishes to leave hospital against medical advice and plans to be seen at [facility], patient informed about risk of untreated cellulitis including sepsis, loss of limb, he is aware and wishes treatment at [facility]. acute hypokalemia repleted and normalized Diabetes with hyperglycemia recommend to resume home medications and monitor point of care Coronary artery disease/ pvd no acute events during hospitalization continue home medications Ulcerative colitis no acute flares,not currently on meds. Hypertension blood pressure stable continue lisinopril Time Attestation Discharge Coordination Time (in mins): 38 Quality: Safe Use of Opioids Does Pt have an Active Cancer Diagnosis on the Problem List?: No Quality: Stroke Does the patient have a stroke diagnosis?: No Physical Exam Vital Signs: Vital Signs: Last Vital Signs Temp 97.0 F 12/29/23 07:50 Pulse 71 12/29/23 07:50 Resp 18 12/29/23 07:50 BP 146/66 H 12/29/23 07:50 Pulse Ox 95 12/29/23 07:50 O2 Del Method Room Air 12/29/23 07:50 BMI result Body Mass Index 27.0 Const: Other: General: AO X 3, no acute distress no jvd Resp: CTA bilateral, no accessory muscles used CVS: S1,S2,RRR GI: soft, non tender, non distended Neuro: motor grossly intact, alert Psych: appropriate affect, appropriate insight Right lower leg redness extending from ankle to mid leg with open wound measuring 3.5 cm into 0.2 cm into 0.2 cm, yellow serous drainage DS: Data Data Completed and Pending Labs on day of discharge: Laboratory Results - last 24 hr 12/28/23 12/28/23 12/28/23 11:03 12:29 16:18 WBC RBC Hgb Hct MCV MCH MCHC RDW Plt Count MPV Absolute Nucleated RBC Nucleated RBC % (auto) Sodium Potassium Chloride Carbon Dioxide Anion Gap BUN Creatinine Estim Creat Clear Calc Estimated GFR POC Glucose 199 H 124 H Fasting Glucose Calcium Random Vancomycin 2.6 L 12/28/23 12/29/23 12/29/23 20:51 06:28 07:11 WBC 8.0 RBC 4.86 Hgb 13.3 L Hct 40.0 L MCV 82.3 MCH 27.4 MCHC 33.3 RDW 12.8 Plt Count 342 MPV 9.1 L Absolute Nucleated RBC 0.000 Nucleated RBC % (auto) 0.0 Sodium 133 L Potassium 4.0 Chloride 102 Carbon Dioxide 21 L Anion Gap 14 BUN 9 Creatinine 0.83 Estim Creat Clear Calc 104.2 Estimated GFR > 60 POC Glucose 160 H 146 H Fasting Glucose 133 H Calcium 9.5 D Random Vancomycin Preliminary micro results at discharge 12/25/23 00:15 Blood Culture - Preliminary Blood - Venous No growth after 48 hours. 12/25/23 00:15 Blood Culture - Preliminary Blood - Venous No growth after 48 hours. Discharge Plan Discharge Anticipated Discharge Date/Time: 12/29/23 10:23 Patient Disposition: Left Against Medical Advice Discharge Diagnosis: Left leg cellulitis Referrals: Lucho Escobedo PA [Primary Care Provider] - 1 Week Discharge Medications: Continued ipratropium-albuterol 0.5 mg-3 mg(2.5 mg base)/3 mL solution for nebulization 3 ml inhalation Q4H PRN (Reason: Shortness Of Breath Or Wheezing) hydrocodone-homatropine 5-1.5 mg/5 mL syrup 5 ml PO Q4H PRN (Reason: Cough) albuterol sulfate 90 mcg/actuation HFA aerosol inhaler 1 puff inhalation Q4H PRN (Reason: Shortness Of Breath Or Wheezing) Januvia 25 mg tablet 25 mg PO DAILY (DME) Project Bionic Ella 2 Sensor Kit See Rx Instructions .ROUTE .MEDSUPPLY Qty: 1 Rx Instructions: As directed lisinopril 30 mg tablet 30 mg PO DAILY dextroamphetamine-amphetamine [Adderall] 20 mg tablet 20 mg PO DAILY Discontinued azithromycin 250 mg tablet 250 mg PO DAILY Rx Instructions: only took two doses, three left Discharge Orders: Discharge Order (Routine); Ordered 12/29/23 Ordered By: Chris Flower Diet: Diabetic diet Activity on Discharge: As tolerated Print Language: Romanian Care Plan Goals: Recent diagnosis of bronchitis/discontinue azithromycin Left leg cellulitis patient leaving AMA and going to [facility] for further treatment Recommend to continue all home medications as before Health Concerns: Diabetes Plan of Treatment: Outpatient follow-up with primary care physician Assessment: As above
--- NOTE | 2023-12-31 00:21 | PM.EVENT ---
Event Note Date of Service: 12/28/23 Event Note: He told me he was having his care managed by [facility] Infectious Disease chair and his own work on his health care portal and his gold leaf roller and instructed me to leave room which I did do. Time Spent With Patient Time: Total time managing care of this patient today ____ minutes.
== END 2023-12-29 11:07 | disposition left against medical advice (07) | DRG 720 ==
LOC: HO.ED 21:18 → HO.EDOVER 23:42 → HO.IMC 12-25 07:54
PROVIDERS: Internal Medicine; Physician Assistant Medical; Admitting Provider Student in an Organized Health Care Education/Training Program; Emergency Provider Emergency Medicine; PCP Physician Assistant; Visit Provider Hospitalist
DX: A41.9 Sepsis, unspecified organism (principal); E11.51 Type 2 diabetes mellitus with diabetic peripheral angiopathy without gangrene; E11.42 Type 2 diabetes mellitus with diabetic polyneuropathy; L03.115 Cellulitis of right lower limb; E11.628 Type 2 diabetes mellitus with other skin complications; I10 Essential (primary) hypertension; E78.00 Pure hypercholesterolemia, unspecified; M54.9 Dorsalgia, unspecified; G89.29 Other chronic pain; E11.65 Type 2 diabetes mellitus with hyperglycemia; K51.90 Ulcerative colitis, unspecified, without complications; E87.6 Hypokalemia; I25.10 Atherosclerotic heart disease of native coronary artery without angina pectoris; Z95.5 Presence of coronary angioplasty implant and graft; Z96.82 Presence of neurostimulator; Z87.891 Personal history of nicotine dependence; Z79.899 Other long term (current) drug therapy
CPT/HCPCS: 36415; 71045; 73630; 73720; 80048; 80053; 80202; 82947; 83605; 83735; 85025; 85027; 85652; 86140; 87040; 93926; 93971; 99285; A9585; J1650; J2020; J2405; J2543; J3370; J3371; J7120

== ENCOUNTER → 2023-12-24 18:18 | Outpatient (BNV) | payer OTHER, SELFPAY | PROVIDERS: Emergency Provider Emergency Medicine; Visit Provider Student in an Organized Health Care Education/Training Program | DX: L03.115 Cellulitis of right lower limb (principal); E11.628 Type 2 diabetes mellitus with other skin complications | CPT/HCPCS: 99223; 99232; 99233; 99239 ==

== ENCOUNTER → 2023-12-24 22:46 | Outpatient (BNV) | payer OTHER, SELFPAY | PROVIDERS: Admitting Provider Student in an Organized Health Care Education/Training Program; Emergency Provider Emergency Medicine; PCP Physician Assistant; Visit Provider Internal Medicine | DX: L03.90 Cellulitis, unspecified (principal) | CPT/HCPCS: 99222; 99499 ==

== ENCOUNTER 2024-01-23 10:36 | Outpatient (REF) | payer OTHER, SELFPAY ==
[2024-01-23 12:22] LABS: Alanine Aminotransferase 22 U/L (0-40); Albumin Level 3.9 g/dL (3.5-5.0); Alkaline Phosphatase 75 U/L (39-117); Anion Gap 12 (12-20); Aspartate Amino Transferase 23 U/L (5-37); Bilirubin Total 0.5 mg/dL (0.0-1.0); Blood Urea Nitrogen 15 mg/dL (9-16); Calcium 9.4 mg/dL (8.4-10.2); Carbon Dioxide 27 mmol/L (22-29); Chloride 102 mmol/L (96-108); Estimated Glomerular Filt Rate > 60; Glucose Random 180 mg/dL (60-115); Potassium 4.1 mmol/L (3.3-5.1); Sodium 137 mmol/L (135-145); Total Protein 7.7 g/dL (6.5-8.0)
[2024-01-28 18:34] LABS: Testosterone, Free 64.2 pg/mL (35.0-155.0); Testosterone, Total 425 ng/dL (250-1100)
== END 2024-01-23 10:37 | disposition home or self-care (01) ==
LOC: HO.LAB 10:36
PROVIDERS: Visit Provider Internal Medicine Gastroenterology
DX: R53.83 Other fatigue (principal); K75.81 Nonalcoholic steatohepatitis (NASH)
CPT/HCPCS: 36415; 80053; 84402; 84403

== ENCOUNTER 2024-01-28 15:56 | Outpatient (REF) | payer OTHER, SELFPAY ==
[2024-01-28] MEDS: iohexoL 350 MG/ML 100 ML INFUS..BTL 85 ML IV (16:25)
== END 2024-01-28 15:57 | disposition home or self-care (01) ==
LOC: HO.CT 15:56
PROVIDERS: PCP Physician Assistant; Visit Provider Internal Medicine Gastroenterology
DX: R53.83 Other fatigue (principal); K52.82 Eosinophilic colitis
CPT/HCPCS: 74177; Q9967

== ENCOUNTER → 2024-01-28 16:01 | Outpatient (BNV) | payer OTHER, SELFPAY | PROVIDERS: PCP Physician Assistant; Visit Provider Radiology Diagnostic Radiology | DX: K80.80 Other cholelithiasis without obstruction (principal); K57.30 Diverticulosis of large intestine without perforation or abscess without bleeding | CPT/HCPCS: 74177 ==

== ENCOUNTER 2024-05-26 12:57 | Outpatient (AMB) | payer OTHER, SELFPAY ==
--- NOTE | 2024-05-26 13:01 | MHC.OFFVIS ---
Vital Signs 05/26/24 13:04 Height 6 ft 1 in Weight 205 lb 0.478 oz BMI 27.0 BP 166/77 H Blood Pressure Location Lt brachial Position Sitting Pulse 82 Intake Visit Reasons: f/u Eosinophilic colitis Intake Note: Inocente presents in the offie as a follow up for eosinophilic colitis. 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 RECAP: He decribes problems since last [place] when he had numbness from torso down along with bladder retention he had bladder drained and was sent home since then he has minimal feeling from waist to the feet he did get spinal surgery at July 2021 and had release of nerves from the spine, and relieved pain and neuropathy but the numbness persisted --he was told things may incrementally improve or not with time constant feeling of wanting to go to the bathroom he has been told by Dr olievr he has overflow incontinence, he soils himself few times a week, he has no feeling of it no blood in the stool he has nausea all the time he has some pelvic fullness he can empty bladder and urinate but he has to push he had colonoscopy aged 53 and aged 46 ---may have had some polyps Colonoscopy: granular mucosa, Path with increased eosinophils RAST studies were neg lactoferrin was neg He had spinal stim placed by Dr Pugh EGD/[facility] 07/04/23 Endoscopy Findings: erosive duodenitis gastritis esophagitis Colonoscopy Findings: diverticulosis internal hemorrhoids path: no eosinophils, nml TI and colon CT 2023 diverticulosis cholelithiasis INTERIM: bowels are 1000% better but going several times a day, stools are formed most of the time no further extreme diarrhea he has not tried probiotics denies abdominal pain mild nausea, but he is unsure if due to vertigo issues EXAM: GENERAL: The patient is well developed and nontoxic. VITAL SIGNS:see workflow HEENT: Nonicteric sclerae, PERRLA, EOMI. Oropharynx clear. Moist mucous membranes. Conjunctivae appear well perfused. No thyroid mass. CHEST: Chest wall is nontender. HEART: Regular rate and rhythm without murmurs. LUNGS: Clear to auscultation bilaterally. ABDOMEN: Soft, positive bowel sounds, nontender, no organomegaly.no flank tenderness SKIN: No rash, no excessive bruising, petechiae, or purpura. NEUROLOGIC: Cranial nerves II-XII intact without motor/sensory deficit. A/P: 1/ Fecal incontinence secondary to spinal cord injury and possible diabetic autonomic neuropathy, s/p spinal stimulator -stools much better but now was increased stool frequency Plan: 1/ recommended align probiotics, high fiber diet, and fluids --if no better then maybe welchol or lomotil PFSH Medical History Fecal incontinence Lower extremity numbness Colitis Diabetic autonomic neuropathy CAD (coronary artery disease) Diabetes HTN (hypertension) Surgical History History of esophagogastroduodenoscopy (EGD) S/P placement of nerve stimulator Hx of discectomy Hx of colonoscopy History of right coronary artery stent placement Family History Father Colon cancer Social History Household Members: Spouse Patient Tobacco Use Status: Former Tobacco user Tobacco use type: Cigarette Second Hand Smoke Exposure: No service: No Physical Exam Vital Signs: Last Vital Signs Pulse 82 05/26/24 13:04 BP 166/77 H 05/26/24 13:04 BMI result Body Mass Index 27.0 Assessment & Plan Assessment & Plan (1) Incontinence of feces: Code(s): R15.9 - Full incontinence of feces Category: Medical Qualifiers: Fecal incontinence type: fecal urgency Qualified Code(s): R15.9 - Full incontinence of feces; R15.2 - Fecal urgency Plan: as above Coding Level of Care Code Est Pt Level 3 (94082) Diagnoses Incontinence of feces with fecal urgency R15.9; R15.2 Fecal incontinence type: fecal urgency
[2024-05-26 13:04] VITALS: BP 166/77; PULSE 82; BMI 27.0
== END 2024-05-26 13:34 | disposition home or self-care (01) ==
LOC: HO.HGI 12:58
PROVIDERS: PCP Physician Assistant; Visit Provider Internal Medicine Gastroenterology
DX: R15.9 Full incontinence of feces (principal); R15.2 Fecal urgency
CPT/HCPCS: 99213

== ENCOUNTER → 2024-05-26 12:57 | Outpatient (BNVA) | payer OTHER, SELFPAY | PROVIDERS: PCP Physician Assistant; Visit Provider Internal Medicine Gastroenterology | DX: R15.2 Fecal urgency (principal); R15.9 Full incontinence of feces | CPT/HCPCS: 99212 ==

== ENCOUNTER 2024-06-12 09:30 | Outpatient (AMB) | payer OTHER, SELFPAY ==
--- NOTE | 2024-06-12 09:37 | MHC.OFFVIS ---
Intake Visit Reasons: 1y follow up Intake Note: Patient is Present for 1Y Follow Up Urology Med:Sildenafil Antibiotic Allergy:None Blood Thinner:ASPIRIN Ink Blender Required: No Allergies No Known Allergies Allergy (Verified 06/12/24 09:38) HPI Comments Details: Inocente is a pleasant male. He is a patient of Dr. Chavez. He is seen for the following urologic conditions - lower urinary tract symptoms - erectile dysfunction in setting of diabetes Continue good response to InterStim Effective emptying Restart daily tadalafil Has significant benefit in setting of diabetes and cardiac disease Can increase sildenafil on demand 200 as needed Urinary Symptoms Review - Increased frequency of urination during daytime and nighttime, up to three to four times per night. - Urgency in urination exacerbated by stress. - Weak urinary stream and incomplete bladder emptying, intermittently. - Observation of periods of normal urination followed by difficulties in urination, lasting a few days at a time. - Current treatment includes daily Tadalafil and on-demand Sildenafil for erectile dysfunction alongside previous cessation of daily Tadalafil. - Urination difficulties post-spinal stenosis. Erectile Dysfunction in setting of diabetes Effective response with medication and weaning of duloxetine Prior therapy on demand sildenafil, daily tadalafil Lower urinary tract symptoms Initial presentation with urinary retention background diabetes Past voiding trial after spinal intervention Had episode of spinal stenosis with urinary retention [address] Chen Has had significant return of urinary function InterStim placement 06/25 [facility] Medical History Fecal incontinence Lower extremity numbness Colitis Diabetic autonomic neuropathy CAD (coronary artery disease) Diabetes HTN (hypertension) Surgical History History of esophagogastroduodenoscopy (EGD) S/P placement of nerve stimulator Hx of discectomy Hx of colonoscopy History of right coronary artery stent placement Family History Father Colon cancer Social History Household Members: Spouse Patient Tobacco Use Status: Former Tobacco user Tobacco use type: Cigarette Second Hand Smoke Exposure: No service: No Review of Systems Const Denies chills and Denies fever(s) Card Reports no additional complaints and Denies syncope Resp Denies cough GI Denies abdominal pain and Denies heartburn Reports as per HPI and Denies change in libido Neuro Denies syncope Psych Denies change in libido Endo Denies change in libido Physical Exam Const General: cooperative, healthy appearing, comfortable and no acute distress Orientation/consciousness: patient oriented x3 HEENT Face and sinus: Yes normal facial exam Mouth: moist mucous membranes Neck Neck: Yes normal visual inspection, Yes full ROM and Yes trachea midline Chest Chest palpation & inspection: normal inspection of the chest Resp Effort & Inspection: normal respiratory effort, able to speak in complete sentences and no respiratory distress GI Inspection: Yes normal to inspection Back/Spine/Pelvis Cervical Spine: normal cervical lordosis Thoracic/Lumbar Spine: thoracic and lumbar spine normal to inspection Skin General skin exam: no rashes or lesions noted Neuro General: patient oriented x3, gait normal, tone normal and moves all extremities Extrem General: Yes normal to inspection and Yes capillary refill normal Assessment & Plan Assessment & Plan (1) Urinary retention with incomplete bladder emptying: Code(s): R33.9 - Retention of urine, unspecified Category: Medical (2) Erectile dysfunction associated with type 2 diabetes mellitus: Code(s): E11.69 - Type 2 diabetes mellitus with other specified complication; N52.1 - Erectile dysfunction due to diseases classified elsewhere Category: Medical Plan One year follow-up Plan Reinstitute daily Tadalafil for LUTS and erectile dysfunction. Increase on-demand Sildenafil if well-tolerated. Evaluate use of Tamsulosin to improve urinary flow and frequency, considering smooth muscle relaxation benefit. Discuss with patient potential differences in response to generics. Check PSA levels routinely. Monitor overall response and adjust management accordingly. Discussion Notes I discussed with the patient the plan to reinstate daily Tadalafil due to its benefits in managing both erectile dysfunction and LUTS. We reviewed the impact of generics variability on Sildenafil efficacy, and I ensured the patient understood the differences in manufacturers' formulations. We reviewed the possibility of integrating Tamsulosin to manage nocturnal urination and urinary flow. I provided details on potential side effects and emphasized the importance of acquiring medications from a consistent source. I also reviewed the benefits of improved cardiovascular health post-myocardial intervention on urinary and gastrointestinal symptoms, which we attributed to enhanced blood flow. I advised the patient on the anticipated decrease in nocturnal urination frequency and outlined the follow-up plan, including PSA testing. Patient Instructions - Restart daily Tadalafil for management of urinary symptoms and erectile dysfunction. - Continue Sildenafil on-demand and discuss efficacy with consistent pharmacy refills. - Monitor urinary symptoms and report any changes or discomfort. - Plan for PSA level check as part of routine follow-up. - Correct any medication alteration due to generic type differences. - Follow up in one year or if symptoms exacerbate sooner. Orders: Orders Prostate Specific Antigen 1 Year R33.9 - Retention of urine, unspecified AMB Urinalysis Automated Today Z13.9 - Encounter for screening, unspecified Patient Instructions: This note is constructed using voice recognition software. While every effort has been made to ensure accuracy rod straightener errors may have been included. Imaging studies, laboratory and physical exam results were discussed and reviewed in detail. No major barriers to patient understanding were identified. An opportunity to ask questions regarding the treatment plan was provided. All questions were answered. The patient expressed understanding and agreement with the above treatment plan. The patient is aware they should contact our office by phone for worsening of their current condition or the appearance of new urologic symptoms. Compliance is encouraged with any medications and followup testing that is ordered. It is a privilege to participate in the urologic care of your patient. If you have any questions or concerns regarding treatment for the above conditions, or other urologic issues, please do not hesitate to contact me. The office telephone contact is [phone]. Sincerely, Dr Zachary Pugh MD, [facility] - Urology Compassionate Specialist Care for the Genitourinary System Coding Level of Care Code Est Pt Level 4 (50010) Complex EM visit Add On G2211 Diagnoses Urinary retention with incomplete bladder emptying R33.9 Erectile dysfunction associated with type 2 diabetes mellitus E11.69; N52.1
--- OUTSIDE RECORDS SUMMARY | 2024-06-12 10:28 | XMS_ITS | Clinical Summary ---
Author Organization [facility] Address [address] [place] [address] Phone Care Team Providers Care [employer] Product Consultant Name Role Phone Lucho Escobedo Primary Care Provider [phone] Allergies No known active allergies Medications amphetamine-dex troamphetamine (ADDERALL) 20 mg tablet Take 1 tablet (20 mg total) by mouth 1 (one) time each day. Max Daily Amount: 20 mg 11/02/2023 Active calcium carbonate (OS-LEVI) 1,250 mg (500 mg elemental calcium) tablet Take 1 tablet (1,250 mg total) by mouth 1 (one) time each day. Active azithromycin (ZITHROMAX) 250 mg tablet 2 pills PO today, then 1 pill PO QD for 4 days. 05/14/2023 Active mesalamine (APRISO) 0.375 gram 24 hr capsule Take 1 capsule (0.375 g total) by mouth 1 (one) time each day. Active psyllium (Daily Fiber, psyllium-aspart ,) 3.4 gram packet Take 1 Packet by mouth daily. 04/04/2022 Active lisinopriL (PRINIVIL,ZESTR IL) 30 mg tablet Take 1 tablet (30 mg total) by mouth 1 (one) time each day. 01/03/2022 Active metFORMIN (GLUCOPHAGE) 500 mg tablet Take 1 tablet (500 mg total) by mouth 2 (two) times a day. 01/03/2022 Active sildenafiL (VIAGRA) 100 mg tablet Take 1 tablet (100 mg total) by mouth as needed. Active sitagliptin phosphate (JANUVIA ORAL) Take by mouth. Active metoprolol tartrate (LOPRESSOR) 25 mg tablet Take 1 tablet (25 mg total) by mouth 2 (two) times a day. 11/29/2020 Active amLODIPine (NORVASC) 10 mg tablet Take 1 tablet (10 mg total) by mouth 1 (one) time each day. 11/18/2020 Active aspirin 81 mg EC tablet Take 1 tablet (81 mg total) by mouth 1 (one) time each day. 90 tablet 3 03/17/2024 Active atorvastatin (LIPITOR) 80 mg tablet Take 1 tablet (80 mg total) by mouth 1 (one) time each day. 90 tablet 3 03/17/2024 Active Brilinta 90 mg tablet Take 1 tablet (90 mg total) by mouth 2 (two) times a day. 180 tablet 3 03/17/2024 Active Active Problems Problem Noted Date Diagnosed Date Atherosclerosis of galena coronary artery 2022 Overview (01/25/2024): Last Assessment & Plan: Patient is concerned that he has had recurrent symptoms similar to what he had prior to his stent placement. We will send him for a stress echocardiogram Incontinence 01/06/2022 Spinal stenosis of lumbar re gion with neurogenic claudication 07/15/2021 Overview (01/25/2024): Last Assessment & Plan: Seen is now approximately 2 weeks status post lumbar decompression. He is feeling well and has not had any drainage from the incision. He has finished his antibiotics. He can follow-up with us on an as-needed basis. Low back pain 07/21/2020 Overview (01/25/2024): Addendum by Paula IBARRA, Jose Ovalles on May 08, 2017 9:24 MRI results reviewed and discussed with the patient. He mainly has some foraminal stenosis at L4 and L5. After discussion with him he told me he would call our office and arrange for follow-up with Dr. Calderon (or Elvia Momin). Anxiety 12/11/2012 Myocardial infarct (CMS/HCC V24, CMS/HCC V28) Overview (01/25/2024): 12/2012 Hyperlipidemia 10/06/2011 Insomnia 04/05/2010 Familial hemochromatosis ([facility]/HCC V24) 1 Type 2 diabetes mellitus (CMS/HCC V24, [facility] V 28) 03/30/2010 Overview (01/25/2024): Uncontrolled HTN (hypertension) 03/30/2010 Encounters Date Type Department Care Team Description 04/02/2024 Telephone [facility] [address] [place] [address] Lupe Bah NP No Call No Show (Letter sent.) from Last 3 Months Immunizations Name Administration Dates Next Due Influenza trivalent, 0.5mL, preservative free (Fluarix; FluLaval; Fluzone) ages 6mo and older (Afluria) 3 years and older 01/19/2021,11/23/2011 Pneumococcal polysaccharide 23 valent (Pneumovax 23) 2yo and older 12/11/2018 Surgical History Surgery Date Site/Laterality Comments COLONOSCOPY PROCEDURE: TX COLONOSCOPY STOMA DX INCLUDING COLLJ SPEC SPX CARDIAC CATHETERIZATION DONE ON AT [facility] INDICATIONS:NSTEMI Medical History Medical History Date Comments Fecal incontinence DX:Fecal inco ntinence History of lumbar laminectom y for spinal cord decompression DX:History of lumbar laminec diann for spinal cord decompression Change in bowel habits DX:Change in bowel habits Diabetes 1.5, 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, CMS/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, managed as type 2 (HCC) Paresthesia of lower extremity D X:Paresthesia of lower extremity HTN (hypertension) DX:HTN (hyper tension) Lumbar pain DX:Lumbar pain Drug withdrawal syndrome (CM S/HCC V24, CMS/HCC V28) DX:Drug withdrawal syndrome (HCC) Biceps tendinitis on left DX:Bic eps tendinitis on left Left elbow pain DX:Left elbow pa in Uncontrolled type 2 diabetes mellitus with hyperglycemia (CMS/HCC V24, CMS/HCC V28) DX:Uncontrolled type 2 diabe lucy mellitus with hyperglycemia (HCC) Family History Relation Name Status Comments Brother 1 Alive hemochromatosis Brother 2 Alive Father Alive colon ca Mother Alive Sister 1 Alive Sister 2 Alive Sister 3 Alive Social History Tobacco Use Types Packs/Day Years Used Date Smoking Tobacco: Former Cigarettes Q uit: 10/03/2009 Smokeless Tobacco: Never Alcohol Use Standard Drinks/Week Comments Yes 0 (1 standard drink = 0.6 oz pur e alcohol) Sex and Gender Information Value Date Recorded Sex Assigned at Not on file Legal Sex Male 2:02 PM EST Gender Identity Not on file Sexual Orientation Not on file Obstetrics History Last Filed Vital Signs Vital Sign Reading Time Taken Comments Blood Pressure 164/82 05/14/2023 3:02 PM EDT Pulse 73 05/14/2023 3:02 PM EDT Temperature - - Respiratory Rate - - Oxygen Saturation - - Inhaled Oxygen Concentration - - Weight 97 kg (213 lb 14.4 oz) 01/31/2023 1:11 PM EST Height 185.4 cm (6' 1 ) 01/31/2023 1:11 PM EST Body Mass Index 28.22 01/31/2023 1:11 PM EST Plan of Treatment Upcoming Encounters Date Type Department Care Team (Late st Contact Info) Description 06/30/2024 2:00 PM EDT Evaluation [facility] - [place] [address] [place] [id number] Jose Turner, PT 07/23/2024 1:15 PM EDT Consult Orthopedic Surgery - [place] [address] [facility] [address] [place] [id number] Rico Emmanuel, DPM [address] [address] Health Maintenance Due Date Last Done Comments Diabetes: Annual Foot Exam 1971 Diabetes: Annual Retina Eye Exam 1971 DTaP,Tdap,and Td Vaccines (1 - Tdap) 02/08/1980 Zoster Vaccines (1 of 2) 2011 Pneumococcal Vaccine: 50+ Years (2 of 2 - PCV) 12/12/2019 12/11/2018 Pneumococcal Vaccine: Pediatrics (0 to 5 Years) and At-Risk Patients (6 to 64 Years) (2 of 2 - PCV) 12/12/2019 12/11/2018 Colorectal Cancer Screening: Colonoscopy 02/11/2022 03/05/2008 Depression Screening 02/11/2022 Lung Cancer Screening (Low Dose CT) 02/11/2022 Social Influencers of Health Screening 02/11/2022 Diabetes: Annual Urine Albumin-Creatinine Ratio (uACR) 02/17/2022 07/16/2012 Diabetes: Blood Sugar Contro l Test (HGBA1C) 01/25/2023 07/25/2022 Diabetes: Annual GFR (Glomerular Filtration Rate) 07/26/2023 07/25/2022 Hypertension/CHF/CAD Annual BMP Blood Test 07/26/2023 07/25/2022 COVID-19 Vaccine (2023-2 5 season) 2023 01/19/2021, 06/02/2020, 05/05/2020 Influenza Vaccine (Season Ended) 2024 01/19/2021, 11/23/2011 Cholesterol Screening (Lipid Panel) 07/26/2027 07/25/2022 RSV Immunization Adult Patients (1 - 1-dose 75+ series) 02/08/2036 HIV Screening Completed 07/25/2022 Hepatitis C Screening Completed 07/25/2022 HIB Vaccines Aged Out No longer eligi ble based on patient's age to complete this topic HPV Vaccines Aged Out No longer eligi ble based on patient's age to complete this topic Hepatitis A Vaccines Aged Out No long er eligible based on patient's age to complete this topic Hepatitis B Vaccines Aged Out No long er eligible based on patient's age to complete this topic IPV Vaccines Aged Out No longer eligi ble based on patient's age to complete this topic MMR Vaccines Aged Out No longer eligi ble based on patient's age to complete this topic Meningococcal ACWY Vaccine Aged Out N o longer eligible based on patient's age to complete this topic Meningococcal B Vaccine Aged Out No l onger eligible based on patient's age to complete this topic RSV Immunization Patients Under 20 months Aged Out No longer eligible b ased on patient's age to complete this topic Varicella Vaccines Aged Out No longer eligible based on patient's age to complete this topic Procedures Procedure Name Priority Date/Time Associated Diagnosis Comments HEPATITIS C SCREENING Routine 07/25/2022 HIV SCREENING Routine 07/25/2022 ANNUAL BMP BLOOD TEST Routine 07/25/2022 HEMOGLOBIN A1C Routine 07/25/2022 LIPID PANEL Routine 07/25/2022 URINE ALBUMIN CREATININE RATIO Routine 07/16/2012 COLONOSCOPY Routine 03/05/2008 from Last 3 Months or Most Recently Relevant to Health Maintenance Results * Annual BMP Blood Test (07/25/2022) Pathologist [facility] Annual BMP Blood Test abstracted Result [facility] Provider HEALTH MAINTENANCE Final Result * HIV Screening (07/25/2022) [facility] HIV Screening abstracted Result [facility] Provider HEALTH MAINTENANCE Final Result * Hepatitis C Screening (07/25/2022) Pathologist [facility] Hepatitis C Screening abstracted Result [facility] Provider HEALTH MAINTENANCE Final Result * Hemoglobin A1c (07/25/2022) [facility] Hemoglobin A1C 0.0 % Comment:abstracted, no inter pretation Blood Venous blood specimen / Unknown Result [facility] Provider LAB BLOOD ORDERABLES Tracy l Result * Lipid panel (07/25/2022) [facility] LDL/HDL Ratio 0 Comment:abstracted, no inter pretation Triglycerides 0 mg/dL Comment:abstracted, no inter pretation Cholesterol 0 mg/dL Comment:abstracted, no inter pretation HDL 0 mg/dL Comment:abstracted, no inter pretation LDL Cholesterol 0.0 mg/dL Comment:abstracted, no inter pretation Blood Venous blood specimen / Unknown Result [facility] Provider LAB BLOOD ORDERABLES Tracy l Result * Urine Albumin Creatinine Ratio (07/16/2012) Pathologist [facility] Urine Albumin Creatinine Ratio abstracted Result [facility] Provider HEALTH MAINTENANCE Final Result * Colonoscopy (03/05/2008) Colonoscopy abstracted, no interpretation Anatomical Region Laterality Modality Other Historical Provider HEALTH MAINTENANCE Final Result from Last 3 Months or Most Recently Relevant to Health Maintenance Insurance [facility] [employer] PL[employer] Care Teams [employer] Product Consultant Relationship Specialty Start Date End Date Lucho Escobedo PA [address] [place] [phone] PCP - General 01/05/22
--- OUTSIDE RECORDS SUMMARY | 2024-06-12 10:28 | XMS_ITS | Clinical Summary ---
Author Organization [facility] Address [address] [place] [address] Care Team Providers Care [place] Name Role Phone Lucho Escobedo Primary Care Provider [phone] Source Comments PLEASE NOTE, if this patient is a minor, it may be UNLAWFUL to discuss sensitive information that is contained in these records (such as FAMILY PLANNING, MENTAL HEALTH or SUBSTANCE ABUSE) with the minor patient's parent or other person without the patient's specific authorization.[facility] Allergies No known active allergies Medications blood-glucose meter (ONETOUCH ULTRA2 METER) monitoring kit as needed for blood glucose monitoring 1 Each 10/19/19 21 Active lancets (ONETOUCH DELICA LANCETS) 33 gauge Use daily for blood sugar checks. 100 Each 1 10/19/19 21 Active blood sugar diagnostic (ONETOUCH ULTRA TEST) strips 1 Each once daily 100 Each 10/19/19 21 Active calcium carbonate (OS-LEVI) 500 mg calcium (1,250 mg) chewable tablet CHEW 2 TABLETS BY MOUTH 4 TIMES A DAY NEEDED FOR DYSPEPSIA Authorized by: LATOYA MORALES 11/03/19 21 Active flash glucose scanning reader (FREESTYLE LEISA 14 DAY READER) miscIndications:T ype 2 diabetes mellitus with hyperglycemia, without long-term current use of insulin ([facility]) 1 Kit by miscellaneous route every 14 (fourteen) days (FREESTYLE MANPREET 14 DAY READER) 1 Each 5 01/04/20 [address] tabletIndications :Routine adult health maintenance Take 1 Tablet by mouth once daily 90 Tablet 1 01/04/20 22 Active blood-glucose meter,continuous (DEXCOM G6 DIGITAL SERVICE ENGINEER) misc 1 Device by miscellaneous route as needed. 1 Each 01/05/20 22 Active blood-glucose sensor (DEXCOM G6 SENSOR) katherin 1 Device by miscellaneous route every 10 (ten) days 3 Each 11 01/05/20 22 Active blood-glucose transmitter (DEXCOM G6 TRANSMITTER) katherin 1 Device by miscellaneous route every 3 (three) months 1 Each 3 01/05/20 22 Active metoprolol tartrate (LOPRESSOR) 25 mg tabletIndications :Essential hypertension Take 1 Tablet by mouth once daily 90 Tablet 1 02/06/20 23 Active lisinopriL 30 mg tabletIndications :Primary hypertension Take 1 Tablet by mouth once daily Authorized by: ELVIA HAYDEN 90 Tablet 3 09/20/19 24 Active sildenafiL (VIAGRA) 100 mg tabletIndications :Erectile dysfunction, unspecified erectile dysfunction type Take 1 Tablet by mouth once daily as needed for erectile dysfunction NEEDED FOR ERECTILE DYSFUNCTION!! 30 Tablet 1 02/21/20 24 Active SITagliptin phosphate (JANUVIA) 25 mg tabletIndications :Controlled type 2 diabetes mellitus without complication, without long-term current use of insulin ([facility]) Take 1 Tablet by mouth once daily 90 Tablet 2 03/20/19 25 Active atorvastatin (LIPITOR) 80 mg tablet Take 1 Tablet by mouth nightly at bedtime 90 Tablet 2 04/28/19 25 Active dextroamphetamine -amphetamine (ADDERALL) 20 mg tabletIndications :Attention deficit hyperactivity disorder (ADHD), combined type Take 1 Tablet by mouth once daily 30 Tablet 05/06/19 25 Active Active Problems Patient Care Coordination No te Formatting of this note migh t be different from the original. Pre Visit Plan, 12/11/18, for Lucho Sánchez PA-C patient in for CPE. Robson Valiente. 10/01/18, Last seen for establish care visit. Admitted to H/o NE, DMII, Spinal Stenosis. His blood pressure was 176/101 this visit. 11/21/18, [facility], Ambulatory Summary: Blood Pressure at this encounter 183/104. Former Smoker x 13 years. Past Encounters (07/22/18) for Hypertensive Disorder. Plan of care: 1. Take cymbalta as directed. 2. F/u with new PCP SULY 3. RTC prn worsening Sx's 4. Check blood pressure twice daily following Cymbalta usage to assess normalizing readings. 11/21/18, Flagged labs: Sodium 132, Glucose 330, HgbA1c 11.2, Protein total 8.1, LDL TNP - 139, Cholesterol total 265, Chol/HDL ratio 9.1, Trigylcerides 909 (Rechecked), RBC 6.0, Problem Noted Date Diagnosed Date Financial difficulties 11/21/2023 Housing problems 11/21/2023 Obesity due to excess calories 01/03/2022 Atherosclerosis of coronary artery 01/03/2022 Biceps tendinitis, left 01/03/2022 Disorder of peripheral nervous system 01/03/2022 Left elbow pain 01/03/2022 Lumbar radiculopathy 01/03/2022 Tobacco dependence syndrome 01/03/2022 Diabetes mellitus, type 2 ([facility]) 01/03/2022 Lumbar pain 07/21/2020 Overview (07/25/2022): Addendum by Paula IBARRA, Jose Ovalles on May 08, 2017 9:24 MRI results reviewed and discussed with the patient. He mainly has some foraminal stenosis at L4 and L5. After discussion with him he told me he would call our office and arrange for follow-up with Dr. Calderon (or Elvia Momin). History of drug withdrawal syndrome 12/11/2018 Overview (12/11/2018): 11/21/18, [facility], Ambulatory Summary: Past Encounters (07/22/18) for Drug withdrawal; Hypertensive Disorder. Former smoker x 13 Years 12/11/2018 Overview (12/11/2018): 11/21/18, [facility], Ambulatory Summary: Former Smoker x 13 years. Hypercholesterolemia 11/28/2018 Uncontrolled type 2 diabetes mellitus with hyperglycemia ([facility]) 11/28/2018 Hypertension 11/28/2018 Overview (07/25/2022): BP Readings from Last 1 Encounters: 10/01/18 (!) 176/101 Encounters Date Type Department Care Team Description 05/05/2024 Interim Notes [facility] [id number] [place] [phone] Lucho Escobedo PA Vertigo (Primary Dx); Uncontrolled type 2 diabetes mellitus with hyperglycemia ([facility]); Type 2 diabetes mellitus without complication, with long-term current use of insulin ([facility]); Hypercholesterolemia; Primary hypertension; Essential hypertension; Neck pain; Bilateral shoulder pain, unspecified chronicity 04/28/2024 Interim Notes [facility] [address] [place] [phone] Lucho Escobedo PA Pain in both feet (Primary Dx); Uncontrolled type 2 diabetes mellitus with hyperglycemia ([facility]) 03/20/2024 Interim Notes [id number] [place] [phone] Lucho Escobedo PA Vertigo (Primary Dx); Pain in both feet from Last 3 Months Immunizations Immunization Administration Dates Next Due Flu, Preservative Free 01/19/2021 INFLUENZA, SEASONAL, INJECTABLE 03/15/19,03/09/2015,02/03/2014,12/01,11/23/2011,02/08/2009,02/12/2007 Influenza (FLUBLOK),recombinant,injectable,prese rvative Free 11/21/2023 Influenza Virus Vaccine (FLU MIST), Live Intranasal 01/01/2009 Influenza, Whole 01/07/2008,01/22/2006 Moderna COVID-19 Vaccine, re d cap blue label, 12+ Primary Series 06/02/2020,05/05/2020 PFIZER COVID VACCINE, PURPLE CAP, 12+ 01/19/2021 PNEUMOCOCCAL POLYSACCHARIDE PPV23 12/11/2018, ZOSTER VACCINE, RECOMBINANT (SHINGRIX) 4 Social History Tobacco Use Types Packs/Day Years Used Date Smoking Tobacco: Former Smokeless Tobacco: Never Tobacco Cessation:Counseling Given: Not Answered Alcohol Use Standard Drinks/Week Comments Yes 0 (1 standard drink = 0.6 oz pur e alcohol) Social Connections Answer Date Recorded Connectedness 2 11/21/2023 Financial Resource Strain Answer Date R ecorded Financial Resource Strain 2 2023 Stress Answer Date Recorded Stress 1 11/21/2023 Physical Activity Answer Date Recorded Physical Activity 0 10/28/2018 Food Insecurity Answer Date Recorded Food 1 11/21/2023 Transportation Needs Answer Date Record ed Transportation 1 11/21/2023 Housing Stability Answer Date Recorded Housing 2 11/21/2023 Safety and Environment Answer Date Be rded Safety 0 09/18/2022 Utilities Answer Date Recorded Utilities 2 11/21/2023 Employment Answer Date Recorded Stress 0 01/03/2022 Sex and Gender Information Value Date Recorded Sex Assigned at Male 10/01/2018 12:09 PM PDT Legal Sex Male 8:34 AM PDT Gender Identity Male 10/01/2018 12:09 PM PDT Sexual Orientation Straight 10/01/2018 12 :09 PM PDT Last Filed Vital Signs Vital Sign Reading Time Taken Comments Blood Pressure 158/78 11/21/2023 8:48 AM EDT Pulse 70 11/21/2023 8:48 AM EDT Temperature 36.6 ??C (97.9 ??F) 11/21/2023 8:48 AM ED T Respiratory Rate 16 11/21/2023 8:48 AM EDT Oxygen Saturation 94% 11/21/2023 8:48 AM EDT Inhaled Oxygen Concentration - - Weight 96.6 kg (213 lb) 11/21/2023 8:48 AM EDT Height 185.4 cm (6' 1 ) 11/21/2023 8:48 AM EDT Body Mass Index 28.1 11/21/2023 8:48 AM EDT Plan of Treatment Health Maintenance Due Date Last Done Comments Anxiety Screening 1961 Dental Examination 1961 Diabetes Foot Exam 1961 Urine Albumin Creatinine Rat io Screening 1961 Retinopathy Screening 1974 Imm-DTaP/Tdap/Td (1 - Tdap) 02/08/1980 CT Colonography 2006 Colonoscopy 2006 Colorectal Cancer Screening 2006 FIT/gFOBT 2006 Fecal DNA 2006 Flexible Sigmoidoscopy 2006 Imm-Pneumococcal (2 of 2 - PCV) 12/12/2019 9, 01/22/2006 Diabetes HbA1c 10/25/2022 07/25/2022, 05/2 05/2022, 07/25/2022, Additional history exists Tobacco Cessation Counseling (#1) 07/25/2023 023 Lipid Screening 07/26/2023 07/25/2022, 07/04, 11/21/2018, Additional history exists Serum Creatinine 07/26/2023 07/25/2022, 11/21/2018 [id number] ( season) 2023 01/19/2021, 06/02/2020, 05/05/2020 Imm-Zoster, Recombinant (2 of 2) 01/16/2024 11/21/19 Depression Monitoring 02/20/2024 11/21/2023 , 09/18/2022, 01/03/2022, Additional history exists Alcohol and Drug Screen 03/05/2024 11/21/19, 09/18/2022, 07/25/2022, Additional history exists Annual Preventive Care Visit 11/20/2024 11/21/2023, 12/11/2018 Tobacco Screening 11/20/2024 11/21/2023, 07/25/2022 HIV Screening Completed 07/25/2022, 07/25/2022 Hepatitis C Screening Completed 07/25/2022 Imm-Influenza Completed 11/21/2023, 01/03, 03/15/2017, Additional history exists Goals Goal Patient Goal Type Associated Problems Recent Progress Patient-Stated? Author Blood Pressure < 130/80 Blood Pressure Hypertension 158/78(2023 8:48 AM EDT) No Jovon Alegre, PharmD HEMOGLOBIN A1C < 7.0 Result Component Uncontrolled type 2 diabetes mellitus with hyperglycemia (HCC-CMS) 8.9( 10:46 AM EDT) No Jovon Alegre, PharmD Procedures Procedure Name Priority Date/Time Associated Diagnosis Comments REFERRAL SCANNED DOCUMENT 05/26/2024 3:00 AM EDT HIV 1/2 AG & AB W/RFLX (4TH GEN) Routine 07/25/2022 10:46 AM EDT Uncontrolled type 2 diabetes mellitus with hyperglycemia (HCC-CMS) Mixed hypercholesterolemia and hypertriglyceridemia Essential hypertension Constipation, unspecified constipation type COMPREHENSIVE METABOLIC PANEL Routine 07/25/2022 10:46 AM EDT Uncontrolled type 2 diabetes mellitus with hyperglycemia (HCC-CMS) Mixed hypercholesterolemia and hypertriglyceridemia Essential hypertension Constipation, unspecified constipation type HEPATITIS C AB W/RFLX HCV RNA, QT, RT PCR Routine 07/25/2022 10:46 AM EDT Uncontrolled type 2 diabetes mellitus with hyperglycemia ([facility]CC-CMS) Mixed hypercholesterolemia and hypertriglyceridemia Essential hypertension Constipation, unspecified constipation type LIPID PANEL Routine 07/25/2022 10:46 AM EDT Uncontrolled type 2 diabetes mellitus with hyperglycemia (HCC-CMS) Mixed hypercholesterolemia and hypertriglyceridemia Essential hypertension Constipation, unspecified constipation type HGBA1C W/MPG Routine 07/25/2022 10:46 AM EDT Uncontrolled type 2 diabetes mellitus with hyperglycemia (HCC-CMS) Mixed hypercholesterolemia and hypertriglyceridemia Essential hypertension Constipation, unspecified constipation type from Last 3 Months or Most Recently Relevant to Health Maintenance Results * REFERRAL SCANNED DOCUMENT (05/26/2024 3:00 AM EDT) 05/26/2024 3:00 AM EDT us Lucho VANEGAS SCAN REFERRAL Final Result * HEPATITIS C AB W/RFLX HCV RNA, QT, RT PCR (07/25/2022 10:46 AM EDT) HEPATITIS C ANTIBODY NON-REACT HUGO NON-REACT HUGO [facility] SIGNAL TO CUT-OFF 0.22 <[address] [facility] Comment: HCV antibody was non-reactive. There is no laboratory evidence of HCV infection. In most cases, no further action is required. However, if recent HCV exposure is suspected, a test for HCV RNA (test code 39544) is suggested. For additional information please refer to http://education.[employer]/faq/YPC06h0 (This link is being provided for informational/ educational purposes only.) Blood Blood / Unknown 07/25/2022 1 0:46 AM EDT 07/25/2022 10:46 AM EDT us Lucho VANEGAS LAB - BLOOD DRAW Final Result Performing Organization Address [facility]/ZIP Co de Phone Number [facility] [address] [address], [place] [address] [phone] * HIV 1/2 AG & AB W/RFLX (4TH GEN) (07/25/2022 10:46 AM EDT) HIV AG/AB, 4TH GEN NON-REAC TIVE NON-REAC TIVE [facility] Comment: HIV-1 antigen and HIV-1/HIV-2 antibodies were not detected. There is no laboratory evidence of HIV infection. PLEASE NOTE: This information has been disclosed to you from records whose confidentiality may be protected by state law. ??If your state requires such protection, then the state law prohibits you from making any further disclosure of the information without the specific written consent of the person to whom it pertains, or as otherwise permitted by law. A general authorization for the release of medical or other information is NOT sufficient for this purpose. ?? For additional information please refer to http://education.[employer]/faq/HYH135 (This link is being provided for informational/ educational purposes only.) The performance of this assay has not been clinically validated in patients less than 2 years old. Blood Blood / Unknown 07/25/2022 1 0:46 AM EDT 07/25/2022 10:46 AM EDT L[facility] - BLOOD DRAW Final Result [facility] [address] [address], [place] [address] [phone] * (ABNORMAL) HGBA1C W/MPG (07/25/2022 10:46 AM EDT) HEMOGLOBIN A1C 8.9(H) <5.7 % of total Hgb [facility] Comment: For someone without known diabetes, a hemoglobin A1c value of 6.5% or greater indicates that they may have diabetes and this should be confirmed with a follow-up test. For someone with known diabetes, a value <7% indicates that their diabetes is well controlled and a value greater than or equal to 7% indicates suboptimal control. A1c targets should be individualized based on duration of diabetes, age, comorbid conditions, and other considerations. Currently, no consensus exists regarding use of hemoglobin A1c for diagnosis of diabetes for children. ?? MEAN PLASMA GLUCOSE 240 mg/dL (calc) [employer] Blood Blood / Unknown 07/25/2022 1 0:46 AM EDT 07/25/2022 10:46 AM EDT us Lucho [facility]ANE[facility] - BLOOD DRAW Edited Result - Final [facility] [address] [place] [id number], [facility] [address] [place] [phone] * (ABNORMAL) LIPID PANEL (07/25/2022 10:46 AM EDT) [facility] Signature CHOLESTEROL, TOTAL 129 <200 mg/dL [facility] HDL CHOLESTEROL 35(L) > OR = 40 mg/dL [facility] TRIGLYCERIDES 157(H) <150 mg/dL [facility] LDL-CHOLESTEROL 71 99 mg/dL (calc) [facility] Comment: Reference range: <100 Desirable range <100 mg/dL for primary prevention; ?? <70 mg/dL for patients with CHD or diabetic patients with > or = 2 CHD risk factors. LDL-C is now calculated using the Manas-Uvaldo calculation, which is a validated novel method providing better accuracy than the Friedewald equation in the estimation of LDL-C. Manas LOPES et al. KIMBERLY. 2013;310(19): 8833-3104 (http://education.[employer]/faq/RME243) CHOL/HDLC RATIO 3.7 <5.0 (calc) [facility] NON-HDL CHOLESTEROL 94 <130 mg/dL (calc) [facility] Comment: For patients with diabetes plus 1 major ASCVD risk factor, treating to a non-HDL-C goal of <100 mg/dL (LDL-C of <70 mg/dL) is considered a therapeutic option. Blood Blood / Unknown 07/25/2022 1 0:46 AM EDT 07/25/2022 10:46 AM EDT [facility] - BLOOD DRAW Final Result [facility] [address] [address], [place] [facility] [address] [place] [address] * (ABNORMAL) COMPREHENSIVE METABOLIC PANEL (07/25/2022 10:46 AM EDT) GLUCOSE 286(H) 65 - 99 mg/dL [facility] Comment: ?Fasting reference interval For someone without known diabetes, a glucose value >125 mg/dL indicates that they may have diabetes and this should be confirmed with a follow-up test. UREA NITROGEN (BUN) 19 7 - 25 mg/dL [facility] CREATININE (blood) 0.77 0.70 - 1.35 mg/dL [facility] EGFR 102 > OR = 60 mL/min/[address] [facility] Comment: The eGFR is based on the CKD-EPI 2020 equation. To calculate the new eGFR from a previous Creatinine or Cystatin C result, go to https://www.kidney.org/professionals/ kdoqi/gfr%5Fcalculator BUN/CREATININE RATIO NOT APPLICABLE 6 - [address] [facility] SODIUM 132(L) 135 - 146 mmol/L [facility] POTASSIUM 4.3 3.5 - 5.3 mmol/L [facility] CHLORIDE 96(L) 98 - 110 mmol/L [facility] CARBON DIOXIDE 22 20 - 32 mmol/L [facility] CALCIUM 9.8 8.6 - 10.3 mg/dL [facility] PROTEIN, TOTAL 8.0 6.1 - 8.1 g/dL [facility] ALBUMIN 4.7 3.6 - 5.1 g/dL [facility] GLOBULIN 3.3 1.9 - 3.7 g/dL (calc) [facility] ALBUMIN/GLOBUL IN RATIO 1.4 1.0 - 2.5 (calc) [facility] BILIRUBIN, TOTAL 0.6 0.2 - 1.2 mg/dL [facility] ALKALINE PHOSPHATASE 65 35 - 144 U/L [employer] DIAGNOSTICS [facility] AST 14 10 - 35 U/L [facility] ALT 18 9 - 46 U/L [facility] Blood Blood / Unknown 07/25/2022 1 0:46 AM EDT 07/25/2022 10:46 AM EDT [facility] - BLOOD DRAW Edited Result - Final [facility] [address] [address], [place] [facility] [address] [place] [address] from Last 3 Months or Most Recently Relevant to Health Maintenance Insurance [employer] Party Member Subscriber Plan / Payer (Ef fective 2019-Present) Name:Inocente Barnard Relation to Subscriber:Self Name:Inocente Barnard Payer ID:[id number] Type:Indemnity Address: [address] [address] Care Teams [place] Relationship Specialty Start Date End Date Lucho Escobedo PA [address] [place] [address] PCP - General Internal Medicine 09/03/18
--- OUTSIDE RECORDS SUMMARY | 2024-06-12 10:28 | XMS_ITS | Encounter Summary ---
Author Organization [facility] Address [address] [place] [address] Care Team Providers Care Can Reforming Machine Operator Name Role Phone Lucho Escobedo Primary Care Provider [phone] Reason for Referral * Neurosurgery (Routine) - Closed Specialty Diagnoses / Procedures Referred By Contac t Referred To Contact Diagnoses History of lumbar laminectomy for spinal cord decompression Lucho Escobedo PA [address] [place] [address] Phone: tel: fax: Neurosurgery, [address] [place], [place] Phone: tel: fax: Referral ID Status Reason Start Date Expiration Date V isits Requested Visits Authorized [id number] Closed Specialty Services Required 01/10/2022 01/10/2023 1 1 Comments Patient with history spinal compression decompression surgery, now with ongoing bowel dysfunction, please reach out. Encounter Details Date Type Department Care Team (Late st Contact Info) Description 01/10/2022 Interim Notes [address] [phone] Lucho Escobedo PA [address] [place] [address] History of lumbar laminectomy for spinal cord decompression (Primary Dx) Social History Tobacco Use Types Packs/Day Years Used Date Smoking Tobacco: Former Smokeless Tobacco: Never Alcohol Use Standard Drinks/Week Comments Yes 0 (1 standard drink = 0.6 oz pur e alcohol) Social Connections Answer Date Recorded Social Connections and Isolation 1 01/03/2022 Financial Resource Strain Answer Date R ecorded Financial Resource Strain 1 2021 Stress Answer Date Recorded Stress 1 01/03/2022 Physical Activity Answer Date Recorded Physical Activity 0 10/28/2018 Food Insecurity Answer Date Recorded Food 1 01/03/2022 Transportation Needs Answer Date Record ed Transportation 1 01/03/2022 Housing Stability Answer Date Recorded Housing 1 01/03/2022 Safety and Environment Answer Date Be rded Safety 1 01/03/2022 Utilities Answer Date Recorded Utilities 1 01/03/2022 Employment Answer Date Recorded Stress 0 01/03/2022 Sex and Gender Information Value Date Recorded Sex Assigned at Male 10/01/2018 12:09 PM PDT Legal Sex Male 8:34 AM PDT Gender Identity Male 10/01/2018 12:09 PM PDT Sexual Orientation Straight 10/01/2018 12 :09 PM PDT COVID-19 Exposure Response Date Recorded In the last 10 days, have yo u been in contact with someone who was confirmed or suspected to have Coronavirus/COVID-19? No / Unsure 01/03/2022 5:06 PM EDT documented as of this encounter Plan of Treatment Not on file documented as of this encounter Goals Goal Patient Goal Type Associated Problems Recent Progress Patient-Stated? Author Blood Pressure < 130/80 Blood Pressure Hypertension 158/78(2023 8:48 AM EDT) No Jovon Alegre, PharmD HEMOGLOBIN A1C < 7.0 Result Component Uncontrolled type 2 diabetes mellitus with hyperglycemia ([facility]) 8.9( 10:46 AM EDT) No Jovon Alegre, Richard documented as of this encounter Procedures Procedure Name Priority Date/Time Associated Diagnosis Comments REFERRAL TO NEUROSURGERY Routine 05/26/2022 3:00 AM EDT History of lumbar laminectomy for spinal cord decompression documented in this encounter Results * REFERRAL TO NEUROSURGERY (05/26/2022 3:00 AM EDT) 05/26/2022 3:00 AM EDT Lucho VANEGAS REFERRAL Edited Result - Final documented in this encounter Visit Diagnoses Diagnosis History of lumbar laminectomy for spinal cord decompression- Primary Other postprocedural status documented in this encounter Additional Health Concerns Assessment Noted Time PHQ-9 Depression Total Score: 6 01/04/20 22 5:09 PM PDT documented as of this encounter Care Teams Can Reforming Machine Operator Relationship Specialty Start Date End Date Lucho Escobedo PA [address] [place] [address] PCP - General Internal Medicine 09/03/18 documented as of this encounter
== END 2024-06-12 10:07 | disposition home or self-care (01) ==
LOC: HO.HUSH 09:30
PROVIDERS: Visit Provider Urology
DX: R33.9 Retention of urine, unspecified (principal); E11.69 Type 2 diabetes mellitus with other specified complication; N52.1 Erectile dysfunction due to diseases classified elsewhere
CPT/HCPCS: 99214; G2211

== ENCOUNTER → 2024-06-12 09:30 | Outpatient (BNVA) | payer OTHER, SELFPAY | PROVIDERS: Visit Provider Urology | DX: R33.9 Retention of urine, unspecified (principal); E11.69 Type 2 diabetes mellitus with other specified complication; N52.1 Erectile dysfunction due to diseases classified elsewhere | CPT/HCPCS: 99212 ==

== ENCOUNTER 2024-11-24 13:22 | Outpatient (AMB) | payer OTHER, SELFPAY ==
--- NOTE | 2024-11-24 13:24 | A.OFFVIS_ITS ---
Vital Signs 11/24/24 13:27 Height 6 ft 1 in Weight 211 lb 10.3 oz BMI 27.9 BP 156/70 H Blood Pressure Location Lt brachial Position Sitting Pulse 80 Intake Visit Reasons: 6m Intake Note: Inocente presents in the office as a 6 month follow up. CC: States he has been in and out of the hospital due to infections and states that he feels the same as before. Allergies No Known Allergies Allergy (Verified 06/12/24 09:38) HPI HPI 6m: Details: 64 yr old m here for f/u for eosinophilic colitis RECAP: He decribes problems since last when he had numbness from torso down along with bladder retention he had bladder drained and was sent home since then he has minimal feeling from waist to the feet he did get spinal surgery at July 2021 and had release of nerves from the spine, and relieved pain and neuropathy but the numbness persisted --he was told things may incrementally improve or not with time constant feeling of wanting to go to the bathroom he has been told by Dr oliver he has overflow incontinence, he soils himself few times a week, he has no feeling of it no blood in the stool he has nausea all the time he has some pelvic fullness he can empty bladder and urinate but he has to push he had colonoscopy aged 53 and aged 46 ---may have had some polyps Colonoscopy: granular mucosa, Path with increased eosinophils RAST studies were neg lactoferrin was neg He had spinal stim placed by Dr Pugh EGD/[facility] 07/04/23 Endoscopy Findings: erosive duodenitis gastritis esophagitis Colonoscopy Findings: diverticulosis internal hemorrhoids path: no eosinophils, nml TI and colon CT 2023 diverticulosis cholelithiasis INTERIM: He feels the stools are not formed most of the times he still has urgency he is up for stool and urine issues thru out the night both are very variable bowels are 1000% better but going several times a day, stools are formed most of the time no further extreme diarrhea he has not tried probiotics denies abdominal pain mild nausea, but he is unsure if due to vertigo issues EXAM: GENERAL: The patient is well developed and nontoxic. VITAL SIGNS:see workflow HEENT: Nonicteric sclerae, PERRLA, EOMI. Oropharynx clear. Moist mucous membranes. Conjunctivae appear well perfused. No thyroid mass. CHEST: Chest wall is nontender. HEART: Regular rate and rhythm without murmurs. LUNGS: Clear to auscultation bilaterally. ABDOMEN: Soft, positive bowel sounds, nontender, no organomegaly.no flank tenderness SKIN: No rash, no excessive bruising, petechiae, or purpura. NEUROLOGIC: Cranial nerves II-XII intact without motor/sensory deficit. A/P: 1/ Fecal incontinence secondary to spinal cord injury and possible diabetic autonomic neuropathy, s/p spinal stimulator -loose stools ongoing, may have SIBO, SIFO, BAM, CHO intolerance, dysautonomia Plan: 1/ Try welchol, if no better then lomotil, maybe trial of anti fungal, or rifaximine PFSH Medical History Fecal incontinence Lower extremity numbness Colitis Diabetic autonomic neuropathy CAD (coronary artery disease) Diabetes HTN (hypertension) Surgical History History of esophagogastroduodenoscopy (EGD) S/P placement of nerve stimulator Hx of discectomy Hx of colonoscopy History of right coronary artery stent placement Family History Father Colon cancer Social History Household Members: Spouse Patient Tobacco Use Status: Former Tobacco user Tobacco use type: Cigarette Second Hand Smoke Exposure: No service: No Physical Exam Vital Signs: Last Vital Signs Pulse 80 11/24/24 13:27 BP 156/70 H 11/24/24 13:27 BMI result Body Mass Index 27.9 Assessment & Plan Assessment & Plan (1) Incontinence of feces: Code(s): R15.9 - Full incontinence of feces Category: Medical Qualifiers: Fecal incontinence type: fecal urgency Qualified Code(s): R15.9 - Full incontinence of feces; R15.2 - Fecal urgency Plan: as above Medications: New colesevelam (WelChol) 1,250 mg (2 x 625 mg) PO BID 60 tabs 0RF Coding Level of Care Code Est Pt Level 3 (32493) Diagnoses Incontinence of feces with fecal urgency R15.9; R15.2 Fecal incontinence type: fecal urgency
[2024-11-24 13:27] VITALS: BP 156/70; PULSE 80; BMI 27.9
--- OUTSIDE RECORDS SUMMARY | 2024-11-24 15:44 | XMS_ITS | Encounter Summary ---
Author
== END 2024-11-24 13:51 | disposition home or self-care (01) ==
LOC: HO.HGI 13:23
PROVIDERS: PCP Physician Assistant; Visit Provider Internal Medicine Gastroenterology
DX: R15.9 Full incontinence of feces (principal); R15.2 Fecal urgency
CPT/HCPCS: 99213

== ENCOUNTER → 2024-11-24 13:22 | Outpatient (BNVA) | payer OTHER, SELFPAY | PROVIDERS: PCP Physician Assistant; Visit Provider Internal Medicine Gastroenterology | DX: R15.2 Fecal urgency (principal); R15.9 Full incontinence of feces | CPT/HCPCS: 99212 ==